=== PATIENT | male | born 1930 | race Caucasian/White ===

== ENCOUNTER 2016-06-23 11:36 | Inpatient (IN) | payer MEDICARE, BC ==
[2016-06-23] VITALS (36 sets, daily range): BP systolic 93–133; BP diastolic 59–108; PULSE 44–74; RESP 14–26; TEMP 95.9; Ht 180.3 cm; Wt 76.1 kg
[~2016-06-23] VITALS: Ht 180.3 cm; Wt 76.1 kg
[2016-06-23] MEDS ORDERED: OMEP40CA6 PO (11:45)
[2016-06-23] MEDS ORDERED: MULTI PO (11:45)
[2016-06-23] MEDS ORDERED: SIMV20TA PO (11:46)
[2016-06-23] MEDS ORDERED: ETOD400T PO (11:46)
[2016-06-23] MEDS ORDERED: PIOG30TA2 PO (11:47)
[2016-06-23] MEDS ORDERED: CEFEPIME 2GM/50 ML (PMX) 50 ML IVPB STA (11:47)
[2016-06-23] MEDS ORDERED: FURO40TA4 PO (11:47)
[2016-06-23] MEDS ORDERED: METF500T4 PO (11:47)
[2016-06-23] MEDS ORDERED: PROPOFOL 100 ML IV STA (11:50)
[2016-06-23] MEDS ORDERED: MIDAZOLAM (DRIP) 50 mg/50 mL 50 ML IV STA (11:50)
[2016-06-23] MEDS ORDERED: VANCOMYCIN 1 GM (PMX) 250 ML IVPB ONE (12:00)
[2016-06-23 12:09] LABS: ADD SCAN DIFF NO
[2016-06-23] MEDS ORDERED: SOD CHLORIDE 0.9% 100 ML ONE (12:11)
[2016-06-23] MEDS ORDERED: IODIXANOL LOCM 50 ML BTL ONE (12:11)
[2016-06-23] MEDS ORDERED: IODIXANOL LOCM 100 ML BTL ONE (12:11)
[2016-06-23 12:12] LABS: HEMATOCRIT 31.7 % (42.0-52.0); MEAN CORPUSCULAR HEMOGLOBIN 30.7 pg (29.0-33.0); MEAN CORPUSCULAR HGB CONC 31.5 g/dl (32.0-37.0); MEAN CORPUSCULAR VOLUME 97.2 fl (82.0-101.0); MEAN PLATELET VOLUME 11.4 fl (7.4-10.4); PLATELET COUNT 182 10^3/UL (140-415); RED BLOOD COUNT 3.26 10^6/ul (4.70-6.10); RED CELL DISTRIBUTION WIDTH 18.1 % (11.5-14.5); WHITE BLOOD COUNT 6.4 10^3/ul (4.8-10.8)
[2016-06-23 12:24] LABS: INR 1.78; PROTIME 20.9 Sec (12.2-14.2); PT RATIO 1.6
[2016-06-23 12:25] LABS: PARTIAL THROMBOPLASTIN TIME 49.9 Sec (25.0-35.0)
--- NOTE | 2016-06-23 12:27 | RADRPT ---
PROCEDURE: XR Chest 1 view. CLINICAL INDICATION: Shortness of breath, intubation. TECHNIQUE: AP views of the chest were obtained. COMPARISON: None. FINDINGS: The heart is large. Calcified atherosclerosis is noted in the aorta. Endotracheal tube has its tip approximately 5.3 cm above the rob. Diffuse interstitial prominence is seen in both lungs. Scat tered atelectasis is seen in both lungs. No consolidations are identified. No pneumothorax is seen. Calcified granuloma is seen at the right lung base. The osseous structures are osteopenic. Old he aled or healing lateral left third through sixth rib fractures are seen. IMPRESSION: Cardiomegaly with calcified atherosclerosis in the aorta. Endotracheal tube with its tip approximately 5.3 cm above the rob. Diffuse mild interstitial prominence in both lungs. Interstitial prominence could be chronic. Scattered subsegmental atelectasis in both lungs. Calcified granuloma at the right lung base. Old healed or healing fractures of the lateral left 3rd through 6th ribs. RPTAT: AA .Drew Scott MD, MD Date Time Electronically viewed and signed by .Drew Scott MD, MD on 06/23/2016 12:26 .P/
[2016-06-23 12:31] LABS: ALBUMIN 3.5 g/dl (3.3-4.9); POTASSIUM 3.5 mmol/L (3.5-5.1)
[2016-06-23 12:33] LABS: CREATININE 1.89 mg/dl (0.61-1.24)
[2016-06-23 12:34] LABS: ALBUMIN/GLOBULIN RATIO 1.25; BILIRUBIN,INDIRECT 0.1 mg/dl (0-1.1); BILIRUBIN,TOTAL 0.1 mg/dl (0.2-1.3); CALCIUM 8.5 mg/dl (8.4-10.2); TOTAL PROTEIN 6.3 g/dl (6.1-8.1)
[2016-06-23 12:40] LABS: TROPONIN-I 0.331 ng/ml (0.00-0.12)
--- NOTE | 2016-06-23 12:42 | RADRPT ---
PROCEDURE: CT Brain without contrast. CLINICAL INDICATION: Possible Sepsis TECHNIQUE: A multiplanar CT of the brain was performed on a CT scanner utilizing axial imaging fro m the skull base through the vertex without IV contrast. The CTDIvol is 44 mGy and the DLP is 810.2 5 mGycm. One or more of the following dose reduction techniques were utilized: Automated exposure control, adjustment of the mA and/or kV according to patient size, use of iterative reconstruction t echnique. COMPARISON: None FINDINGS: No evidence of intracranial hemorrhage or abnormal extra-axial fluid collection. Minimal periventricular and subcortical white matter low attenuation compatible with sequelae of chr onic microvascular ischemic injury. The brain parenchyma is otherwise normal attenuation and morph ology with preservation of ball white differentiation. The ventricles and subarachnoid spaces are pr ominent compatible with age appropriate volume loss.Physiologic basal ganglia calcification. Atherosclerotic calcification of the cavernous internal carotid arteries. Minimal lobulated mucosal thickening ethmoid air cells with bilateral sphenoid and right maxillary s inus fluid levels compatible with acute and chronic inflammatory change. There is complete opacific ation of the left mastoid air cells and middle ear cavity. The ossicles are intact without erosion or destruction. Normal appearance of the scutum. The basal cisterns, posterior fossa contents, brainstem, craniocervical junction, orbits, pituitary axis, paranasal sinuses, right mastoid air cells, and calvarium are unremarkable. IMPRESSION: 1. No intracranial hemorrhage or acute intracranial abnormality. 2. Marked opacification of the left mastoid air cells and middle ear cavity compatible with otomast oiditis. Small fluid levels within the sphenoid and right maxillary sinus with chronic mucosal thic kening compatible with acute and chronic inflammatory change. No evidence of ossicular erosion or d estruction. 3. Mild chronic microvascular ischemic change and age appropriate volume loss. RPTAT:AAJJ Physician Ortiz Date Time Electronically viewed and signed by Physician Ortiz on 06/23/2016 12:41 [place]/
[2016-06-23 12:47] LABS: LYMPHOCYTES # 1.1 10^3/ul (0.8-2.9); MONOCYTE # 0.2 10^3/ul (0.3-0.9); NEUTROPHIL # 3.5 10^3/ul (1.6-7.5)
--- NOTE | 2016-06-23 13:01 | RADRPT ---
AMENDMENT: 06/23/2016 1:59:58 PM Alex Ken Md These findings were discussed with Dr. Hernandez over the phone on 06/23/2016 at 13:50 hours . PROCEDURE: CT angiogram of the chest, abdomen and pelvis with 3-D reconstructions CLINICAL INDICATION: r/o PE TECHNIQUE: CT angiogram of the chest, abdomen and pelvis was performed on a multislice CT scanner. The patient was scanned after administration of intravenous contrast. Sagittal and coronal reform atted images were obtained from the axial source images. 3D MIP reformatted images were also created from the axial source images. DLP 933.31 mGycm CTDI vol 35.21, 10.59 mGy COMPARISON: None FINDINGS: ANGIOGRAM FINDINGS: There are no pulmonary emboli. There is no acute dissection or aneurysm of the thoracic or abdominal aorta. The aortic root measures 3.3 cm in diameter. The ascending aorta measures 3.9 cm in diameter. The mid aortic arch measures 2.8 cm in diameter. Great vessel origins off the aortic arch are widel y patent. A bovine arch is noted. The descending thoracic aorta measures 2.8 cm in diameter at the level of the left pulmonary artery and 2.6 cm in diameter just above the diaphragmatic hiatus. The celiac, SMA, and STEFFI are widely patent. There are single renal arteries bilaterally which are widely patent. There is tortuosity of the infrarenal aorta as well as focal ectasia up to 2.9 cm in diameter with a center line measurement. Common, internal and external iliac arteries are patent bilaterally. The HAND TUFTER and proximal SFA and profunda arteries are patent bilaterally. ANCILLARY FINDINGS: There are nondisplaced fractures in the anterolateral aspect of the right ribs 2-5 with a mildly dis placed fracture of the inferolateral aspect of the right sixth rib. Deformities of the anterolateral aspect of the left ribs 2-7 is likely from subacute to chronic frac tures. Loss of height the superior endplate of L2 is likely from a prominent Schmorl's node or, less likely , an age - indeterminate compression fracture. Stippled calcifications are noted in the proximal right femur, right iliac wing, and the L1 vertebra l body which are nonspecific, but may be enchondromas. The tip of an endotracheal tube is noted above the rob. There is a calcified granuloma in the right lower lobe. There is mild cardiomegaly. A Anderson catheter balloon is noted. The appendix is within normal limits. There are colonic diverticula without evidence of diverticulitis. IMPRESSION: Nondisplaced fractures of the right ribs 2-5 as well as a mildly displaced fracture of the right six th rib. Subacute to chronic fractures of the left ribs 2-7. Loss of height at the superior endplate of L2 is likely from a prominent Schmorl's node although an age - indeterminate compression fracture cannot be excluded. Correlation with physical exam for ten derness to palpation is recommended. No CT evidence for pulmonary emboli. 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 Endotracheal tube above the rob. Mild cardiomegaly. RPTAT: EE Physician Tomas Date Time Electronically viewed and signed by Physician Tomas on 06/23/2016 14:00 /
--- NOTE | 2016-06-23 13:31 | RADRPT ---
PROCEDURE: XR Chest. CLINICAL INDICATION: TLc placement TECHNIQUE: Single frontal view of the chest was obtained. COMPARISON: CTA chest/abdomen/pelvis from 06/23/2016 FINDINGS: The tip of an endotracheal tube is noted above the rob. There is mild cardiomegaly with mild prominence of interstitial markings, likely due to congestive c hanges. A calcified granuloma is noted at the right lung base. The aortic arch is calcified. There is no significant pleural effusion or pneumothorax. IMPRESSION: No focal infiltrates or effusions. Endotracheal tube above the rob. Mild cardiomegaly and congestive changes. Aortic atherosclerosis. Please note that acute fractures of right ribs 2-6 as well as subacute to chronic fractures of the l eft ribs 2-7 are identified on the CTA study from the same date which are not well visualized in the current chest x-ray study. RPTAT: EE Physician Tomas Date Time Electronically viewed and signed by Physician Tomas on 06/23/2016 13:31 /
[2016-06-23 13:33] LABS: ADD UMIC YES; URINE BILIRUBIN (Dip) 1+ (NEGATIVE); URINE BLOOD (Dip) 1+ (NEGATIVE); URINE COLOR LT. YELLOW (YELLOW); URINE GLUCOSE (Dip) NEGATIVE (NEGATIVE); URINE KETONES (Dip) NEGATIVE (NEGATIVE); URINE LEUKOCYTE ESTERASE (Dip) NEGATIVE (NEGATIVE); URINE NITRITE (Dip) NEGATIVE (NEGATIVE); URINE TOTAL PROTEIN (Dip) 1+ (NEGATIVE); URINE UROBILINOGEN (Dip) 0.2 E.U./dL (0.1-1.0)
[2016-06-23] MEDS ORDERED: VECURONIUM 100 MG in DEXTROSE 5% 100 ML IV ONE (13:34)
[2016-06-23 13:44] LABS: SQUAMOUS EPITHELIAL CELL,UR FEW; URINE RBCS 0-2 /HPF (0)
[2016-06-23 13:45] LABS: AADO2 Arterial 234.7 mmHg (7.0-24.0); Allen Test ACCEPTAB; Arterial Base Excess -4.8 mmol/L (-3.0-3); Arterial COHb 0.3 % (0.0-3.0); Arterial Fraction of Oxyhgb 98.3 % (93.0-99.0); Arterial HCO3 19.1 mmol/L (22.0-26.0); Arterial MetHb 0.6 % (0.0-1.5); Arterial Total Hemglobin 8.7 g/dl (12.0-18.0); MODE VENT - AC
[2016-06-23] MEDS ORDERED: VECURONIUM 10 MG VIAL IV ONE (14:00)
[2016-06-23] MEDS ORDERED: ASPIRIN 300 MG SUPP PR ONE (14:00)
--- NOTE | 2016-06-23 14:44 | ERA ---
ER Documentation Chief Complaint Date/Time DATE: 06/23/16 TIME: 14:35 Chief Complaint BROUGHT IN VIA EMS FROM HOME DUE TO CARDIAC ARREST HPI History unobtainable from patient secondary to his critical condition at this time. History is obtained from EMS. This is an 85-year-old male who was transported via ambulance to the emergency room after a cardiac arrest. According to EMS when they arrived at the patient's home the patient was unresponsive, he was in a PEA rhythm. CPR was started and the patient was given a total of 3 mg of epinephrine. There was return of spontaneous circulation and the patient was transported to the emergency room for further evaluation. According to patient's family members the patient was doing fine last night, was complaining of mild back pain. The patient was not complaining of any chest pain or shortness of breath this morning according to his . ROS All systems reviewed and are negative except as per history of present illness. Medications Home Meds Reported Medications Pioglitazone Hcl* (Actos*) 30 Mg Tablet, 30 MG PO DAILY, #30 TAB 06/23/16 Furosemide* (Furosemide*) 40 Mg Tablet, 40 MG PO BID, TAB 06/23/16 Metformin Hcl* (Metformin Hcl*) 500 Mg Tablet, 1000 MG PO WITH BREAKFAST, #30 TAB 06/23/16 Simvastatin* (Zocor*) 20 Mg Tablet, 20 MG PO QHS, #30 TAB 06/23/16 Etodolac (Etodolac) 400 Mg Tablet, 400 MG PO BID Y for PAIN, TAB 06/23/16 Multivitamins* (Theragran*) 1 Tab Tab, 1 TAB PO DAILY, TAB 06/23/16 Omeprazole* (Omeprazole*) 40 Mg Capsule.dr, 40 MG PO DAILY, #30 CAP 06/23/16 Allergies Allergies: Coded Allergies: No Known Allergies (Unverified Allergy, Unknown, 06/23/16) PMhx/Soc Medical and Surgical Hx: Unable to obtain Hx Alcohol Use: Yes Hx Substance Use: No Hx Tobacco Use: No Smoking Status: Never smoker Physical Exam Vitals Vital Signs Date Time Temp Pulse Resp B/P Pulse Ox O2 Delivery O2 Flow Rate FiO2 06/23/16 11:46 97.9 104 18 131/112 96 Physical Exam INITIAL VITAL SIGNS: Reviewed by me GENERAL: The patient is well developed, severe respiratory distress, mildly cyanotic HEENT: Pupils equal, round, and reactive to light. There is no scleral icterus. NECK: Mild bilateral JVD, C-spine is soft and supple, there is no meningismus. There is no cervical lymphadenopathy. LUNGS: Coarse breath sounds bilaterally. There are no rales, wheezes or rhonchi. HEART: Irregularly irregular rhythm no murmurs, clicks, rubs or gallops. ABDOMEN: Soft, non-tender, non-distended. There are bowel sounds in all four quadrants. No rebound or guarding. EXTREMITIES: There is no peripheral cyanosis or edema. No focal swelling or erythema. NEUROLOGICAL: GCS of 3 SKIN: There is no apparent rash or petechiae. HEME/LYMPHATIC: There is no evidence of excessive bruising or lymphedema. PSYCHIATRIC: Unable to assess secondary to clinical condition Result Diagram: 06/23/16 1150 06/23/16 1150 Results 24 hrs Laboratory Tests Test 06/23/16 11:47 06/23/16 11:50 06/23/16 12:40 06/23/16 13:43 Blood Gas Specimen Source Blood arterial Arterial Blood Date Drawn 06/23/2016 1:36:31 PM Arterial Blood pH (Temp corrected) 7.411 Arterial Blood pCO2 (Temp correct) 30.8mmhg Arterial Blood pO2 (Temp corrected) 447.5mmHG Arterial Blood HCO3 19.1mmol/L Arterial Blood Base Excess -4.8mmol/L Arterial Blood Oxygen Saturation 99.2mmHG Dexter Test ACCEPTAB Arterial Blood Gas Puncture Site Right Radial Arterial Blood Carboxyhemoglobin 0.3% Arterial Blood Methemoglobin 0.6% Blood Gas A-a O2 Differential 234.7mmHg Oxyhemoglobin Percent 98.3% Total Hemoglobin 8.7g/dl Blood Gas Temperature 37.0C Blood Gas Respiration Rate 16.0 Blood Gas Actual Respiration Rate 17 Blood Gas Modality VENT - AC FiO2 100.0% Blood Gas Tidal Volume 550.0mL Blood Gas Low PEEP Setting 5.0cmH2O Blood Gas Notified Whom JLD Blood Gas Notified Time 06/23/2016 1:45:25 PM White Blood Count 6.410^3/ul Red Blood Count 3.2610^6/ul Hemoglobin 10.0g/dl Hematocrit 31.7% Mean Corpuscular Volume 97.2fl Mean Corpuscular Hemoglobin 30.7pg Mean Corpuscular Hemoglobin Concent 31.5g/dl Red Cell Distribution Width 18.1% Platelet Count 15161^3/UL Mean Platelet Volume 11.4fl Neutrophils % 55.0% Band Neutrophils % 25.0% Lymphocytes % 17.0% Monocytes % 3.0% Eosinophils % % Basophils % % Nucleated Red Blood Cells % /100WBC Neutrophils # 3.510^3/ul Lymphocytes # 1.110^3/ul Monocytes # 0.210^3/ul Eosinophils # 10^3/ul Basophils # 10^3/ul Nucleated Red Blood Cells # 10^3/ul Prothrombin Time 20.9Sec Prothrombin Time Ratio 1.6 INR International Normalized Ratio 1.78 Activated Partial Thromboplast Time 49.9Sec Sodium Level 143mmol/L Potassium Level 3.5mmol/L Chloride Level 102mmol/L Carbon Dioxide Level 19mmol/L Anion Gap 26 Blood Urea Nitrogen 36mg/dl Creatinine 1.89mg/dl Glucose Level 174mg/dl Lactic Acid Level 10.8mmol/L Calcium Level 8.5mg/dl Total Bilirubin 0.1mg/dl Direct Bilirubin 0.00mg/dl Indirect Bilirubin 0.1mg/dl Aspartate Amino Transf (AST/SGOT) 389IU/L Alanine Aminotransferase (ALT/SGPT) 178IU/L Alkaline Phosphatase 67IU/L Creatine Kinase 1171IU/L Troponin I 0.331ng/ml Total Protein 6.3g/dl Albumin 3.5g/dl Globulin 2.80g/dl Albumin/Globulin Ratio 1.25 Urine Color LT. YELLOW Urine Clarity CLEAR Urine pH 5.0 Urine Specific [place] 1.020 Urine Ketones NEGATIVE Urine Nitrite NEGATIVE Urine Bilirubin 1+ Urine Ictotest Pending Urine Urobilinogen 0.2 E.U./dL Urine Leukocyte Esterase NEGATIVE Urine Microscopic RBC 0-2/HPF Urine Microscopic WBC 0-2/HPF Urine Squamous Epithelial Cells FEW Urine Hyaline Casts RARE Urine Hemoglobin 1+ Urine Glucose NEGATIVE% Urine Total Protein 1+ Bedside Glucose 127mg/dL Current Medications Medications (Trade) Dose Ordered Sig/Radhika Route PRN Reason Start Time Stop Time Status Last Admin Dose Admin Cefepime HCl 50 ml @ 100 mls/hr ONCE STAT IVPB 06/23/16 11:47 06/23/16 12:16 DC Vancomycin HCl 250 ml @ 125 mls/hr ONCE ONCE IVPB 06/23/16 12:00 06/23/16 13:59 DC Propofol 100 ml @ 2.182 mls/ hr ONCE STAT IV 06/23/16 11:50 06/25/16 09:39 Midazolam HCl 50 ml @ 3 mls/hr ONCE STAT IV 06/23/16 11:50 06/24/16 04:29 06/23/16 12:20 Norepinephrine (Levophed) 250 ml @ 1.875 mls/ hr TITRATE IV 06/23/16 12:00 IV Flush 10 ml 10 ml STK-MED ONCE .ROUTE 06/23/16 12:11 06/23/16 12:12 DC 06/23/16 12:40 Sodium Chloride (NS) 100 ml @ ud STK-MED ONCE .ROUTE 06/23/16 12:11 06/23/16 12:12 DC 06/23/16 12:40 Iodixanol (Visipaque Locm) 100 ml STK-MED ONCE .ROUTE 06/23/16 12:11 06/23/16 12:12 DC 06/23/16 12:41 Iodixanol 50 ml 50 ml STK-MED ONCE .ROUTE 06/23/16 12:11 06/23/16 12:12 DC 06/23/16 12:41 Vecuronium Dickens/Dextrose (Norcuron/D5W) 100 ml @ 4.36 mls/hr [id number] ONCE IV 06/23/16 13:34 06/24/16 12:30 06/23/16 14:11 Vecuronium Dickens (Norcuron) 7.3 mg ONCE ONCE IV 06/23/16 14:00 06/23/16 14:01 DC 06/23/16 14:10 Aspirin (Aspirin) 300 mg ONCE ONCE NH 06/23/16 14:00 06/23/16 14:01 DC Procedures/MDM EKG: #1 Rate/Rhythm: Atrial fibrillation QRS, ST, T-waves: [No changes consistent w/ acute ischemia] Impression: Atrial fibrillation with right bundle branch block EKG: #2 Rate/Rhythm: Atrial fibrillation QRS, ST, T-waves: [No changes consistent w/ acute ischemia] Impression: Atrial fibrillation with right bundle branch block Chest X-ray 1V Interpreted by me: Soft Tissue: No acute abnormalities Bones: No acute abnormalities Mediastinum/Cardiac Silhouette/Lungs: Pulmonary vascular congestion Chest X-ray 1V Interpreted by me: Soft Tissue: ET tube above rob , right triple-lumen catheter in place Bones: Acute right-sided nondisplaced rib fractures Mediastinum/Cardiac Silhouette/Lungs: [No acute abnormalities] CT angiography chest, abdomen and pelvis: Nondisplaced fractures of the right ribs 2-5 as well as a mildly displaced fracture of the right sixth rib. Subacute to chronic fractures of the left ribs 2-7. Loss of height at the superior endplate of L2 is likely from a prominent Schmorl 's node although an age - indeterminate compression fracture cannot be excluded. Correlation with physical exam for tenderness to palpation is recommended. No CT evidence for pulmonary emboli. 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 Endotracheal tube above the rob. Mild cardiomegaly. CT brain: 1. No intracranial hemorrhage or acute intracranial abnormality. 2. Marked opacification of the left mastoid air cells and middle ear cavity compatible with otomastoiditis. Small fluid levels within the sphenoid and right maxillary sinus with chronic mucosal thickening compatible with acute and chronic inflammatory change. No evidence of ossicular erosion or destruction. 3. Mild chronic microvascular ischemic change and age appropriate volume loss. Central Line Placement by me: Patient consented, sterilely draped, full prep, gown, glove, mask, time out performed. Anesthesia: 1% lidocaine locally Location: Right internal jugular vein Device: Multiple lumen Technique: Seldinger technique. Secured with suture. Results: Venous return from all ports with easy saline flush. No complications. Guide wire retrieved and disposed of. [ED Ultrasound: Central line placed by me using concurrent ultrasound guidance. Real time image archived in the medical record confirms vascular anatomy. [Chest X-ray 1V Interpreted by me: Central line in SVC, Normal soft tissue, No evidence of pneumothorax.] Endotracheal Intubation by me: Pre assessment performed. See preceding note for details. Pre-oxygenation performed with 100% oxygen RSI: Performed w/o complication or hypoxic events. Medications as ordered. Blade: [Mac 4] ET Tube: [7.5] cm Depth: 26] cm at the lip Intubation confirmed by colorimetric CO2, equal breath sounds, quiet over the stomach. Chest X-ray 1V Interpreted by me: 3 cm above the rob ET tube. Normal soft tissue, No pneumothorax. This 85-year-old male presents to the emergency room for evaluation of cardiac arrest. When I evaluated him he did have a pulse, however he was unresponsive. He did have a Baxter tube in place. I did replace a Baxter tube with a definitive airway via endotracheal tube. This patient did have a blood pressure of 592/64. He was mildly cyanotic prior to replacement of his airway. EKG does reveal atrial fibrillation with right bundle branch block. CT of the head is normal does not show any acute intracranial abnormalities. CT angios the chest abdomen pelvis shows mild aneurysmal dilation of the aorta, however no rupture and no pulmonary embolism. Thinks this patient was started on the hypothermia protocol. I did place a right-sided internal jugular triple- lumen catheter. The patient is sedated at this time with Versed, and paralyzed with rocuronium. I have spoken to the family members who is aware of his condition. I have contacted his primary care physician, Dr. Elizabeth who would like the patient admitted to Dr. Falcon. I contacted Dr. Falcon, and he accepted the patient. The patient will be seen by gravel wheeler, Dr. lawrence. This patient does have rib fractures noted on CAT scan likely secondary to chest compressions prior to arrival in the emergency room. This patient had severe lactic acidosis which is responding to IV fluids. Patient also had an elevation in troponin. Rectal aspirin was given. There is no need for vasopressors at this time as his systolic blood pressure is 112. This patient has a known history of atrial fibrillation, atrial fibrillation is not new. He was taken off blood thinners approximately 1 week ago. Critical Care: Excluding all billable procedures Time: 55 minutes Treatments/Evaluations: Close monitoring and treatment of unstable vital signs, cardiorespiratory, and neurologic status, while maintaining tight balance of fluid, respiratory, and cardiac interventions. Departure Diagnosis: Primary Impression: Cardiac arrest Additional Impressions: Non-ST elevation CT (NSTEMI) Rhabdomyolysis Lactic acidosis Renal insufficiency Normocytic anemia Condition: Critical SAMIA FAN DO Jun 23, 2016 14:44
[2016-06-23 14:56] LABS: ICTOTEST NEGATIVE (NEGATIVE)
[2016-06-23] MEDS: NORepinephrine 8MG/250 ML (PMX 250 ML IV SCH (15:37)
[2016-06-23] MEDS ORDERED: SOD CHLORIDE 0.9% 1,000 ML IV SCH (15:52)
[2016-06-23] MEDS ORDERED: ACETAMINOPHEN 650MG/20.3ML CUP PO PRN (16:00)
[2016-06-23] MEDS: PIPER-TAZO 3.375 GM IV (PMX) 100 ML IVPB SCH ×2 (16:00→21:41)
[2016-06-23] MEDS ORDERED: DEXTROSE 50% 50 ML SYRINGE IV PRN ×2 (16:00)
[2016-06-23] MEDS ORDERED: PROPOFOL 100 ML IV SCH (16:00)
[2016-06-23] MEDS ORDERED: ACETAMINOPHEN 650 MG SUPP PR PRN (16:00)
[2016-06-23] MEDS ORDERED: MEPERIDINE 25 MG INJ IV PRN ×2 (16:00)
[2016-06-23] MEDS ORDERED: INSULIN HUMAN REGULAR 100 UNIT in SOD CHLORIDE 0.9% 99 ML IV SCH (16:00)
--- NOTE | 2016-06-23 16:37 | PN ---
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 History is obtained from EMS. This is an 85-year-old male who was transported via ambulance to the emergency room after a cardiac arrest. According to EMS when they arrived at the patient's home the patient was unresponsive, he was in a PEA rhythm. CPR was started and the patient was given a total of 3 mg of epinephrine. There was return of spontaneous circulation and the patient was transported to the emergency room for further evaluation. According to patient's family members the patient was doing fine last night, was complaining of mild back pain. The patient was not complaining of any chest pain or shortness of breath this morning according to his . - i spoke wth his and hsi primary cardiologits Exam/Review of Systems Vital Signs Vitals Vital Signs Date Time Temp Pulse Resp B/P Pulse Ox O2 Delivery O2 Flow Rate FiO2 06/23/16 15:00 95.9 16 94/63 Mechanical Ventilator 06/23/16 13:15 116 06/23/16 11:46 96 Results Result Diagram: 06/23/16 1150 06/23/16 1150 Results 24 hrs Laboratory Tests Test 06/23/16 11:47 06/23/16 11:50 06/23/16 12:40 06/23/16 13:40 Blood Gas Specimen Source Blood arterial Arterial Blood Date Drawn 06/23/2016 1:36:31 PM Arterial Blood pH (Temp corrected) 7.411 Arterial Blood pCO2 (Temp correct) 30.8 L Arterial Blood pO2 (Temp corrected) 447.5 H Arterial Blood HCO3 19.1 L Arterial Blood Base Excess -4.8 L Arterial Blood Oxygen Saturation 99.2 Dexter Test ACCEPTAB Arterial Blood Gas Puncture Site Right Radial Arterial Blood Carboxyhemoglobin 0.3 Arterial Blood Methemoglobin 0.6 Blood Gas A-a O2 Differential 234.7 H Oxyhemoglobin Percent 98.3 Total Hemoglobin 8.7 L Blood Gas Temperature 37.0 Blood Gas Respiration Rate 16.0 Blood Gas Actual Respiration Rate 17 Blood Gas Modality VENT - AC FiO2 100.0 Blood Gas Tidal Volume 550.0 Blood Gas Low PEEP Setting 5.0 Blood Gas Notified Whom JLD Blood Gas Notified Time 06/23/2016 1:45:25 PM White Blood Count 6.4 Red Blood Count 3.26 L Hemoglobin 10.0 L Hematocrit 31.7 L Mean Corpuscular Volume 97.2 Mean Corpuscular Hemoglobin 30.7 Mean Corpuscular Hemoglobin Concent 31.5 L Red Cell Distribution Width 18.1 H Platelet Count 182 Mean Platelet Volume 11.4 H Neutrophils % 55.0 Band Neutrophils % 25.0 H Lymphocytes % 17.0 Monocytes % 3.0 Eosinophils % Basophils % Nucleated Red Blood Cells % Neutrophils # 3.5 Lymphocytes # 1.1 Monocytes # 0.2 L Eosinophils # Basophils # Nucleated Red Blood Cells # Prothrombin Time 20.9 H Prothrombin Time Ratio 1.6 INR International Normalized Ratio 1.78 Activated Partial Thromboplast Time 49.9 H Sodium Level 143 Potassium Level 3.5 Chloride Level 102 Carbon Dioxide Level 19 L Anion Gap 26 H Blood Urea Nitrogen 36 H Creatinine 1.89 H Glucose Level 174 Lactic Acid Level 10.8 *H 7.1 *H Calcium Level 8.5 Total Bilirubin 0.1 L Direct Bilirubin 0.00 Indirect Bilirubin 0.1 Aspartate Amino Transf (AST/SGOT) 389 H Alanine Aminotransferase (ALT/SGPT) 178 H Alkaline Phosphatase 67 Creatine Kinase 1171 H Troponin I 0.331 *H Total Protein 6.3 Albumin 3.5 Globulin 2.80 Albumin/Globulin Ratio 1.25 Urine Color LT. YELLOW Urine Clarity CLEAR Urine pH 5.0 Urine Specific [place] 1.020 Urine Ketones NEGATIVE Urine Nitrite NEGATIVE Urine Bilirubin 1+ H Urine Ictotest NEGATIVE Urine Urobilinogen 0.2 E.U./dL Urine Leukocyte Esterase NEGATIVE Urine Microscopic RBC 0-2 Urine Microscopic WBC 0-2 Urine Squamous Epithelial Cells FEW Urine Hyaline Casts RARE Urine Hemoglobin 1+ H Urine Glucose NEGATIVE Urine Total Protein 1+ H Test 06/23/16 13:43 Bedside Glucose 127 Medications Medications Current Medications Norepinephrine 250 ml @ 1.875 mls/ hr TITRATE IV Last administered on t 15:37; Admin Dose 18.75 MLS/HR; Start 06/23/16 at 12:00 Sodium Chloride 1,000 ml @ 100 mls/hr Q10H IV ; Start 06/23/16 at 15:52 Vecuronium [place]/Dextrose (Norcuron/D5W) 100 ml @ 4.36 mls/hr [id number] IV ; Start 06/23/16 at 15:52 Acetaminophen (Tylenol Supp) 650 mg Q4H PRN [place] TEMP > 37C; Start 06/23/16 at 16 :00 Acetaminophen (Tylenol Liquid) 650 mg Q4H PRN PO TEMP > 37C; Start 06/23/16 at 16:00 Acetaminophen (Tylenol Supp) 500 mg Q6H IA ; Start 06/24/16 at 16:00 Acetaminophen (Tylenol Liquid) 500 mg Q6H PO ; Start 06/24/16 at 16:00 Meperidine HCl (Demerol) 12.5 mg Q4H PRN IV POST OPERATIVE SHIVERING; Start at 16:00 Meperidine HCl (Demerol) 25 mg Q4H PRN IV POST OPERATIVE SHIVERING; Start 06/23 at 16:00 Eye Lubricant (Akwa Oint) 1 applic Q6 BOTH EYES ; Start 06/23/16 at 18:00 Eye Lubricant (Artificial Tears Oph) 2 drop Q6 BOTH EYES ; Start 06/23/16 at 18: 00 Diagnostic Test (Pha) (Accu-Chek) 1 ea Q1H XX ; Start 06/23/16 at 16:00 Dextrose (D50w Syringe) 25 ml Q15M PRN IV Till BS 80 mg/dL or above x2; Start 06/23/16 at 16:00 Dextrose 50 ml 50 ml Q15M PRN IV Till BS 80 mg/dL or above x2; Start 06/23/16 at 16:00 Piperacillin Sod/ Tazobactam Sod (Zosyn 3.375gm/ 100 ml (Pmx)) 100 ml @ 200 mls /hr Q8 IVPB ; Start 06/23/16 at 16:00 MARIA ESTHER INMAN MD Jun 23, 2016 16:37
[2016-06-23] MEDS: ACCU-CHEK XX SCH ×7 (17:00→23:00)
--- NOTE | 2016-06-23 17:44 | RADRPT ---
PROCEDURE: XR Abdomen. CLINICAL INDICATION: Abdomen pain. TECHNIQUE: AP supine abdomen x-ray. COMPARISON: None. FINDINGS: The bowel gas pattern is normal. There is a nasogastric tube with the tip in the stomach. There is no evidence of obstruction. Vascular calcifications are present consistent with atheroscler osis. There are no abnormal calcifications overlying the urinary tracts. There are severe degenerative changes throughout the lumbar spine. IMPRESSION: 1. Atherosclerosis. 2. Severe degenerative changes of the lumbar spine. 3. Nasogastric tube tip in the stomach. 4. Otherwise unremarkable supine abdomen radiograph. RPTAT: QQ .Gutierrez Morgan MD, MD Date Time Electronically viewed and signed by .Gutierrez Morgan MD, on 06/23/2016 17:43 .R/
[2016-06-23] MEDS: LACTATED RINGER'S 1,000 ML IV SCH (18:52)
[2016-06-23 18:54] LABS: ADD SCAN DIFF NO
[2016-06-23 18:59] LABS: ABNORMAL IP MESSAGE 1; HEMATOCRIT 29.5 % (42.0-52.0); HEMOGLOBIN 9.8 g/dl (14.0-18.0); MEAN CORPUSCULAR HEMOGLOBIN 30.9 pg (29.0-33.0); MEAN CORPUSCULAR HGB CONC 33.2 g/dl (32.0-37.0); MEAN CORPUSCULAR VOLUME 93.1 fl (82.0-101.0); MEAN PLATELET VOLUME 11.1 fl (7.4-10.4); PLATELET COUNT 129 10^3/UL (140-415); RED BLOOD COUNT 3.17 10^6/ul (4.70-6.10); RED CELL DISTRIBUTION WIDTH 18.1 % (11.5-14.5); WHITE BLOOD COUNT 9.1 10^3/ul (4.8-10.8)
[2016-06-23] MEDS: VECURONIUM 100 MG in DEXTROSE 5% 100 ML IV SCH (19:00)
[2016-06-23] MEDS: POTASSIUM CHLORIDE 50 ML IVPB PRN ×3 (19:40→23:13)
--- NOTE | 2016-06-23 19:52 | CONS ---
DATE OF ADMISSION: 06/23/2016 DATE OF CONSULTATION: TYPE OF CONSULTATION: Pulmonary. REASON FOR ADMISSION: Cardiac arrest. HISTORY OF PRESENT ILLNESS: This is an 85-year-old gentleman brought in to the hospital following c ardiac arrest. The patient was found unresponsive at home in PEA rhythm. CPR was commenced with ad dition of epinephrine. He had return of circulation. Upon arrival of the family, the patient was p laced on hypothermia protocol. Currently remains intubated and sedated on mechanical ventilation an d hypothermia protocol. PAST MEDICAL HISTORY: Diabetes mellitus, hypertension, hyperlipidemia. MEDICATIONS: Per chart. ALLERGIES: NONE. SOCIAL HISTORY: Nonsmoker, no alcohol, no history of drug use. FAMILY HISTORY: Noncontributory. SYSTEMS REVIEW: A 12-point review of systems is unable to perform. PHYSICAL EXAMINATION: GENERAL: Elderly-appearing gentleman, intubated on mechanical ventilation, appears comfortable at r est, no acute distress. VITAL SIGNS: Currently afebrile, temperature 98, pulse is 100, blood pressure 130/100, O2 saturatio n 96% on FIO2 of 100%. NECK: Supple. No JVD or lymphadenopathy. CARDIAC: S1, S2, no added sounds or murmurs. CHEST: Diminished air entry bilaterally. ABDOMEN: Soft, nontender. No guarding or rebound. EXTREMITIES: No cyanosis, clubbing, 1+ edema. NEUROLOGIC: Unable to assess. LABORATORY DATA: White count 6.4, hemoglobin 10, platelets of 118, BUN 36, creatinine 1.89. Lactic acid initially 10.8 and now 7.1. Troponin 0.331. CK 117. Arterial blood gas pH 7.41, pCO2 of 30, PaO2 of 447. DIAGNOSTIC DATA: Chest x-ray was reviewed, shows mild CHF. CT of the brain shows no acute intracra nial abnormality. CT chest shows nondisplaced rib fractures on the right side, ribs 2 to 5. No pul monary embolism. IMPRESSION AND PLAN: 1. Cardiopulmonary arrest. 2. Likely anoxic brain injury. 3. Evidence of early rhabdomyolysis with renal insufficiency. 4. Possible anoxic brain injury. 5. Incomplete data. PLAN: 1. Continue mechanical ventilation. 2. Hypothermia protocol. 3. Antibiotics for possible aspiration pneumonia. 4. Aggressive volume resuscitation. 5. DVT and GI prophylaxis. 6. Obtain all family history. 7. Address code status with family members. Dictated By: SHAHNAZ PULIDO/DEVON Conf#: [id number] [facility]#: [id number]
[2016-06-23 19:58] LABS: LYMPHOCYTES # 1.3 10^3/ul (0.8-2.9); MONOCYTE # 0.5 10^3/ul (0.3-0.9); NEUTROPHIL # 6.6 10^3/ul (1.6-7.5)
[2016-06-23 20:01] LABS: ANISOCYTOSIS 1+
[2016-06-23 20:02] LABS: HELMET CELLS 1+; HYPOCHROMASIA 1+; MICROCYTOSIS 1+; OVALOCYTES 1+; PLATELET ESTIMATE PLT APPEAR ADEQUATE; POIKILOCYTOSIS 1+
[2016-06-23] MEDS: OCULAR LUBRICANT 3.5 GM OPH OINT BOTH EYES SCH (21:35)
[2016-06-23] MEDS: ARTIFICIAL TEARS 15 ML OPH BOTH EYES SCH (21:35)
[2016-06-23 22:00] LABS: AADO2 Arterial 195.1 mmHg (7.0-24.0); Allen Test ACCEPTAB; Arterial Base Excess -5.3 mmol/L (-3.0-3); Arterial COHb 0.3 % (0.0-3.0); Arterial Fraction of Oxyhgb 98.9 % (93.0-99.0); Arterial HCO3 18.3 mmol/L (22.0-26.0); Arterial MetHb 0.1 % (0.0-1.5); Arterial Total Hemglobin 11.5 g/dl (12.0-18.0); MODE VENT - AC
[2016-06-23] MEDS: MIDAZOLAM (DRIP) 50 mg/50 mL 50 ML IV SCH (23:12)
[2016-06-24] VITALS (94 sets, daily range): BP systolic 71–154; BP diastolic 49–130; PULSE 39–80; RESP 14–19
[2016-06-24] MEDS: OCULAR LUBRICANT 3.5 GM OPH OINT BOTH EYES SCH ×4 (00:18→17:54)
[2016-06-24] MEDS: ARTIFICIAL TEARS 15 ML OPH BOTH EYES SCH ×4 (00:18→17:54)
[2016-06-24 00:36] LABS: ADD SCAN DIFF NO
[2016-06-24 00:39] LABS: ABNORMAL IP MESSAGE 1; BASOPHILS % 0.2 % (0.0-2.0); HEMOGLOBIN 9.8 g/dl (14.0-18.0); LYMPHOCYTES # 0.3 10^3/ul (0.8-2.9); LYMPHOCYTES % 2.5 % (15.0-51.0); MEAN CORPUSCULAR HEMOGLOBIN 31.1 pg (29.0-33.0); MEAN CORPUSCULAR HGB CONC 33.8 g/dl (32.0-37.0); MEAN CORPUSCULAR VOLUME 92.1 fl (82.0-101.0); MEAN PLATELET VOLUME 11.3 fl (7.4-10.4); MONOCYTE # 0.4 10^3/ul (0.3-0.9); MONOCYTES % 3.5 % (0.0-11.0); NEUTROPHIL # 10.8 10^3/ul (1.6-7.5); PLATELET COUNT 126 10^3/UL (140-415); RED BLOOD COUNT 3.15 10^6/ul (4.70-6.10); WHITE BLOOD COUNT 11.7 10^3/ul (4.8-10.8)
[2016-06-24 00:51] LABS: INR 1.75; PROTIME 20.6 Sec (12.2-14.2); PT RATIO 1.6
[2016-06-24 00:52] LABS: PARTIAL THROMBOPLASTIN TIME 40.2 Sec (25.0-35.0)
[2016-06-24 00:53] LABS: NEUTROPHILS % 92.7 % (39.0-77.0)
[2016-06-24 00:54] LABS: CALCIUM 7.6 mg/dl (8.4-10.2); CREATININE 1.97 mg/dl (0.61-1.24); MAGNESIUM 1.7 mg/dl (1.7-2.5); PHOSPHORUS 3.4 mg/dl (2.5-4.9); POTASSIUM 3.3 mmol/L (3.5-5.1)
[2016-06-24] MEDS: ACCU-CHEK XX SCH ×24 (01:00→23:00)
[2016-06-24 01:22] LABS: TROPONIN-I 1.37 ng/ml (0.00-0.12)
[2016-06-24 04:16] LABS: AADO2 Arterial 155.6 mmHg (7.0-24.0); Allen Test ACCEPTAB; Arterial Base Excess -4.9 mmol/L (-3.0-3); Arterial COHb 0.2 % (0.0-3.0); Arterial Fraction of Oxyhgb 98.6 % (93.0-99.0); Arterial HCO3 18.6 mmol/L (22.0-26.0); Arterial MetHb 0.4 % (0.0-1.5); Arterial Total Hemglobin 12.4 g/dl (12.0-18.0); MODE VENT - AC
[2016-06-24] MEDS: PIPER-TAZO 3.375 GM IV (PMX) 100 ML IVPB SCH ×3 (06:25→21:11)
[2016-06-24 06:34] LABS: ADD SCAN DIFF NO
[2016-06-24 06:40] LABS: ABNORMAL IP MESSAGE 1; HEMATOCRIT 29.4 % (42.0-52.0); HEMOGLOBIN 9.7 g/dl (14.0-18.0); MEAN CORPUSCULAR HEMOGLOBIN 30.1 pg (29.0-33.0); MEAN CORPUSCULAR VOLUME 91.3 fl (82.0-101.0); MEAN PLATELET VOLUME 11.5 fl (7.4-10.4); PLATELET COUNT 113 10^3/UL (140-415); RED BLOOD COUNT 3.22 10^6/ul (4.70-6.10); RED CELL DISTRIBUTION WIDTH 18.1 % (11.5-14.5); WHITE BLOOD COUNT 9.9 10^3/ul (4.8-10.8)
--- NOTE | 2016-06-24 06:44 | RADRPT ---
PROCEDURE: XR Chest. CLINICAL INDICATION: Cardiac arrest TECHNIQUE: An AP view of the chest was obtained. COMPARISON: Chest x-ray dated 06/23/2016 FINDINGS: The endotracheal tube tip is approximately 3.8 cm above the rob. The tip of the enteric tube ex tends below the left diaphragm. There is a right internal jugular central venous catheter with tip n ear the cavoatrial junction. There is prominence of the interstitial and central pulmonary vascular markings with bibasilar inte rstitial opacities and small bilateral pleural effusions. No pneumothorax is seen. The cardiomedia stinal silhouette is moderately enlarged. Calcifications are seen within the aortic arch. The osseo us structures demonstrate senescent changes. IMPRESSION: 1. Findings suggestive of pulmonary vascular congestion/interstitial edema with small bilateral pl eural effusions. Findings are increased when compared to the prior examination. 2. Moderate cardiomegaly and aortic atherosclerosis. 3. Tubes and lines, as described above. RPTAT: .Sharron Wang MD, MD Date Time Electronically viewed and signed by .Sharron Wang MD, on 06/24/2016 06:44 .G/
[2016-06-24 06:58] LABS: INR 1.73; PROTIME 20.4 Sec (12.2-14.2); PT RATIO 1.6
[2016-06-24 07:00] LABS: PARTIAL THROMBOPLASTIN TIME 39.4 Sec (25.0-35.0)
[2016-06-24 07:06] LABS: CALCIUM 7.6 mg/dl (8.4-10.2); MAGNESIUM 1.7 mg/dl (1.7-2.5); POTASSIUM 3.2 mmol/L (3.5-5.1)
[2016-06-24 07:23] LABS: TROPONIN-I 1.28 ng/ml (0.00-0.12)
[2016-06-24] MEDS ORDERED: VANCOMYCIN 1 GM (PMX) 250 ML IVPB SCH (07:30)
--- NOTE | 2016-06-24 07:35 | HP ---
DATE OF ADMISSION: 06/23/2016 HISTORY OF PRESENT ILLNESS: This is the first [facility] admission for this 85-ye ar-old right-handed, male. He has a prior history of heart disease and had been a t home. Apparently last night, he was having difficulty getting to the bathroom. He had tried to g et up and his assisted him, but then he slumped down to the floor without loss of consciousness . The is a little bit hazy on the details, but ultimately the patient's son called and subsequ ently 911 was summoned. He was unresponsive and ultimately required resuscitative efforts, as kev eated in the emergency room doctor's notes. He had successful resuscitation and they placed him on hypothermia protocol. At this time, he is unable to give me any type of meaningful history due to b eing intubated and on hypothermia protocol with sedation. PAST MEDICAL HISTORY: 1. Diabetes mellitus type 2. 2. Organic heart disease -- coronary artery disease -- status post RCA stenting 02/21/1998 -- moder ate to severe pulmonary hypertension diagnosed in 11/2015. 3. Moderate MR, mild AI, moderate TR. 4. Dyslipidemia. 5. Hypertension. 6. Tobacco abuse history, 55 pack years. 7. History of Basilio palsy. 8. Benign tremor, left hand. 9. Gastroesophageal reflux disease. 10. Usual childhood diseases. 11. History of varicella with recurrent shingles on the right lower abdomen. 12. Macular degeneration. 13. Status post CE and IOL, left eye. 14. Status post T and A. ALLERGIES: HE HAS NO KNOWN MEDICAL ALLERGIES. MEDICATIONS: 1. Preservation b.i.d. 2. Multaq 400 mg b.i.d. 3. Lisinopril 5 mg daily. 4. Simvastatin 20 mg a day. 5. Etodolac 400 mg once a day. 6. Iron 325 q. days. 7. Omeprazole 40 mg a day. 8. Potassium 10 mEq daily. 9. Furosemide 40 mg daily. 10. Fenofib DICTATION ENDS HERE Dictated By: RAJAT CASTRO MD, JR/DEVON Conf#: [id number] DID#: [id number]
[2016-06-24] MEDS: LACTATED RINGER'S 1,000 ML IV SCH ×2 (07:50→21:38)
[2016-06-24] MEDS: MIDAZOLAM (DRIP) 50 mg/50 mL 50 ML IV SCH ×2 (09:15→20:50)
[2016-06-24 09:33] LABS: LYMPHOCYTES # 0.4 10^3/ul (0.8-2.9); MONOCYTE # 0.2 10^3/ul (0.3-0.9); NEUTROPHIL # 7.6 10^3/ul (1.6-7.5)
--- NOTE | 2016-06-24 10:12 | PN ---
Date/Time of Note Date/Time of Note DATE: 06/24/16 TIME: 10:08 Assessment/Plan VTE Prophylaxis VTE Prophylaxis Intervention: other Lines/Catheters [facility] Central Line Central line still needed: Yes Urinary Cath still in place: Yes Reason Cath still needed: urinary retention (Acute renal insufficiency and hypothermia protocol) Assessment/Plan Problems: (1) Gram positive septicemia Status: Acute Comment: He is on antibiotic therapy. Will fine-tune the antibiotics based upon final cultures. There is no evidence of dental source cardiac source or pulmonary source or skin source at this time (2) Gram-positive septic shock Status: Acute Comment: Shock has improved and he is off of pressors. He remains on hypothermia protocol after the rest see below (3) Acute on chronic renal insufficiency Status: Acute Comment: According to his private physician he did have some modest degree of renal insufficiency pre-event. His creatinine is risen 2.0. He is on hypothermia protocol will observe him and hope for the best (4) Hypothermia, induced Status: Acute Comment: He will be coming off the hypothermia protocol later today with the guidance of the pulmonary jewelry consultant exhibit specialist. We will have to hope for the best to see where he finishes. He will go on to PPI for GI prophylaxis Qualifiers: Encounter type: initial encounter Qualified Code: T68.XXXA - Hypothermia, induced, initial encounter (5) Diabetes mellitus type 2 in nonobese Status: Chronic Comment: Well-controlled (6) Essential hypertension Status: Chronic Comment: Not an issue at this moment (7) Cardiac arrest Status: Acute Comment: We will have to see how he recovers from in terms of brain function after the hypothermia protocol is discontinued (8) Lactic acidosis Status: Resolved Subjective 24 Hr Interval Summary Subjective hx not possible: pt non-verbal, pt critical status, other Exam/Review of Systems Vital Signs Vitals Vital Signs Date Time Temp Pulse Resp B/P Pulse Ox O2 Delivery O2 Flow Rate FiO2 06/24/16 09:15 63 14 154/96 91 06/24/16 09:00 92.5 Mechanical Ventilator 06/24/16 08:00 40 Intake and Output 06/23/16 06/23/16 06/24/16 15:00 23:00 07:00 Intake Total 978.74 ml 739 ml Output Total 88 ml 68 ml Balance 890.74 ml 671 ml Exam Constitutional: non-verbal (Nonresponsive although sedated and on hypothermia protocol) Eyes: nl conjunctiva, other (Pinpoint pupils nonresponsive no blink reflex) Neck: non-tender, supple Respiratory: clear to auscultation, normal air movement Cardiovascular: nl pulses, regular rate and rhythm Gastrointestinal: bowel sounds (Absent bowel sounds) Extremities: other (Cool without mottling) Results Result Diagram: 06/24/16 0605 06/24/16 0605 Results 24 hrs Laboratory Tests Test 06/23/16 11:47 06/23/16 11:50 06/23/16 12:40 06/23/16 13:40 Blood Gas Specimen Source Blood arterial Arterial Blood Date Drawn 06/23/2016 1:36:31 PM Arterial Blood pH (Temp corrected) 7.411 Arterial Blood pCO2 (Temp correct) 30.8 L Arterial Blood pO2 (Temp corrected) 447.5 H Arterial Blood HCO3 19.1 L Arterial Blood Base Excess -4.8 L Arterial Blood Oxygen Saturation 99.2 Dexter Test ACCEPTAB Arterial Blood Gas Puncture Site Right Radial Arterial Blood Carboxyhemoglobin 0.3 Arterial Blood Methemoglobin 0.6 Blood Gas A-a O2 Differential 234.7 H Oxyhemoglobin Percent 98.3 Total Hemoglobin 8.7 L Blood Gas Temperature 37.0 Blood Gas Respiration Rate 16.0 Blood Gas Actual Respiration Rate 17 Blood Gas Modality VENT - AC FiO2 100.0 Blood Gas Tidal Volume 550.0 Blood Gas Low PEEP Setting 5.0 Blood Gas Notified Whom JLD Blood Gas Notified Time 06/23/2016 1:45:25 PM White Blood Count 6.4 Red Blood Count 3.26 L Hemoglobin 10.0 L Hematocrit 31.7 L Mean Corpuscular Volume 97.2 Mean Corpuscular Hemoglobin 30.7 Mean Corpuscular Hemoglobin Concent 31.5 L Red Cell Distribution Width 18.1 H Platelet Count 182 Mean Platelet Volume 11.4 H Neutrophils % 55.0 Band Neutrophils % 25.0 H Lymphocytes % 17.0 Monocytes % 3.0 Eosinophils % Basophils % Nucleated Red Blood Cells % Neutrophils # 3.5 Lymphocytes # 1.1 Monocytes # 0.2 L Eosinophils # Basophils # Nucleated Red Blood Cells # Prothrombin Time 20.9 H Prothrombin Time Ratio 1.6 INR International Normalized Ratio 1.78 Activated Partial Thromboplast Time 49.9 H Sodium Level 143 Potassium Level 3.5 Chloride Level 102 Carbon Dioxide Level 19 L Anion Gap 26 H Blood Urea Nitrogen 36 H Creatinine 1.89 H Glucose Level 174 Lactic Acid Level 10.8 *H 7.1 *H Calcium Level 8.5 Total Bilirubin 0.1 L Direct Bilirubin 0.00 Indirect Bilirubin 0.1 Aspartate Amino Transf (AST/SGOT) 389 H Alanine Aminotransferase (ALT/SGPT) 178 H Alkaline Phosphatase 67 Creatine Kinase 1171 H Troponin I 0.331 *H Total Protein 6.3 Albumin 3.5 Globulin 2.80 Albumin/Globulin Ratio 1.25 Urine Color LT. YELLOW Urine Clarity CLEAR Urine pH 5.0 Urine Specific [place] 1.020 Urine Ketones NEGATIVE Urine Nitrite NEGATIVE Urine Bilirubin 1+ H Urine Ictotest NEGATIVE Urine Urobilinogen 0.2 E.U./dL Urine Leukocyte Esterase NEGATIVE Urine Microscopic RBC 0-2 Urine Microscopic WBC 0-2 Urine Squamous Epithelial Cells FEW Urine Hyaline Casts RARE Urine Hemoglobin 1+ H Urine Glucose NEGATIVE Urine Total Protein 1+ H Test 06/23/16 13:43 06/23/16 16:40 06/23/16 17:00 06/23/16 18:50 Bedside Glucose 127 74 Lactic Acid Level 2.0 White Blood Count 9.1 # Red Blood Count 3.17 L Hemoglobin 9.8 L Hematocrit 29.5 L Mean Corpuscular Volume 93.1 Mean Corpuscular Hemoglobin 30.9 Mean Corpuscular Hemoglobin Concent 33.2 Red Cell Distribution Width 18.1 H Platelet Count 129 #L Mean Platelet Volume 11.1 H Neutrophils % 73.0 Band Neutrophils % 7.0 H Lymphocytes % 14.0 L Monocytes % 6.0 Eosinophils % Neutrophils # 6.6 Lymphocytes # 1.3 Monocytes # 0.5 Eosinophils # Platelet Estimate PLT APPEAR ADEQUATE Hypochromasia 1+ Poikilocytosis 1+ Anisocytosis 1+ Microcytosis 1+ Macrocytosis 1+ Ovalocytes 1+ Helmet Cells 1+ Potassium Level 2.2 *L Test 06/23/16 18:59 06/23/16 20:18 06/23/16 21:12 06/23/16 21:50 Bedside Glucose 101 92 101 125 Test 06/23/16 21:52 06/23/16 23:17 06/24/16 00:27 06/24/16 00:29 Blood Gas Specimen Source Blood arterial Arterial Blood Date Drawn 06/23/2016 9:53:54 PM Arterial Blood pH (Temp corrected) 7.467 H Arterial Blood pCO2 (Temp correct) 24.8 L Arterial Blood pO2 (Temp corrected) 356.7 H Arterial Blood HCO3 18.3 L Arterial Blood Base Excess -5.3 L Arterial Blood Oxygen Saturation 99.3 Dexter Test ACCEPTAB Arterial Blood Gas Puncture Site Right Radial Arterial Blood Carboxyhemoglobin 0.3 Arterial Blood Methemoglobin 0.1 Blood Gas A-a O2 Differential 195.1 H Oxyhemoglobin Percent 98.9 Total Hemoglobin 11.5 L Blood Gas Temperature 33.0 Blood Gas Respiration Rate 16.0 Blood Gas Actual Respiration Rate 16 Blood Gas Modality VENT - AC FiO2 80.0 Blood Gas Tidal Volume 550.0 Blood Gas Low PEEP Setting 5.0 Blood Gas Notified Whom BR Blood Gas Notified Time 06/23/2016 10:00:25 PM Bedside Glucose 92 119 White Blood Count 11.7 #H Red Blood Count 3.15 L Hemoglobin 9.8 L Hematocrit 29.0 L Mean Corpuscular Volume 92.1 Mean Corpuscular Hemoglobin 31.1 Mean Corpuscular Hemoglobin Concent 33.8 Red Cell Distribution Width 18.0 H Platelet Count 126 L Mean Platelet Volume 11.3 H Neutrophils % 92.7 H Lymphocytes % 2.5 L Monocytes % 3.5 Eosinophils % 0.0 Basophils % 0.2 Nucleated Red Blood Cells % 0.0 Neutrophils # 10.8 H Lymphocytes # 0.3 L Monocytes # 0.4 Eosinophils # 0.0 Basophils # 0.0 Nucleated Red Blood Cells # 0.0 Prothrombin Time 20.6 H Prothrombin Time Ratio 1.6 INR International Normalized Ratio 1.75 Activated Partial Thromboplast Time 40.2 H Fibrinogen 386.0 Sodium Level 141 Potassium Level 3.3 L Chloride Level 109 Carbon Dioxide Level 22 Anion Gap 13 # Blood Urea Nitrogen 45 H Creatinine 1.97 H Glucose Level 123 # Calcium Level 7.6 L Phosphorus Level 3.4 Magnesium Level 1.7 Troponin I 1.370 *H Amylase Level 35 Lipase 43 Test 06/24/16 01:13 06/24/16 02:08 06/24/16 03:09 06/24/16 03:51 Bedside Glucose 85 93 98 107 Test 06/24/16 03:52 06/24/16 05:20 06/24/16 06:05 06/24/16 06:07 Blood Gas Specimen Source Blood arterial Arterial Blood Date Drawn 06/24/2016 4:07:01 AM Arterial Blood pH (Temp corrected) 7.464 H Arterial Blood pCO2 (Temp correct) 25.5 L Arterial Blood pO2 (Temp corrected) 249.2 H Arterial Blood HCO3 18.6 L Arterial Blood Base Excess -4.9 L Arterial Blood Oxygen Saturation 99.2 Dxeter Test ACCEPTAB Arterial Blood Gas Puncture Site Right Radial Arterial Blood Carboxyhemoglobin 0.2 Arterial Blood Methemoglobin 0.4 Blood Gas A-a O2 Differential 155.6 H Oxyhemoglobin Percent 98.6 Total Hemoglobin 12.4 Blood Gas Temperature 33.4 Blood Gas Respiration Rate 14.0 Blood Gas Actual Respiration Rate 14 Blood Gas Modality VENT - AC FiO2 60.0 Blood Gas Tidal Volume 550.0 Blood Gas Low PEEP Setting 5.0 Blood Gas Inspiratory Pressure 24.0 Blood Gas Notified Whom BR Blood Gas Notified Time 06/24/2016 4:15:36 AM Bedside Glucose 93 105 White Blood Count 9.9 Red Blood Count 3.22 L Hemoglobin 9.7 L Hematocrit 29.4 L Mean Corpuscular Volume 91.3 Mean Corpuscular Hemoglobin 30.1 Mean Corpuscular Hemoglobin Concent 33.0 Red Cell Distribution Width 18.1 H Platelet Count 113 L Mean Platelet Volume 11.5 H Neutrophils % 77.0 Band Neutrophils % 17.0 H Lymphocytes % 4.0 L Monocytes % 2.0 Eosinophils % Basophils % Nucleated Red Blood Cells % Neutrophils # 7.6 H Lymphocytes # 0.4 L Monocytes # 0.2 L Eosinophils # Basophils # Nucleated Red Blood Cells # Differential Comment MANUAL DIFF Prothrombin Time 20.4 H Prothrombin Time Ratio 1.6 INR International Normalized Ratio 1.73 Activated Partial Thromboplast Time 39.4 H Fibrinogen 453.0 # Sodium Level 141 Potassium Level 3.2 L Chloride Level 111 H Carbon Dioxide Level 21 Anion Gap 12 Blood Urea Nitrogen 47 H Creatinine 2.00 H Glucose Level 104 Lactic Acid Level 1.6 Calcium Level 7.6 L Phosphorus Level 4.0 Magnesium Level 1.7 Troponin I 1.280 *H Amylase Level 37 Lipase 37 Test 06/24/16 07:23 06/24/16 08:08 06/24/16 09:11 Bedside Glucose 85 106 100 Medications Medications Current Medications Norepinephrine 250 ml @ 1.875 mls/ hr TITRATE IV Last administered on t 15:37; Admin Dose 18.75 MLS/HR; Start 06/23/16 at 12:00 Vecuronium [place]/Dextrose (Norcuron/D5W) 100 ml @ 4.36 mls/hr [id number] IV Last administered on 06/23/16 19:00; Admin Dose 3.63 MLS/HR; Start 06/23/16 at 15:52 Acetaminophen (Tylenol Supp) 650 mg Q4H PRN [place] TEMP > 37C; Start 06/23/16 at 16 :00 Acetaminophen (Tylenol Liquid) 650 mg Q4H PRN PO TEMP > 37C; Start 06/23/16 at 16:00 Acetaminophen (Tylenol Supp) 500 mg Q6H PA ; Start 06/24/16 at 16:00 Acetaminophen (Tylenol Liquid) 500 mg Q6H PO ; Start 06/24/16 at 16:00 Meperidine HCl (Demerol) 12.5 mg Q4H PRN IV POST OPERATIVE SHIVERING; Start at 16:00 Meperidine HCl (Demerol) 25 mg Q4H PRN IV POST OPERATIVE SHIVERING; Start 06/23 at 16:00 Eye Lubricant (Akwa Oint) 1 applic Q6 BOTH EYES Last administered on 06/24/16 06:26; Admin Dose 1 APPLIC; Start 06/23/16 at 18:00 Eye Lubricant (Artificial Tears Oph) 2 drop Q6 BOTH EYES Last administered on 06:25; Admin Dose 2 DROP; Start 06/23/16 at 18:00 Diagnostic Test (Pha) (Accu-Chek) 1 ea Q1H XX Last administered on 06/24/16 09 :14; Admin Dose 1 EA; Start 06/23/16 at 16:00 Dextrose (D50w Syringe) 25 ml Q15M PRN IV Till BS 80 mg/dL or above x2; Start 06/23/16 at 16:00 Dextrose 50 ml 50 ml Q15M PRN IV Till BS 80 mg/dL or above x2; Start 06/23/16 at 16:00 Piperacillin Sod/ Tazobactam Sod 100 ml @ 200 mls/hr Q8 IVPB Last administered on 06/24/16 06:25; Admin Dose 200 MLS/HR; Start 06/23/16 at 16:00 Lactated Ringer's 1,000 ml @ 75 mls/hr [id number] IV Last administered on 07:50; Admin Dose 75 MLS/HR; Start 06/23/16 at 18:00 Midazolam HCl (Versed) 50 ml @ 1 mls/hr TITRATE IV Last administered on 09:15; Admin Dose 5 MLS/HR; Start 06/23/16 at 23:00 Pantoprazole (Protonix Iv) 40 mg DAILY@06 IV ; Start 06/25/16 at 06:00 RAJAT CASTRO MD Jun 24, 2016 10:12
[2016-06-24 10:30] LABS: AADO2 Arterial 135.9 mmHg (7.0-24.0); Allen Test ACCEPTAB; Arterial Base Excess -5.8 mmol/L (-3.0-3); Arterial COHb 0.2 % (0.0-3.0); Arterial Fraction of Oxyhgb 97.9 % (93.0-99.0); Arterial HCO3 17.5 mmol/L (22.0-26.0); Arterial MetHb 0.2 % (0.0-1.5); Arterial Total Hemglobin 10.5 g/dl (12.0-18.0); MODE VENT - AC
--- NOTE | 2016-06-24 10:35 | CONS ---
Date/Time of Note Date/Time of Note DATE: 06/24/16 TIME: 10:33 Consult Date/Type/Reason Admit Date/Time Jun 23, 2016 at 14:02 Initial Consult Date Type of Consultation: pulmonary ICU Subjective Patient remains intubated sedated on mechanical ventilation Continues hypothermia protocol with paralysis Objective Vital Signs Date Time Temp Pulse Resp B/P Pulse Ox O2 Delivery O2 Flow Rate FiO2 06/24/16 09:15 63 14 154/96 91 06/24/16 09:00 92.5 Mechanical Ventilator 06/24/16 08:00 40 Intake and Output 06/23/16 06/23/16 06/24/16 15:00 23:00 07:00 Intake Total 978.74 ml 739 ml Output Total 88 ml 68 ml Balance 890.74 ml 671 ml Exam PHYSICAL EXAMINATION: GENERAL: Elderly-appearing gentleman, intubated on mechanical ventilation, appears comfortable at rest, no acute distress. VITAL SIGNS: As above NECK: Supple. No JVD or lymphadenopathy. CARDIAC: S1, S2, no added sounds or murmurs. CHEST: Diminished air entry bilaterally. ABDOMEN: Soft, nontender. No guarding or rebound. EXTREMITIES: No cyanosis, clubbing, 1+ edema. NEUROLOGIC: Unable to assess. Results/Medications Result Diagram: 06/24/16 0605 06/24/16 06 Results 24 hrs Laboratory Tests Test 06/23/16 11:47 06/23/16 11:50 06/23/16 12:40 06/23/16 13:40 Blood Gas Specimen Source Blood arterial Arterial Blood Date Drawn 06/23/2016 1:36:31 PM Arterial Blood pH (Temp corrected) 7.411 Arterial Blood pCO2 (Temp correct) 30.8 L Arterial Blood pO2 (Temp corrected) 447.5 H Arterial Blood HCO3 19.1 L Arterial Blood Base Excess -4.8 L Arterial Blood Oxygen Saturation 99.2 Dexter Test ACCEPTAB Arterial Blood Gas Puncture Site Right Radial Arterial Blood Carboxyhemoglobin 0.3 Arterial Blood Methemoglobin 0.6 Blood Gas A-a O2 Differential 234.7 H Oxyhemoglobin Percent 98.3 Total Hemoglobin 8.7 L Blood Gas Temperature 37.0 Blood Gas Respiration Rate 16.0 Blood Gas Actual Respiration Rate 17 Blood Gas Modality VENT - AC FiO2 100.0 Blood Gas Tidal Volume 550.0 Blood Gas Low PEEP Setting 5.0 Blood Gas Notified Whom JLD Blood Gas Notified Time 06/23/2016 1:45:25 PM White Blood Count 6.4 Red Blood Count 3.26 L Hemoglobin 10.0 L Hematocrit 31.7 L Mean Corpuscular Volume 97.2 Mean Corpuscular Hemoglobin 30.7 Mean Corpuscular Hemoglobin Concent 31.5 L Red Cell Distribution Width 18.1 H Platelet Count 182 Mean Platelet Volume 11.4 H Neutrophils % 55.0 Band Neutrophils % 25.0 H Lymphocytes % 17.0 Monocytes % 3.0 Eosinophils % Basophils % Nucleated Red Blood Cells % Neutrophils # 3.5 Lymphocytes # 1.1 Monocytes # 0.2 L Eosinophils # Basophils # Nucleated Red Blood Cells # Prothrombin Time 20.9 H Prothrombin Time Ratio 1.6 INR International Normalized Ratio 1.78 Activated Partial Thromboplast Time 49.9 H Sodium Level 143 Potassium Level 3.5 Chloride Level 102 Carbon Dioxide Level 19 L Anion Gap 26 H Blood Urea Nitrogen 36 H Creatinine 1.89 H Glucose Level 174 Lactic Acid Level 10.8 *H 7.1 *H Calcium Level 8.5 Total Bilirubin 0.1 L Direct Bilirubin 0.00 Indirect Bilirubin 0.1 Aspartate Amino Transf (AST/SGOT) 389 H Alanine Aminotransferase (ALT/SGPT) 178 H Alkaline Phosphatase 67 Creatine Kinase 1171 H Troponin I 0.331 *H Total Protein 6.3 Albumin 3.5 Globulin 2.80 Albumin/Globulin Ratio 1.25 Urine Color LT. YELLOW Urine Clarity CLEAR Urine pH 5.0 Urine Specific [place] 1.020 Urine Ketones NEGATIVE Urine Nitrite NEGATIVE Urine Bilirubin 1+ H Urine Ictotest NEGATIVE Urine Urobilinogen 0.2 E.U./dL Urine Leukocyte Esterase NEGATIVE Urine Microscopic RBC 0-2 Urine Microscopic WBC 0-2 Urine Squamous Epithelial Cells FEW Urine Hyaline Casts RARE Urine Hemoglobin 1+ H Urine Glucose NEGATIVE Urine Total Protein 1+ H Test 06/23/16 13:43 06/23/16 16:40 06/23/16 17:00 06/23/16 18:50 Bedside Glucose 127 74 Lactic Acid Level 2.0 White Blood Count 9.1 # Red Blood Count 3.17 L Hemoglobin 9.8 L Hematocrit 29.5 L Mean Corpuscular Volume 93.1 Mean Corpuscular Hemoglobin 30.9 Mean Corpuscular Hemoglobin Concent 33.2 Red Cell Distribution Width 18.1 H Platelet Count 129 #L Mean Platelet Volume 11.1 H Neutrophils % 73.0 Band Neutrophils % 7.0 H Lymphocytes % 14.0 L Monocytes % 6.0 Eosinophils % Neutrophils # 6.6 Lymphocytes # 1.3 Monocytes # 0.5 Eosinophils # Platelet Estimate PLT APPEAR ADEQUATE Hypochromasia 1+ Poikilocytosis 1+ Anisocytosis 1+ Microcytosis 1+ Macrocytosis 1+ Ovalocytes 1+ Helmet Cells 1+ Potassium Level 2.2 *L Test 06/23/16 18:59 06/23/16 20:18 06/23/16 21:12 06/23/16 21:50 Bedside Glucose 101 92 101 125 Test 06/23/16 21:52 06/23/16 23:17 06/24/16 00:27 06/24/16 00:29 Blood Gas Specimen Source Blood arterial Arterial Blood Date Drawn 06/23/2016 9:53:54 PM Arterial Blood pH (Temp corrected) 7.467 H Arterial Blood pCO2 (Temp correct) 24.8 L Arterial Blood pO2 (Temp corrected) 356.7 H Arterial Blood HCO3 18.3 L Arterial Blood Base Excess -5.3 L Arterial Blood Oxygen Saturation 99.3 Dexter Test ACCEPTAB Arterial Blood Gas Puncture Site Right Radial Arterial Blood Carboxyhemoglobin 0.3 Arterial Blood Methemoglobin 0.1 Blood Gas A-a O2 Differential 195.1 H Oxyhemoglobin Percent 98.9 Total Hemoglobin 11.5 L Blood Gas Temperature 33.0 Blood Gas Respiration Rate 16.0 Blood Gas Actual Respiration Rate 16 Blood Gas Modality VENT - AC FiO2 80.0 Blood Gas Tidal Volume 550.0 Blood Gas Low PEEP Setting 5.0 Blood Gas Notified Whom BR Blood Gas Notified Time 06/23/2016 10:00:25 PM Bedside Glucose 92 119 White Blood Count 11.7 #H Red Blood Count 3.15 L Hemoglobin 9.8 L Hematocrit 29.0 L Mean Corpuscular Volume 92.1 Mean Corpuscular Hemoglobin 31.1 Mean Corpuscular Hemoglobin Concent 33.8 Red Cell Distribution Width 18.0 H Platelet Count 126 L Mean Platelet Volume 11.3 H Neutrophils % 92.7 H Lymphocytes % 2.5 L Monocytes % 3.5 Eosinophils % 0.0 Basophils % 0.2 Nucleated Red Blood Cells % 0.0 Neutrophils # 10.8 H Lymphocytes # 0.3 L Monocytes # 0.4 Eosinophils # 0.0 Basophils # 0.0 Nucleated Red Blood Cells # 0.0 Prothrombin Time 20.6 H Prothrombin Time Ratio 1.6 INR International Normalized Ratio 1.75 Activated Partial Thromboplast Time 40.2 H Fibrinogen 386.0 Sodium Level 141 Potassium Level 3.3 L Chloride Level 109 Carbon Dioxide Level 22 Anion Gap 13 # Blood Urea Nitrogen 45 H Creatinine 1.97 H Glucose Level 123 # Calcium Level 7.6 L Phosphorus Level 3.4 Magnesium Level 1.7 Troponin I 1.370 *H Amylase Level 35 Lipase 43 Test 06/24/16 01:13 06/24/16 02:08 06/24/16 03:09 06/24/16 03:51 Bedside Glucose 85 93 98 107 Test 06/24/16 03:52 06/24/16 05:20 06/24/16 06:05 06/24/16 06:07 Blood Gas Specimen Source Blood arterial Arterial Blood Date Drawn 06/24/2016 4:07:01 AM Arterial Blood pH (Temp corrected) 7.464 H Arterial Blood pCO2 (Temp correct) 25.5 L Arterial Blood pO2 (Temp corrected) 249.2 H Arterial Blood HCO3 18.6 L Arterial Blood Base Excess -4.9 L Arterial Blood Oxygen Saturation 99.2 Dexter Test ACCEPTAB Arterial Blood Gas Puncture Site Right Radial Arterial Blood Carboxyhemoglobin 0.2 Arterial Blood Methemoglobin 0.4 Blood Gas A-a O2 Differential 155.6 H Oxyhemoglobin Percent 98.6 Total Hemoglobin 12.4 Blood Gas Temperature 33.4 Blood Gas Respiration Rate 14.0 Blood Gas Actual Respiration Rate 14 Blood Gas Modality VENT - AC FiO2 60.0 Blood Gas Tidal Volume 550.0 Blood Gas Low PEEP Setting 5.0 Blood Gas Inspiratory Pressure 24.0 Blood Gas Notified Whom BR Blood Gas Notified Time 06/24/2016 4:15:36 AM Bedside Glucose 93 105 White Blood Count 9.9 Red Blood Count 3.22 L Hemoglobin 9.7 L Hematocrit 29.4 L Mean Corpuscular Volume 91.3 Mean Corpuscular Hemoglobin 30.1 Mean Corpuscular Hemoglobin Concent 33.0 Red Cell Distribution Width 18.1 H Platelet Count 113 L Mean Platelet Volume 11.5 H Neutrophils % 77.0 Band Neutrophils % 17.0 H Lymphocytes % 4.0 L Monocytes % 2.0 Eosinophils % Basophils % Nucleated Red Blood Cells % Neutrophils # 7.6 H Lymphocytes # 0.4 L Monocytes # 0.2 L Eosinophils # Basophils # Nucleated Red Blood Cells # Differential Comment MANUAL DIFF Prothrombin Time 20.4 H Prothrombin Time Ratio 1.6 INR International Normalized Ratio 1.73 Activated Partial Thromboplast Time 39.4 H Fibrinogen 453.0 # Sodium Level 141 Potassium Level 3.2 L Chloride Level 111 H Carbon Dioxide Level 21 Anion Gap 12 Blood Urea Nitrogen 47 H Creatinine 2.00 H Glucose Level 104 Lactic Acid Level 1.6 Calcium Level 7.6 L Phosphorus Level 4.0 Magnesium Level 1.7 Troponin I 1.280 *H Amylase Level 37 Lipase 37 Test 06/24/16 07:23 06/24/16 08:08 06/24/16 09:11 06/24/16 09:52 Bedside Glucose 85 106 100 Blood Gas Specimen Source Blood arterial Arterial Blood Date Drawn 06/24/2016 10:15:44 AM Arterial Blood pH (Temp corrected) 7.485 H Arterial Blood pCO2 (Temp correct) 22.9 L Arterial Blood pO2 (Temp corrected) 127.0 H Arterial Blood HCO3 17.5 L Arterial Blood Base Excess -5.8 L Arterial Blood Oxygen Saturation 98.3 Dexter Test ACCEPTAB Arterial Blood Gas Puncture Site Right Radial Arterial Blood Carboxyhemoglobin 0.2 Arterial Blood Methemoglobin 0.2 Blood Gas A-a O2 Differential 135.9 H Oxyhemoglobin Percent 97.9 Total Hemoglobin 10.5 L Blood Gas Temperature 32.7 Blood Gas Respiration Rate 14.0 Blood Gas Actual Respiration Rate 14 Blood Gas Modality VENT - AC FiO2 40.0 Blood Gas Tidal Volume 550.0 Blood Gas Low PEEP Setting 5.0 Blood Gas Notified Whom JLD Blood Gas Notified Time 06/24/2016 10:30:37 AM Test 06/24/16 10:12 Bedside Glucose 94 Medications Current Medications Norepinephrine 250 ml @ 1.875 mls/ hr TITRATE IV Last administered on 15:37; Admin Dose 18.75 MLS/HR; Start 06/23/16 at 12:00 Vecuronium [place]/Dextrose (Norcuron/D5W) 100 ml @ 4.36 mls/hr [id number] IV Last administered on 06/23/16 19:00; Admin Dose 3.63 MLS/HR; Start 06/23/16 at 15:52 Acetaminophen (Tylenol Supp) 650 mg Q4H PRN [place] TEMP > 37C; Start 06/23/16 at 16 :00 Acetaminophen (Tylenol Liquid) 650 mg Q4H PRN PO TEMP > 37C; Start 06/23/16 at 16:00 Acetaminophen (Tylenol Supp) 500 mg Q6H [place] ; Start 06/24/16 at 16:00 Acetaminophen (Tylenol Liquid) 500 mg Q6H PO ; Start 06/24/16 at 16:00 Meperidine HCl (Demerol) 12.5 mg Q4H PRN IV POST OPERATIVE SHIVERING; Start at 16:00 Meperidine HCl (Demerol) 25 mg Q4H PRN IV POST OPERATIVE SHIVERING; Start 06/23 at 16:00 Eye Lubricant (Akwa Oint) 1 applic Q6 BOTH EYES Last administered on 06/24/16 06:26; Admin Dose 1 APPLIC; Start 06/23/16 at 18:00 Eye Lubricant (Artificial Tears Oph) 2 drop Q6 BOTH EYES Last administered on 06:25; Admin Dose 2 DROP; Start 06/23/16 at 18:00 Diagnostic Test (Pha) (Accu-Chek) 1 ea Q1H XX Last administered on 06/24/16 09 :14; Admin Dose 1 EA; Start 06/23/16 at 16:00 Dextrose (D50w Syringe) 25 ml Q15M PRN IV Till BS 80 mg/dL or above x2; Start 06/23/16 at 16:00 Dextrose 50 ml 50 ml Q15M PRN IV Till BS 80 mg/dL or above x2; Start 06/23/16 at 16:00 Piperacillin Sod/ Tazobactam Sod 100 ml @ 200 mls/hr Q8 IVPB Last administered on 06/24/16 06:25; Admin Dose 200 MLS/HR; Start 06/23/16 at 16:00 Lactated Ringer's 1,000 ml @ 75 mls/hr [id number] IV Last administered on 07:50; Admin Dose 75 MLS/HR; Start 06/23/16 at 18:00 Midazolam HCl (Versed) 50 ml @ 1 mls/hr TITRATE IV Last administered on 09:15; Admin Dose 5 MLS/HR; Start 06/23/16 at 23:00 Pantoprazole (Protonix Iv) 40 mg DAILY@06 IV ; Start 06/25/16 at 06:00 Assessment/Plan Chief Complaint/Hosp Course IMPRESSION 1. Cardiopulmonary arrest. With spontaneous return of circulation now on hypothermia protocol 2. Possible anoxic brain injury 3. Evidence of early rhabdomyolysis with renal insufficiency. Improving 4. Possible aspiration pneumonia PLAN: 1. Continue mechanical ventilation. 2. Hypothermia protocol. 3. Antibiotics for possible aspiration pneumonia. 4. Continue volume resuscitation 5. DVT and GI prophylaxis. 6. Neurology evaluation once off sedation and paralytics Disposition Continue ICU care Problems: SHAHNAZ HAIRSTON MD, [facility] Jun 24, 2016 10:35
[2016-06-24] MEDS: VECURONIUM 100 MG in DEXTROSE 5% 100 ML IV SCH (11:15)
[2016-06-24 12:17] LABS: ADD SCAN DIFF NO
[2016-06-24 12:28] LABS: INR 1.87; PROTIME 21.7 Sec (12.2-14.2); PT RATIO 1.7
[2016-06-24 12:31] LABS: ANION GAP 12 (8-16); BLOOD UREA NITROGEN 47 mg/dl (7-20); CALCIUM 7.4 mg/dl (8.4-10.2); CARBON DIOXIDE 21 mmol/L (21-31); CHLORIDE 111 mmol/L (97-110); CREATININE 2.02 mg/dl (0.61-1.24); GLUCOSE 95 mg/dl (70-220); MAGNESIUM 1.6 mg/dl (1.7-2.5); PHOSPHORUS 4.5 mg/dl (2.5-4.9); POTASSIUM 3.2 mmol/L (3.5-5.1); SODIUM 141 mmol/L (135-144)
[2016-06-24 12:33] LABS: AMYLASE < 30 U/L (11-123)
[2016-06-24 12:34] LABS: PARTIAL THROMBOPLASTIN TIME 38.7 Sec (25.0-35.0)
[2016-06-24 13:42] LABS: ABNORMAL IP MESSAGE 1; HEMATOCRIT 28.3 % (42.0-52.0); HEMOGLOBIN 9.5 g/dl (14.0-18.0); MEAN CORPUSCULAR HEMOGLOBIN 30.6 pg (29.0-33.0); MEAN CORPUSCULAR HGB CONC 33.6 g/dl (32.0-37.0); MEAN CORPUSCULAR VOLUME 91.3 fl (82.0-101.0); MEAN PLATELET VOLUME 11.6 fl (7.4-10.4); PLATELET COUNT 116 10^3/UL (140-415); RED CELL DISTRIBUTION WIDTH 18.2 % (11.5-14.5); WHITE BLOOD COUNT 9.9 10^3/ul (4.8-10.8)
[2016-06-24 15:04] LABS: LYMPHOCYTES # 0.3 10^3/ul (0.8-2.9); MONOCYTE # 0.2 10^3/ul (0.3-0.9); NEUTROPHIL # 6.9 10^3/ul (1.6-7.5)
[2016-06-24] MEDS: ACETAMINOPHEN 650MG/20.3ML CUP PO SCH ×2 (16:00→21:41)
[2016-06-24] MEDS: ACETAMINOPHEN 650 MG SUPP PR SCH ×2 (16:13→21:44)
[2016-06-24 18:44] LABS: ADD SCAN DIFF NO
[2016-06-24 18:47] LABS: ABNORMAL IP MESSAGE 1; HEMATOCRIT 27.5 % (42.0-52.0); MEAN CORPUSCULAR HEMOGLOBIN 29.6 pg (29.0-33.0); MEAN CORPUSCULAR HGB CONC 32.7 g/dl (32.0-37.0); MEAN CORPUSCULAR VOLUME 90.5 fl (82.0-101.0); MEAN PLATELET VOLUME 11.8 fl (7.4-10.4); PLATELET COUNT 108 10^3/UL (140-415); RED BLOOD COUNT 3.04 10^6/ul (4.70-6.10); RED CELL DISTRIBUTION WIDTH 18.3 % (11.5-14.5); WHITE BLOOD COUNT 9.2 10^3/ul (4.8-10.8)
[2016-06-24 19:05] LABS: CALCIUM 7.3 mg/dl (8.4-10.2); CREATININE 2.06 mg/dl (0.61-1.24); MAGNESIUM 1.6 mg/dl (1.7-2.5); PHOSPHORUS 5.1 mg/dl (2.5-4.9); POTASSIUM 3.1 mmol/L (3.5-5.1)
[2016-06-24 19:06] LABS: INR 1.67; PROTIME 19.8 Sec (12.2-14.2); PT RATIO 1.5
[2016-06-24 19:07] LABS: PARTIAL THROMBOPLASTIN TIME 39.3 Sec (25.0-35.0)
[2016-06-24 19:16] LABS: TROPONIN-I 0.853 ng/ml (0.00-0.12)
[2016-06-24 21:21] LABS: LYMPHOCYTES # 0.3 10^3/ul (0.8-2.9); MONOCYTE # 0.5 10^3/ul (0.3-0.9); MYELOCYTES # 0.2; NEUTROPHIL # 6.8 10^3/ul (1.6-7.5)
[2016-06-24 21:23] LABS: BURR CELLS FEW; OVALOCYTES FEW; SPHEROCYTES FEW
[2016-06-24 21:24] LABS: PLATELET ESTIMATE PLT APPEAR DECREASED
[2016-06-24 22:19] LABS: AADO2 Arterial 104.8 mmHg (7.0-24.0); Arterial Base Excess -5.8 mmol/L (-3.0-3); Arterial COHb 0.3 % (0.0-3.0); Arterial Fraction of Oxyhgb 95.4 % (93.0-99.0); Arterial HCO3 18.2 mmol/L (22.0-26.0); Arterial MetHb 0.2 % (0.0-1.5); MODE VENT - AC
--- NOTE | 2016-06-24 23:00 | PN ---
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, Altaf Perdomo -s/p CPR/ACLS for about 10 minutes -presoor support as needed -check trops, echo, lytes -moniotr for arrythmias -echo ordered Subjective 24 Hr Interval Summary Free Text/Dictation The aptient with no cahagnge Exam/Review of Systems Vital Signs Vitals Vital Signs Date Time Temp Pulse Resp B/P Pulse Ox O2 Delivery O2 Flow Rate FiO2 06/24/16 22:30 77 14 96/57 99 Mechanical Ventilator 06/24/16 22:00 94.9 06/24/16 21:35 30 Intake and Output 06/23/16 06/23/16 06/24/16 15:00 23:00 07:00 Intake Total 978.74 ml 822.63 ml Output Total 88 ml 68 ml Balance 890.74 ml 754.63 ml Results Result Diagram: 06/24/166 06/24/16 181 Results 24 hrs Laboratory Tests Test 06/23/16 23:17 06/24/16 00:27 06/24/16 00:29 06/24/16 01:13 Bedside Glucose 92 119 85 White Blood Count 11.7 #H Red Blood Count 3.15 L Hemoglobin 9.8 L Hematocrit 29.0 L Mean Corpuscular Volume 92.1 Mean Corpuscular Hemoglobin 31.1 Mean Corpuscular Hemoglobin Concent 33.8 Red Cell Distribution Width 18.0 H Platelet Count 126 L Mean Platelet Volume 11.3 H Neutrophils % 92.7 H Lymphocytes % 2.5 L Monocytes % 3.5 Eosinophils % 0.0 Basophils % 0.2 Nucleated Red Blood Cells % 0.0 Neutrophils # 10.8 H Lymphocytes # 0.3 L Monocytes # 0.4 Eosinophils # 0.0 Basophils # 0.0 Nucleated Red Blood Cells # 0.0 Prothrombin Time 20.6 H Prothrombin Time Ratio 1.6 INR International Normalized Ratio 1.75 Activated Partial Thromboplast Time 40.2 H Fibrinogen 386.0 Sodium Level 141 Potassium Level 3.3 L Chloride Level 109 Carbon Dioxide Level 22 Anion Gap 13 # Blood Urea Nitrogen 45 H Creatinine 1.97 H Glucose Level 123 # Calcium Level 7.6 L Phosphorus Level 3.4 Magnesium Level 1.7 Troponin I 1.370 *H Amylase Level 35 Lipase 43 Test 06/24/16 02:08 06/24/16 03:09 06/24/16 03:51 06/24/16 03:52 Bedside Glucose 93 98 107 Blood Gas Specimen Source Blood arterial Arterial Blood Date Drawn 06/24/2016 4:07:01 AM Arterial Blood pH (Temp corrected) 7.464 H Arterial Blood pCO2 (Temp correct) 25.5 L Arterial Blood pO2 (Temp corrected) 249.2 H Arterial Blood HCO3 18.6 L Arterial Blood Base Excess -4.9 L Arterial Blood Oxygen Saturation 99.2 Dexter Test ACCEPTAB Arterial Blood Gas Puncture Site Right Radial Arterial Blood Carboxyhemoglobin 0.2 Arterial Blood Methemoglobin 0.4 Blood Gas A-a O2 Differential 155.6 H Oxyhemoglobin Percent 98.6 Total Hemoglobin 12.4 Blood Gas Temperature 33.4 Blood Gas Respiration Rate 14.0 Blood Gas Actual Respiration Rate 14 Blood Gas Modality VENT - AC FiO2 60.0 Blood Gas Tidal Volume 550.0 Blood Gas Low PEEP Setting 5.0 Blood Gas Inspiratory Pressure 24.0 Blood Gas Notified Whom BR Blood Gas Notified Time 06/24/2016 4:15:36 AM Test 06/24/16 05:20 06/24/16 06:05 06/24/16 06:07 06/24/16 07:23 Bedside Glucose 93 105 85 White Blood Count 9.9 Red Blood Count 3.22 L Hemoglobin 9.7 L Hematocrit 29.4 L Mean Corpuscular Volume 91.3 Mean Corpuscular Hemoglobin 30.1 Mean Corpuscular Hemoglobin Concent 33.0 Red Cell Distribution Width 18.1 H Platelet Count 113 L Mean Platelet Volume 11.5 H Neutrophils % 77.0 Band Neutrophils % 17.0 H Lymphocytes % 4.0 L Monocytes % 2.0 Eosinophils % Basophils % Nucleated Red Blood Cells % Neutrophils # 7.6 H Lymphocytes # 0.4 L Monocytes # 0.2 L Eosinophils # Basophils # Nucleated Red Blood Cells # Differential Comment MANUAL DIFF Prothrombin Time 20.4 H Prothrombin Time Ratio 1.6 INR International Normalized Ratio 1.73 Activated Partial Thromboplast Time 39.4 H Fibrinogen 453.0 # Sodium Level 141 Potassium Level 3.2 L Chloride Level 111 H Carbon Dioxide Level 21 Anion Gap 12 Blood Urea Nitrogen 47 H Creatinine 2.00 H Glucose Level 104 Lactic Acid Level 1.6 Calcium Level 7.6 L Phosphorus Level 4.0 Magnesium Level 1.7 Troponin I 1.280 *H Amylase Level 37 Lipase 37 Test 06/24/16 08:08 06/24/16 09:11 06/24/16 09:52 06/24/16 10:12 Bedside Glucose 106 100 94 Blood Gas Specimen Source Blood arterial Arterial Blood Date Drawn 06/24/2016 10:15:44 AM Arterial Blood pH (Temp corrected) 7.485 H Arterial Blood pCO2 (Temp correct) 22.9 L Arterial Blood pO2 (Temp corrected) 127.0 H Arterial Blood HCO3 17.5 L Arterial Blood Base Excess -5.8 L Arterial Blood Oxygen Saturation 98.3 Dexter Test ACCEPTAB Arterial Blood Gas Puncture Site Right Radial Arterial Blood Carboxyhemoglobin 0.2 Arterial Blood Methemoglobin 0.2 Blood Gas A-a O2 Differential 135.9 H Oxyhemoglobin Percent 97.9 Total Hemoglobin 10.5 L Blood Gas Temperature 32.7 Blood Gas Respiration Rate 14.0 Blood Gas Actual Respiration Rate 14 Blood Gas Modality VENT - AC FiO2 40.0 Blood Gas Tidal Volume 550.0 Blood Gas Low PEEP Setting 5.0 Blood Gas Notified Whom JLD Blood Gas Notified Time 06/24/2016 10:30:37 AM Test 06/24/16 11:12 06/24/16 12:01 06/24/16 12:24 06/24/16 13:11 Bedside Glucose 85 80 92 White Blood Count 9.9 Red Blood Count 3.10 L Hemoglobin 9.5 L Hematocrit 28.3 L Mean Corpuscular Volume 91.3 Mean Corpuscular Hemoglobin 30.6 Mean Corpuscular Hemoglobin Concent 33.6 Red Cell Distribution Width 18.2 H Platelet Count 116 L Mean Platelet Volume 11.6 H Neutrophils % 70.0 Band Neutrophils % 25.0 H Lymphocytes % 3.0 L Monocytes % 2.0 Eosinophils % Neutrophils # 6.9 Lymphocytes # 0.3 L Monocytes # 0.2 L Eosinophils # Prothrombin Time 21.7 H Prothrombin Time Ratio 1.7 INR International Normalized Ratio 1.87 Activated Partial Thromboplast Time 38.7 H Fibrinogen 442.0 Sodium Level 141 Potassium Level 3.2 L Chloride Level 111 H Carbon Dioxide Level 21 Anion Gap 12 Blood Urea Nitrogen 47 H Creatinine 2.02 H Glucose Level 95 Calcium Level 7.4 L Phosphorus Level 4.5 Magnesium Level 1.6 L Troponin I 1.050 *H Amylase Level < 30 Lipase 36 Test 06/24/16 14:14 06/24/16 15:26 06/24/16 16:22 06/24/16 17:05 Bedside Glucose 89 93 85 73 Test 06/24/16 18:08 06/24/16 18:16 06/24/16 19:03 06/24/16 20:04 Bedside Glucose 84 81 82 White Blood Count 9.2 Red Blood Count 3.04 L Hemoglobin 9.0 L Hematocrit 27.5 L Mean Corpuscular Volume 90.5 Mean Corpuscular Hemoglobin 29.6 Mean Corpuscular Hemoglobin Concent 32.7 Red Cell Distribution Width 18.3 H Platelet Count 108 L Mean Platelet Volume 11.8 H Neutrophils % 75.0 Band Neutrophils % 14.0 H Lymphocytes % 3.0 L Monocytes % 5.0 Eosinophils % Metamyelocytes % 2.0 H Myelocytes % 1.0 H Neutrophils # 6.8 Lymphocytes # 0.3 L Monocytes # 0.5 Eosinophils # Metamyelocytes # 0.2 Myelocytes # 0.2 Platelet Estimate PLT APPEAR DECREASED Large Platelets FEW Giant Platelets FEW Spherocytes FEW Ovalocytes FEW Prothrombin Time 19.8 H Prothrombin Time Ratio 1.5 INR International Normalized Ratio 1.67 Activated Partial Thromboplast Time 39.3 H Fibrinogen 478.0 #H Sodium Level 142 Potassium Level 3.1 L Chloride Level 110 Carbon Dioxide Level 21 Anion Gap 14 Blood Urea Nitrogen 50 H Creatinine 2.06 H Glucose Level 84 Calcium Level 7.3 L Phosphorus Level 5.1 H Magnesium Level 1.6 L Troponin I 0.853 *H Amylase Level 36 Lipase 51 Test 06/24/16 21:00 06/24/16 21:52 06/24/16 22:04 Bedside Glucose 82 87 Blood Gas Specimen Source Blood arterial Arterial Blood Date Drawn 06/24/2016 10:00:53 PM Arterial Blood pH (Temp corrected) 7.422 Arterial Blood pCO2 (Temp correct) 27.9 L Arterial Blood pO2 (Temp corrected) 77.8 L Arterial Blood HCO3 18.2 L Arterial Blood Base Excess -5.8 L Arterial Blood Oxygen Saturation 95.9 Dexter Test N/A Arterial Blood Gas Puncture Site Right Brachial Arterial Blood Carboxyhemoglobin 0.3 Arterial Blood Methemoglobin 0.2 Blood Gas A-a O2 Differential 104.8 H Oxyhemoglobin Percent 95.4 Total Hemoglobin 10.0 L Blood Gas Temperature 35.0 Blood Gas Respiration Rate 14.0 Blood Gas Actual Respiration Rate 14 Blood Gas Modality VENT - AC FiO2 30.0 Blood Gas Tidal Volume 550.0 Blood Gas Low PEEP Setting 5.0 Blood Gas Notified Whom UP Blood Gas Notified Time 06/24/2016 10:19:12 PM Medications Medications Current Medications Norepinephrine 250 ml @ 1.875 mls/ hr TITRATE IV Last administered on 15:37; Admin Dose 18.75 MLS/HR; Start 06/23/16 at 12:00 Vecuronium [place]/Dextrose (Norcuron/D5W) 100 ml @ 4.36 mls/hr [id number] IV Last administered on 06/24/16 11:15; Admin Dose 3.6 MLS/HR; Start 06/23/16 at 15:52 Acetaminophen (Tylenol Supp) 650 mg Q4H PRN [place] TEMP > 37C; Start 06/23/16 at 16 :00 Acetaminophen (Tylenol Liquid) 650 mg Q4H PRN PO TEMP > 37C; Start 06/23/16 at 16:00 Acetaminophen (Tylenol Supp) 500 mg Q6H [place] Last administered on 06/24/16 21:44 ; Admin Dose 500 MG; Start 06/24/16 at 16:00 Acetaminophen (Tylenol Liquid) 500 mg Q6H PO Last administered on 06/24/16 21: 41; Admin Dose 500 MG; Start 06/24/16 at 16:00 Meperidine HCl (Demerol) 12.5 mg Q4H PRN IV POST OPERATIVE SHIVERING; Start at 16:00 Meperidine HCl (Demerol) 25 mg Q4H PRN IV POST OPERATIVE SHIVERING; Start 06/23 at 16:00 Eye Lubricant (Akwa Oint) 1 applic Q6 BOTH EYES Last administered on 06/24/16 17:54; Admin Dose 1 APPLIC; Start 06/23/16 at 18:00 Eye Lubricant (Artificial Tears Oph) 2 drop Q6 BOTH EYES Last administered on 17:54; Admin Dose 2 DROP; Start 06/23/16 at 18:00 Diagnostic Test (Pha) (Accu-Chek) 1 ea Q1H XX Last administered on 06/24/16 22 :00; Admin Dose 1 EA; Start 06/23/16 at 16:00 Dextrose (D50w Syringe) 25 ml Q15M PRN IV Till BS 80 mg/dL or above x2; Start 06/23/16 at 16:00 Dextrose 50 ml 50 ml Q15M PRN IV Till BS 80 mg/dL or above x2; Start 06/23/16 at 16:00 Piperacillin Sod/ Tazobactam Sod 100 ml @ 200 mls/hr Q8 IVPB Last administered on 06/24/16 21:11; Admin Dose 200 MLS/HR; Start 06/23/16 at 16:00 Lactated Ringer's 1,000 ml @ 75 mls/hr [id number] IV Last administered on 21:38; Admin Dose 75 MLS/HR; Start 06/23/16 at 18:00 Midazolam HCl (Versed) 50 ml @ 1 mls/hr TITRATE IV Last administered on 20:50; Admin Dose 5 MLS/HR; Start 06/23/16 at 23:00 Pantoprazole (Protonix Iv) 40 mg DAILY@06 IV ; Start 06/25/16 at 06:00 MARIA ESTHER INMAN MD Jun 24, 2016 23:00
[2016-06-25] VITALS (47 sets, daily range): BP systolic 85–115; BP diastolic 47–68; PULSE 58–96; RESP 14
[2016-06-25] MEDS: OCULAR LUBRICANT 3.5 GM OPH OINT BOTH EYES SCH ×4 (00:09→17:09)
[2016-06-25] MEDS: ARTIFICIAL TEARS 15 ML OPH BOTH EYES SCH ×4 (00:09→17:09)
[2016-06-25 00:34] LABS: INR 1.65; PROTIME 19.6 Sec (12.2-14.2); PT RATIO 1.5
[2016-06-25 00:35] LABS: PARTIAL THROMBOPLASTIN TIME 37.1 Sec (25.0-35.0)
[2016-06-25 01:00] LABS: CALCIUM 7.1 mg/dl (8.4-10.2); CREATININE 2.2 mg/dl (0.61-1.24); MAGNESIUM 1.5 mg/dl (1.7-2.5); PHOSPHORUS 5.9 mg/dl (2.5-4.9); POTASSIUM 3.4 mmol/L (3.5-5.1)
[2016-06-25] MEDS: ACCU-CHEK XX SCH ×13 (01:00→12:00)
[2016-06-25 01:15] LABS: TROPONIN-I 0.865 ng/ml (0.00-0.12)
[2016-06-25] MEDS: ACETAMINOPHEN 650 MG SUPP PR SCH (04:09)
[2016-06-25] MEDS: ACETAMINOPHEN 650MG/20.3ML CUP PO SCH ×4 (04:09→21:07)
[2016-06-25] MEDS: PANTOPRAZOLE 40 MG INJ IV SCH (06:15)
[2016-06-25] MEDS: PIPER-TAZO 3.375 GM IV (PMX) 100 ML IVPB SCH ×2 (06:15→13:59)
[2016-06-25 06:25] LABS: ADD SCAN DIFF NO
[2016-06-25 06:41] LABS: ABNORMAL IP MESSAGE 1; HEMOGLOBIN 8.8 g/dl (14.0-18.0); MEAN CORPUSCULAR HEMOGLOBIN 29.6 pg (29.0-33.0); MEAN CORPUSCULAR HGB CONC 32.6 g/dl (32.0-37.0); MEAN CORPUSCULAR VOLUME 90.9 fl (82.0-101.0); MEAN PLATELET VOLUME 11.8 fl (7.4-10.4); PLATELET COUNT 113 10^3/UL (140-415); RED BLOOD COUNT 2.97 10^6/ul (4.70-6.10); RED CELL DISTRIBUTION WIDTH 18.9 % (11.5-14.5); WHITE BLOOD COUNT 9.7 10^3/ul (4.8-10.8)
[2016-06-25 06:46] LABS: POTASSIUM 3.6 mmol/L (3.5-5.1)
[2016-06-25 06:49] LABS: CALCIUM 7.3 mg/dl (8.4-10.2); CREATININE 2.5 mg/dl (0.61-1.24); PHOSPHORUS 6.7 mg/dl (2.5-4.9)
[2016-06-25 06:50] LABS: MAGNESIUM 1.5 mg/dl (1.7-2.5)
[2016-06-25 07:01] LABS: TROPONIN-I 1.09 ng/ml (0.00-0.12)
[2016-06-25 07:12] LABS: INR 1.52; PROTIME 18.4 Sec (12.2-14.2); PT RATIO 1.4
[2016-06-25 07:13] LABS: PARTIAL THROMBOPLASTIN TIME 35.7 Sec (25.0-35.0)
[2016-06-25] MEDS ORDERED: MAGNESIUM SULFATE 2 GM/50 ML 50 ML IVPB ONE (07:30)
[2016-06-25] MEDS: POTASSIUM CHLORIDE 50 ML IVPB PRN ×2 (08:24→10:21)
--- NOTE | 2016-06-25 08:48 | RADRPT ---
PROCEDURE: XR Chest. CLINICAL INDICATION: Shortness of breath. TECHNIQUE: Single frontal view. COMPARISON: 06/24/2016. FINDINGS: The endotracheal tube, nasogastric tube, and right internal jugular vein catheter remain in satisfac tory position. Pulmonary edema is unchanged. There are small bilateral pleural effusions with righ t larger than left. The right is larger than seen previously. The heart is enlarged. There is calcification in the aorta consistent with atherosclerosis. There is no pneumothorax. IMPRESSION: 1. Larger right pleural effusion. 2. No other change from 06/24/2016. RPTAT: QQ .Gutierrez Morgan MD, MD Date Time Electronically viewed and signed by .Gutierrez Morgan MD, MD on 06/25/2016 08:48 .R/
[2016-06-25 09:04] LABS: AADO2 Arterial 73.6 mmHg (7.0-24.0); Allen Test ACCEPTAB; Arterial Base Excess -7.4 mmol/L (-3.0-3); Arterial COHb 0.3 % (0.0-3.0); Arterial Fraction of Oxyhgb 96.1 % (93.0-99.0); Arterial HCO3 17.3 mmol/L (22.0-26.0); Arterial MetHb 0.2 % (0.0-1.5); Arterial Total Hemglobin 9.3 g/dl (12.0-18.0); MODE VENT - AC
--- NOTE | 2016-06-25 09:04 | RADRPT ---
Vent Rate: 71 bpm RR Interval: 0 msec GA Interval: 242 msec QRS Duration: 90 msec QT Interval: 488 msec QTC Interval: 530 msec P-R-T [place]: 44 - -9 - 3 degrees Sinus rhythm with 1st degree AV block with premature atrial complexes Prolonged QT Abnormal ECG Electronically Signed By: Radhames Mathew [id number]
--- NOTE | 2016-06-25 09:22 | CONS ---
Date/Time of Note Date/Time of Note DATE: 06/25/16 TIME: 09:20 Assessment/Plan Assessment/Plan Additional Assessment/Plan Ventilator settings; AC of 14, tidal volume 550, PEEP of 5, 30% FiO2. Assessment recommendations; 1. Patient admitted with cardiac arrest status post hypothermia protocol still under the sedative effect. 2. Possibly some element of aspiration pneumonia. 3. Anemia. 4. Acute renal injury. Continue to hold sedation, once the patient is off sedative effect he will be evaluated for possible weaning from ventilator. Meanwhile continue current treatment. Consultation Date/Type/Reason Admit Date/Time Jun 23, 2016 at 14:02 Initial Consult Date Type of Consultation: pulmonary ICU 24 HR Interval Summary Free Text/Dictation Patient's condition remains stable. Has been taken out of hypothermia protocol still under the sedative effect though. Exam; elderly male, orally intubated, sedated. Currently in no distress. Exam/Review of Systems Vital Signs Vitals Vital Signs Date Time Temp Pulse Resp B/P Pulse Ox O2 Delivery O2 Flow Rate FiO2 06/25/16 06:30 86 14 95/59 100 Mechanical Ventilator 06/25/16 06:00 98.9 06/25/16 05:00 30 Intake and Output 06/24/16 06/24/16 06/25/16 15:00 23:00 07:00 Intake Total 839.89 ml 891.2 ml 672 ml Output Total 99 ml 76 ml 52 ml Balance 740.89 ml 815.2 ml 620 ml Exam HEENT examination; supple neck, patient has bilateral surgical pupils, is fair dentition. Orally intubated. No neck masses. No thyromegaly. No neck bruits. No lymphadenopathy. Chest exam is; clear to auscultation. S1-S2 audible, no murmurs. Regular rhythm. Abdomen exam is; soft, non-distended. No organomegaly. Extremity exam; OXYACETYLENE BURNER examination; patient is sedated. Results Result Diagram: 06/25/1660406/25/16604 Results 24 hrs Laboratory Tests Test 06/24/16 09:52 06/24/16 10:12 06/24/16 11:12 06/24/16 12:01 Blood Gas Specimen Source Blood arterial Arterial Blood Date Drawn 06/24/2016 10:15:44 AM Arterial Blood pH (Temp corrected) 7.485 H Arterial Blood pCO2 (Temp correct) 22.9 L Arterial Blood pO2 (Temp corrected) 127.0 H Arterial Blood HCO3 17.5 L Arterial Blood Base Excess -5.8 L Arterial Blood Oxygen Saturation 98.3 Dexter Test ACCEPTAB Arterial Blood Gas Puncture Site Right Radial Arterial Blood Carboxyhemoglobin 0.2 Arterial Blood Methemoglobin 0.2 Blood Gas A-a O2 Differential 135.9 H Oxyhemoglobin Percent 97.9 Total Hemoglobin 10.5 L Blood Gas Temperature 32.7 Blood Gas Respiration Rate 14.0 Blood Gas Actual Respiration Rate 14 Blood Gas Modality VENT - AC FiO2 40.0 Blood Gas Tidal Volume 550.0 Blood Gas Low PEEP Setting 5.0 Blood Gas Notified Whom JLD Blood Gas Notified Time 06/24/2016 10:30:37 AM Bedside Glucose 94 85 White Blood Count 9.9 Red Blood Count 3.10 L Hemoglobin 9.5 L Hematocrit 28.3 L Mean Corpuscular Volume 91.3 Mean Corpuscular Hemoglobin 30.6 Mean Corpuscular Hemoglobin Concent 33.6 Red Cell Distribution Width 18.2 H Platelet Count 116 L Mean Platelet Volume 11.6 H Neutrophils % 70.0 Band Neutrophils % 25.0 H Lymphocytes % 3.0 L Monocytes % 2.0 Eosinophils % Neutrophils # 6.9 Lymphocytes # 0.3 L Monocytes # 0.2 L Eosinophils # Prothrombin Time 21.7 H Prothrombin Time Ratio 1.7 INR International Normalized Ratio 1.87 Activated Partial Thromboplast Time 38.7 H Fibrinogen 442.0 Sodium Level 141 Potassium Level 3.2 L Chloride Level 111 H Carbon Dioxide Level 21 Anion Gap 12 Blood Urea Nitrogen 47 H Creatinine 2.02 H Glucose Level 95 Calcium Level 7.4 L Phosphorus Level 4.5 Magnesium Level 1.6 L Troponin I 1.050 *H Amylase Level < 30 Lipase 36 Test 06/24/16 12:24 06/24/16 13:11 06/24/16 14:14 06/24/16 15:26 Bedside Glucose 80 92 89 93 Test 06/24/16 16:22 06/24/16 17:05 06/24/16 18:08 06/24/16 18:16 Bedside Glucose 85 73 84 White Blood Count 9.2 Red Blood Count 3.04 L Hemoglobin 9.0 L Hematocrit 27.5 L Mean Corpuscular Volume 90.5 Mean Corpuscular Hemoglobin 29.6 Mean Corpuscular Hemoglobin Concent 32.7 Red Cell Distribution Width 18.3 H Platelet Count 108 L Mean Platelet Volume 11.8 H Neutrophils % 75.0 Band Neutrophils % 14.0 H Lymphocytes % 3.0 L Monocytes % 5.0 Eosinophils % Metamyelocytes % 2.0 H Myelocytes % 1.0 H Neutrophils # 6.8 Lymphocytes # 0.3 L Monocytes # 0.5 Eosinophils # Metamyelocytes # 0.2 Myelocytes # 0.2 Platelet Estimate PLT APPEAR DECREASED Large Platelets FEW Giant Platelets FEW Spherocytes FEW Ovalocytes FEW Prothrombin Time 19.8 H Prothrombin Time Ratio 1.5 INR International Normalized Ratio 1.67 Activated Partial Thromboplast Time 39.3 H Fibrinogen 478.0 #H Sodium Level 142 Potassium Level 3.1 L Chloride Level 110 Carbon Dioxide Level 21 Anion Gap 14 Blood Urea Nitrogen 50 H Creatinine 2.06 H Glucose Level 84 Calcium Level 7.3 L Phosphorus Level 5.1 H Magnesium Level 1.6 L Troponin I 0.853 *H Amylase Level 36 Lipase 51 Test 06/24/16 19:03 06/24/16 20:04 06/24/16 21:00 06/24/16 21:52 Bedside Glucose 81 82 82 Blood Gas Specimen Source Blood arterial Arterial Blood Date Drawn 06/24/2016 10:00:53 PM Arterial Blood pH (Temp corrected) 7.422 Arterial Blood pCO2 (Temp correct) 27.9 L Arterial Blood pO2 (Temp corrected) 77.8 L Arterial Blood HCO3 18.2 L Arterial Blood Base Excess -5.8 L Arterial Blood Oxygen Saturation 95.9 Dexter Test N/A Arterial Blood Gas Puncture Site Right Brachial Arterial Blood Carboxyhemoglobin 0.3 Arterial Blood Methemoglobin 0.2 Blood Gas A-a O2 Differential 104.8 H Oxyhemoglobin Percent 95.4 Total Hemoglobin 10.0 L Blood Gas Temperature 35.0 Blood Gas Respiration Rate 14.0 Blood Gas Actual Respiration Rate 14 Blood Gas Modality VENT - AC FiO2 30.0 Blood Gas Tidal Volume 550.0 Blood Gas Low PEEP Setting 5.0 Blood Gas Notified Whom UP Blood Gas Notified Time 06/24/2016 10:19:12 PM Test 06/24/16 22:04 06/24/16 23:12 06/25/16 00:04 06/25/16 00:08 Bedside Glucose 87 90 94 Prothrombin Time 19.6 H Prothrombin Time Ratio 1.5 INR International Normalized Ratio 1.65 Activated Partial Thromboplast Time 37.1 H Fibrinogen 449.0 # Sodium Level 141 Potassium Level 3.4 L Chloride Level 110 Carbon Dioxide Level 20 L Anion Gap 14 Blood Urea Nitrogen 52 H Creatinine 2.20 H Glucose Level 93 Calcium Level 7.1 L Phosphorus Level 5.9 H Magnesium Level 1.5 L Troponin I 0.865 *H Amylase Level 56 Lipase 229 Test 06/25/16 00:59 06/25/16 02:10 06/25/16 03:58 06/25/16 06:05 Bedside Glucose 92 87 88 White Blood Count 9.7 Red Blood Count 2.97 L Hemoglobin 8.8 L Hematocrit 27.0 L Mean Corpuscular Volume 90.9 Mean Corpuscular Hemoglobin 29.6 Mean Corpuscular Hemoglobin Concent 32.6 Red Cell Distribution Width 18.9 H Platelet Count 113 L Mean Platelet Volume 11.8 H Eosinophils % Neutrophils # Eosinophils # Sodium Level 143 Potassium Level 3.6 Chloride Level 108 Carbon Dioxide Level 21 Anion Gap 18 H Blood Urea Nitrogen 55 H Creatinine 2.50 H Glucose Level 97 Calcium Level 7.3 L Phosphorus Level 6.7 H Magnesium Level 1.5 L Troponin I 1.090 *H Amylase Level 162 H Lipase 979 H Test 06/25/16 06:10 06/25/16 06:30 06/25/16 07:00 Bedside Glucose 100 Prothrombin Time 18.4 H Prothrombin Time Ratio 1.4 INR International Normalized Ratio 1.52 Activated Partial Thromboplast Time 35.7 H Fibrinogen 507.0 #H Blood Gas Specimen Source Blood arterial Arterial Blood Date Drawn 06/25/2016 7:32:11 AM Arterial Blood pH (Temp corrected) 7.353 Arterial Blood pCO2 (Temp correct) 31.8 L Arterial Blood pO2 (Temp corrected) 102.9 H Arterial Blood HCO3 17.3 L Arterial Blood Base Excess -7.4 L Arterial Blood Oxygen Saturation 96.6 Dexter Test ACCEPTAB Arterial Blood Gas Puncture Site Right Radial Arterial Blood Carboxyhemoglobin 0.3 Arterial Blood Methemoglobin 0.2 Blood Gas A-a O2 Differential 73.6 H Oxyhemoglobin Percent 96.1 Total Hemoglobin 9.3 L Blood Gas Temperature 37.0 Blood Gas Respiration Rate 14.0 Blood Gas Actual Respiration Rate 14 Blood Gas Modality VENT - AC FiO2 30.0 Blood Gas Tidal Volume 550.0 Blood Gas Low PEEP Setting 5.0 Blood Gas Notified Whom JLD Blood Gas Notified Time 06/25/2016 8:12:53 AM Medications Medications Current Medications Norepinephrine (Levophed) 250 ml @ 1.875 mls/ hr TITRATE IV Last administered on 06/23/16 15:37; Admin Dose 18.75 MLS/HR; Start 06/23/16 at 12:00 Acetaminophen (Tylenol Supp) 650 mg Q4H PRN [place] TEMP > 37C; Start 06/23/16 at 16 :00 Acetaminophen (Tylenol Liquid) 650 mg Q4H PRN PO TEMP > 37C; Start 06/23/16 at 16:00 Acetaminophen (Tylenol Supp) 500 mg Q6H MT Last administered on 06/25/16 04:09 ; Admin Dose 500 MG; Start 06/24/16 at 16:00 Acetaminophen (Tylenol Liquid) 500 mg Q6H PO Last administered on 06/25/16 04: 09; Admin Dose 500 MG; Start 06/24/16 at 16:00 Meperidine HCl (Demerol) 12.5 mg Q4H PRN IV POST OPERATIVE SHIVERING; Start at 16:00 Meperidine HCl (Demerol) 25 mg Q4H PRN IV POST OPERATIVE SHIVERING; Start 06/23 at 16:00 Eye Lubricant (Akwa Oint) 1 applic Q6 BOTH EYES Last administered on 06/25/16 06:16; Admin Dose 1 APPLIC; Start 06/23/16 at 18:00 Eye Lubricant (Artificial Tears Oph) 2 drop Q6 BOTH EYES Last administered on 06:16; Admin Dose 2 DROP; Start 06/23/16 at 18:00 Diagnostic Test (Pha) (Accu-Chek) 1 ea Q1H XX Last administered on 06/25/16 07 :00; Admin Dose 1 EA; Start 06/23/16 at 16:00 Dextrose (D50w Syringe) 25 ml Q15M PRN IV Till BS 80 mg/dL or above x2; Start 06/23/16 at 16:00 Dextrose 50 ml 50 ml Q15M PRN IV Till BS 80 mg/dL or above x2; Start 06/23/16 at 16:00 Piperacillin Sod/ Tazobactam Sod 100 ml @ 200 mls/hr Q8 IVPB Last administered on 06/25/16 06:15; Admin Dose 200 MLS/HR; Start 06/23/16 at 16:00 Lactated Ringer's 1,000 ml @ 75 mls/hr [id number] IV Last administered on 21:38; Admin Dose 75 MLS/HR; Start 06/23/16 at 18:00 Midazolam HCl (Versed) 50 ml @ 1 mls/hr TITRATE IV Last administered on 20:50; Admin Dose 5 MLS/HR; Start 06/23/16 at 23:00 Pantoprazole 40 mg 40 mg DAILY@06 IV Last administered on 06/25/16 06:15; Admin Dose 40 MG; Start 06/25/16 at 06:00 Magnesium Sulfate (Magnesium Sulfate 2 Gm/50 ml) 50 ml @ 25 mls/hr ONCE ONCE IVPB Last administered on 06/25/16 08:24; Admin Dose 25 MLS/HR; Start at 07:30; Stop 06/25/16 at 09:29 CADEN FRANCISCO Jun 25, 2016 09:22
[2016-06-25] MEDS: LACTATED RINGER'S 1,000 ML IV SCH (09:40)
[2016-06-25 09:51] LABS: LYMPHOCYTES # 0.5 10^3/ul (0.8-2.9); MONOCYTE # 0.3 10^3/ul (0.3-0.9); NEUTROPHIL # 8.8 10^3/ul (1.6-7.5)
[2016-06-25 09:52] LABS: ANISOCYTOSIS 1+; PLATELET ESTIMATE PLT APPEAR DECREASED
[2016-06-25] MEDS: NORepinephrine 8MG/250 ML (PMX 250 ML IV SCH (10:51)
[2016-06-25] MEDS ORDERED: SOD CHLORIDE 0.9% 500 ML IV ONE (12:00)
--- NOTE | 2016-06-25 12:11 | PN ---
Date/Time of Note Date/Time of Note DATE: 06/25/16 TIME: 12:07 Assessment/Plan VTE Prophylaxis VTE Prophylaxis Intervention: contraindicated Lines/Catheters [facility] Central Line Central line still needed: Yes Urinary Cath still in place: Yes Reason Cath still needed: urinary retention (Acute renal insufficiency) Assessment/Plan Problems: (1) Cardiac arrest Status: Acute Comment: This gentleman is status post outpatient cardiac arrest. Blood cultures are positive for strep pneumoniae. Most likely source is going to be from the lungs. Again we do not have any indication about whether or not he never had the pneumococcal vaccine although that is not relevant at this point in time. Septic shock due to pneumococcal sepsis has a very high mortality rate. Will do our best to support him but his prognosis is going to be guarded on this point alone. In addition he is now passed rewarming protocol we will see how he recovers although I am somewhat guarded in my position on this separate from the pneumococcal sepsis. I will get him started onto some nutrition. (2) Non-ST elevation [place] (NSTEMI) Status: Acute Comment: This is due to the stress of the event of the cardiac arrest/septic shock from pneumococcal sepsis (3) Acute on chronic renal insufficiency Status: Acute Comment: He may be slightly volume depleted. Him to go ahead and give him with fluid bolus and follow him (4) Hypothermia, induced Status: Acute Comment: He is coming out of the hypothermia protocol now we will see how he recovers. 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 Additional antibiotics are not presently indicated. Fluid bolus to try and bring his pressure up (8) Essential hypertension Status: Chronic Comment: He is presently on pressor support. Subjective 24 Hr Interval Summary Free Text/Dictation Please note the admission history and physical was cut off by the hospital dictation service. Patient is now been rewarmed but presently is not responsive. Subjective hx not possible: pt non-verbal, pt critical status Exam/Review of Systems Vital Signs Vitals Vital Signs Date Time Temp Pulse Resp B/P Pulse Ox O2 Delivery O2 Flow Rate FiO2 06/25/16 11:15 66 14 115/65 98 06/25/16 11:00 Mechanical Ventilator 06/25/16 08:00 97.9 06/25/16 08:00 30 Intake and Output 06/24/16 06/24/16 06/25/16 15:00 23:00 07:00 Intake Total 839.89 ml 891.2 ml 747 ml Output Total 99 ml 76 ml 53 ml Balance 740.89 ml 815.2 ml 694 ml Exam Nonresponsive to all stimuli Constitutional: non-verbal Head: atraumatic, normocephalic Eyes: nl conjunctiva, nl lids, nl sclera, other (Does not move eyes right or left pupils fixed nonresponsive no blink reflex) Neck: non-tender, supple Respiratory: clear to auscultation, normal air movement Cardiovascular: nl pulses, regular rate and rhythm Gastrointestinal: nl liver, spleen, non-tender, soft Results Result Diagram: 06/25/1660406/25/16604 Results 24 hrs Laboratory Tests Test 06/24/16 12:24 06/24/16 13:11 06/24/16 14:14 06/24/16 15:26 Bedside Glucose 80 92 89 93 Test 06/24/16 16:22 06/24/16 17:05 06/24/16 18:08 06/24/16 18:16 Bedside Glucose 85 73 84 White Blood Count 9.2 Red Blood Count 3.04 L Hemoglobin 9.0 L Hematocrit 27.5 L Mean Corpuscular Volume 90.5 Mean Corpuscular Hemoglobin 29.6 Mean Corpuscular Hemoglobin Concent 32.7 Red Cell Distribution Width 18.3 H Platelet Count 108 L Mean Platelet Volume 11.8 H Neutrophils % 75.0 Band Neutrophils % 14.0 H Lymphocytes % 3.0 L Monocytes % 5.0 Eosinophils % Metamyelocytes % 2.0 H Myelocytes % 1.0 H Neutrophils # 6.8 Lymphocytes # 0.3 L Monocytes # 0.5 Eosinophils # Metamyelocytes # 0.2 Myelocytes # 0.2 Platelet Estimate PLT APPEAR DECREASED Large Platelets FEW Giant Platelets FEW Spherocytes FEW Ovalocytes FEW Prothrombin Time 19.8 H Prothrombin Time Ratio 1.5 INR International Normalized Ratio 1.67 Activated Partial Thromboplast Time 39.3 H Fibrinogen 478.0 #H Sodium Level 142 Potassium Level 3.1 L Chloride Level 110 Carbon Dioxide Level 21 Anion Gap 14 Blood Urea Nitrogen 50 H Creatinine 2.06 H Glucose Level 84 Calcium Level 7.3 L Phosphorus Level 5.1 H Magnesium Level 1.6 L Troponin I 0.853 *H Amylase Level 36 Lipase 51 Test 06/24/16 19:03 06/24/16 20:04 06/24/16 21:00 06/24/16 21:52 Bedside Glucose 81 82 82 Blood Gas Specimen Source Blood arterial Arterial Blood Date Drawn 06/24/2016 10:00:53 PM Arterial Blood pH (Temp corrected) 7.422 Arterial Blood pCO2 (Temp correct) 27.9 L Arterial Blood pO2 (Temp corrected) 77.8 L Arterial Blood HCO3 18.2 L Arterial Blood Base Excess -5.8 L Arterial Blood Oxygen Saturation 95.9 Dexter Test N/A Arterial Blood Gas Puncture Site Right Brachial Arterial Blood Carboxyhemoglobin 0.3 Arterial Blood Methemoglobin 0.2 Blood Gas A-a O2 Differential 104.8 H Oxyhemoglobin Percent 95.4 Total Hemoglobin 10.0 L Blood Gas Temperature 35.0 Blood Gas Respiration Rate 14.0 Blood Gas Actual Respiration Rate 14 Blood Gas Modality VENT - AC FiO2 30.0 Blood Gas Tidal Volume 550.0 Blood Gas Low PEEP Setting 5.0 Blood Gas Notified Whom UP Blood Gas Notified Time 06/24/2016 10:19:12 PM Test 06/24/16 22:04 06/24/16 23:12 06/25/16 00:04 06/25/16 00:08 Bedside Glucose 87 90 94 Prothrombin Time 19.6 H Prothrombin Time Ratio 1.5 INR International Normalized Ratio 1.65 Activated Partial Thromboplast Time 37.1 H Fibrinogen 449.0 # Sodium Level 141 Potassium Level 3.4 L Chloride Level 110 Carbon Dioxide Level 20 L Anion Gap 14 Blood Urea Nitrogen 52 H Creatinine 2.20 H Glucose Level 93 Calcium Level 7.1 L Phosphorus Level 5.9 H Magnesium Level 1.5 L Troponin I 0.865 *H Amylase Level 56 Lipase 229 Test 06/25/16 00:59 06/25/16 02:10 06/25/16 03:58 06/25/16 06:05 Bedside Glucose 92 87 88 White Blood Count 9.7 Red Blood Count 2.97 L Hemoglobin 8.8 L Hematocrit 27.0 L Mean Corpuscular Volume 90.9 Mean Corpuscular Hemoglobin 29.6 Mean Corpuscular Hemoglobin Concent 32.6 Red Cell Distribution Width 18.9 H Platelet Count 113 L Mean Platelet Volume 11.8 H Neutrophils % 91.0 H Band Neutrophils % 1.0 Lymphocytes % 5.0 L Monocytes % 3.0 Eosinophils % Neutrophils # 8.8 H Lymphocytes # 0.5 L Monocytes # 0.3 Eosinophils # Platelet Estimate PLT APPEAR DECREASED Anisocytosis 1+ Sodium Level 143 Potassium Level 3.6 Chloride Level 108 Carbon Dioxide Level 21 Anion Gap 18 H Blood Urea Nitrogen 55 H Creatinine 2.50 H Glucose Level 97 Calcium Level 7.3 L Phosphorus Level 6.7 H Magnesium Level 1.5 L Troponin I 1.090 *H Amylase Level 162 H Lipase 979 H Test 06/25/16 06:10 06/25/16 06:30 06/25/16 07:00 06/25/16 10:20 Bedside Glucose 100 81 Prothrombin Time 18.4 H Prothrombin Time Ratio 1.4 INR International Normalized Ratio 1.52 Activated Partial Thromboplast Time 35.7 H Fibrinogen 507.0 #H Blood Gas Specimen Source Blood arterial Arterial Blood Date Drawn 06/25/2016 7:32:11 AM Arterial Blood pH (Temp corrected) 7.353 Arterial Blood pCO2 (Temp correct) 31.8 L Arterial Blood pO2 (Temp corrected) 102.9 H Arterial Blood HCO3 17.3 L Arterial Blood Base Excess -7.4 L Arterial Blood Oxygen Saturation 96.6 Dexter Test ACCEPTAB Arterial Blood Gas Puncture Site Right Radial Arterial Blood Carboxyhemoglobin 0.3 Arterial Blood Methemoglobin 0.2 Blood Gas A-a O2 Differential 73.6 H Oxyhemoglobin Percent 96.1 Total Hemoglobin 9.3 L Blood Gas Temperature 37.0 Blood Gas Respiration Rate 14.0 Blood Gas Actual Respiration Rate 14 Blood Gas Modality VENT - AC FiO2 30.0 Blood Gas Tidal Volume 550.0 Blood Gas Low PEEP Setting 5.0 Blood Gas Notified Whom JLD Blood Gas Notified Time 06/25/2016 8:12:53 AM Medications Medications Current Medications Norepinephrine (Levophed) 250 ml @ 1.875 mls/ hr TITRATE IV Last administered on 06/25/16t 10:51; Admin Dose 3.75 MLS/HR; Start 06/23/16 at 12:00 Acetaminophen (Tylenol Supp) 650 mg Q4H PRN [place] TEMP > 37C; Start 06/23/16 at 16 :00 Acetaminophen (Tylenol Liquid) 650 mg Q4H PRN PO TEMP > 37C; Start 06/23/16 at 16:00 Acetaminophen (Tylenol Liquid) 500 mg Q6H PO Last administered on 06/25/16 09: 40; Admin Dose 500 MG; Start 06/24/16 at 16:00 Eye Lubricant (Akwa Oint) 1 applic Q6 BOTH EYES Last administered on 06/25/16 11:54; Admin Dose 1 APPLIC; Start 06/23/16 at 18:00 Eye Lubricant (Artificial Tears Oph) 2 drop Q6 BOTH EYES Last administered on 11:54; Admin Dose 2 DROP; Start 06/23/16 at 18:00 Diagnostic Test (Pha) (Accu-Chek) 1 ea Q1H XX Last administered on 06/25/16 10 :21; Admin Dose 1 EA; Start 06/23/16 at 16:00 Dextrose (D50w Syringe) 25 ml Q15M PRN IV Till BS 80 mg/dL or above x2; Start 06/23/16 at 16:00 Dextrose 50 ml 50 ml Q15M PRN IV Till BS 80 mg/dL or above x2; Start 06/23/16 at 16:00 Piperacillin Sod/ Tazobactam Sod 100 ml @ 200 mls/hr Q8 IVPB Last administered on 06/25/16 06:15; Admin Dose 200 MLS/HR; Start 06/23/16 at 16:00 Lactated Ringer's 1,000 ml @ 75 mls/hr [id number] IV Last administered on 09:40; Admin Dose 75 MLS/HR; Start 06/23/16 at 18:00 Midazolam HCl (Versed) 50 ml @ 1 mls/hr TITRATE IV Last administered on 20:50; Admin Dose 5 MLS/HR; Start 06/23/16 at 23:00 Pantoprazole 40 mg 40 mg DAILY@06 IV Last administered on 06/25/16 06:15; Admin Dose 40 MG; Start 06/25/16 at 06:00 Sodium Chloride (NS) 500 ml @ 500 mls/hr Q1H ONCE IV ; Start 06/25/16 at 12:00 ; Stop 06/25/16 at 12:59; Status UNV RAJAT CASTRO MD Jun 25, 2016 12:11
[2016-06-25] MEDS: INSULIN ASPART [NOVOLOG] 3 ML PEN SC SCH ×3 (13:00→21:00)
[2016-06-25] MEDS ORDERED: GLUCOSE GEL 15 GRAM TUBE BUCCAL PRN (13:30)
[2016-06-25] MEDS ORDERED: GLUCOSE GEL 15 GRAM TUBE PO PRN ×2 (13:30)
[2016-06-25] MEDS ORDERED: GLUCAGON 1 MG INJ IM PRN (13:30)
[2016-06-25] MEDS ORDERED: DEXTROSE 50% 50 ML SYRINGE IV PRN ×2 (13:30)
--- NOTE | 2016-06-25 18:07 | CONS ---
Date/Time of Note Date/Time of Note DATE: 06/25/16 TIME: 18:04 Assessment/Plan Assessment/Plan Additional Assessment/Plan Severe sepsis Vent dependent respiratory failure Status post cardiac arrest Cardiomyopathy Pneumonia -Antibiotics as per infectious disease. Patient with outpatient nuclear stress test November 2015 with fixed defects with mild systolic dysfunction. Patient with frequent PACs and possible brief atrial for ablation yesterday. Maintain potassium above 4.0 and magnesium above 2.0. If no contraindication, start aspirin therapy, no beta-hellen secondary to hypotension, no statin secondary to abnormal LFTs. Consultation Date/Type/Reason Admit Date/Time Jun 23, 2016 at 14:02 Initial Consult Date Type of Consultation: cv 24 HR Interval Summary Free Text/Dictation Patient seen and examined. at bedside Exam/Review of Systems Vital Signs Vitals Vital Signs Date Time Temp Pulse Resp B/P Pulse Ox O2 Delivery O2 Flow Rate FiO2 06/25/16 17:30 60 14 100 06/25/16 17:00 90/52 Mechanical Ventilator 06/25/16 16:00 97.2 06/25/16 08:00 30 Intake and Output 06/24/16 06/24/16 06/25/16 15:00 23:00 07:00 Intake Total 839.89 ml 891.2 ml 747 ml Output Total 99 ml 76 ml 53 ml Balance 740.89 ml 815.2 ml 694 ml Exam No apparent distress, sedated and intubated Head: normocephalic ENMT: intubated Respiratory: other (Coarse breath sounds bilaterally, no wheezing) Cardiovascular: other (S1-S2 heard), regular rate and rhythm Gastrointestinal: bowel sounds, non-tender, soft Extremities: edema (Trace) Results Result Diagram: 06/25/1660406/25/16 06 Results 24 hrs Laboratory Tests Test 06/24/16 18:08 06/24/16 18:16 06/24/16 19:03 06/24/16 20:04 Bedside Glucose 84 81 82 White Blood Count 9.2 Red Blood Count 3.04 L Hemoglobin 9.0 L Hematocrit 27.5 L Mean Corpuscular Volume 90.5 Mean Corpuscular Hemoglobin 29.6 Mean Corpuscular Hemoglobin Concent 32.7 Red Cell Distribution Width 18.3 H Platelet Count 108 L Mean Platelet Volume 11.8 H Neutrophils % 75.0 Band Neutrophils % 14.0 H Lymphocytes % 3.0 L Monocytes % 5.0 Eosinophils % Metamyelocytes % 2.0 H Myelocytes % 1.0 H Neutrophils # 6.8 Lymphocytes # 0.3 L Monocytes # 0.5 Eosinophils # Metamyelocytes # 0.2 Myelocytes # 0.2 Platelet Estimate PLT APPEAR DECREASED Large Platelets FEW Giant Platelets FEW Spherocytes FEW Ovalocytes FEW Prothrombin Time 19.8 H Prothrombin Time Ratio 1.5 INR International Normalized Ratio 1.67 Activated Partial Thromboplast Time 39.3 H Fibrinogen 478.0 #H Sodium Level 142 Potassium Level 3.1 L Chloride Level 110 Carbon Dioxide Level 21 Anion Gap 14 Blood Urea Nitrogen 50 H Creatinine 2.06 H Glucose Level 84 Calcium Level 7.3 L Phosphorus Level 5.1 H Magnesium Level 1.6 L Troponin I 0.853 *H Amylase Level 36 Lipase 51 Test 06/24/16 21:00 06/24/16 21:52 06/24/16 22:04 06/24/16 23:12 Bedside Glucose 82 87 90 Blood Gas Specimen Source Blood arterial Arterial Blood Date Drawn 06/24/2016 10:00:53 PM Arterial Blood pH (Temp corrected) 7.422 Arterial Blood pCO2 (Temp correct) 27.9 L Arterial Blood pO2 (Temp corrected) 77.8 L Arterial Blood HCO3 18.2 L Arterial Blood Base Excess -5.8 L Arterial Blood Oxygen Saturation 95.9 Dexter Test N/A Arterial Blood Gas Puncture Site Right Brachial Arterial Blood Carboxyhemoglobin 0.3 Arterial Blood Methemoglobin 0.2 Blood Gas A-a O2 Differential 104.8 H Oxyhemoglobin Percent 95.4 Total Hemoglobin 10.0 L Blood Gas Temperature 35.0 Blood Gas Respiration Rate 14.0 Blood Gas Actual Respiration Rate 14 Blood Gas Modality VENT - AC FiO2 30.0 Blood Gas Tidal Volume 550.0 Blood Gas Low PEEP Setting 5.0 Blood Gas Notified Whom UP Blood Gas Notified Time 06/24/2016 10:19:12 PM Test 06/25/16 00:04 06/25/16 00:08 06/25/16 00:59 06/25/16 02:10 Bedside Glucose 94 92 87 Prothrombin Time 19.6 H Prothrombin Time Ratio 1.5 INR International Normalized Ratio 1.65 Activated Partial Thromboplast Time 37.1 H Fibrinogen 449.0 # Sodium Level 141 Potassium Level 3.4 L Chloride Level 110 Carbon Dioxide Level 20 L Anion Gap 14 Blood Urea Nitrogen 52 H Creatinine 2.20 H Glucose Level 93 Calcium Level 7.1 L Phosphorus Level 5.9 H Magnesium Level 1.5 L Troponin I 0.865 *H Amylase Level 56 Lipase 229 Test 06/25/16 03:58 06/25/16 06:05 06/25/16 06:10 06/25/16 06:30 Bedside Glucose 88 100 White Blood Count 9.7 Red Blood Count 2.97 L Hemoglobin 8.8 L Hematocrit 27.0 L Mean Corpuscular Volume 90.9 Mean Corpuscular Hemoglobin 29.6 Mean Corpuscular Hemoglobin Concent 32.6 Red Cell Distribution Width 18.9 H Platelet Count 113 L Mean Platelet Volume 11.8 H Neutrophils % 91.0 H Band Neutrophils % 1.0 Lymphocytes % 5.0 L Monocytes % 3.0 Eosinophils % Neutrophils # 8.8 H Lymphocytes # 0.5 L Monocytes # 0.3 Eosinophils # Platelet Estimate PLT APPEAR DECREASED Anisocytosis 1+ Sodium Level 143 Potassium Level 3.6 Chloride Level 108 Carbon Dioxide Level 21 Anion Gap 18 H Blood Urea Nitrogen 55 H Creatinine 2.50 H Glucose Level 97 Calcium Level 7.3 L Phosphorus Level 6.7 H Magnesium Level 1.5 L Troponin I 1.090 *H Amylase Level 162 H Lipase 979 H Prothrombin Time 18.4 H Prothrombin Time Ratio 1.4 INR International Normalized Ratio 1.52 Activated Partial Thromboplast Time 35.7 H Fibrinogen 507.0 #H Test 06/25/16 07:00 06/25/16 10:20 06/25/16 13:05 06/25/16 16:52 Blood Gas Specimen Source Blood arterial Arterial Blood Date Drawn 06/25/2016 7:32:11 AM Arterial Blood pH (Temp corrected) 7.353 Arterial Blood pCO2 (Temp correct) 31.8 L Arterial Blood pO2 (Temp corrected) 102.9 H Arterial Blood HCO3 17.3 L Arterial Blood Base Excess -7.4 L Arterial Blood Oxygen Saturation 96.6 Dexter Test ACCEPTAB Arterial Blood Gas Puncture Site Right Radial Arterial Blood Carboxyhemoglobin 0.3 Arterial Blood Methemoglobin 0.2 Blood Gas A-a O2 Differential 73.6 H Oxyhemoglobin Percent 96.1 Total Hemoglobin 9.3 L Blood Gas Temperature 37.0 Blood Gas Respiration Rate 14.0 Blood Gas Actual Respiration Rate 14 Blood Gas Modality VENT - AC FiO2 30.0 Blood Gas Tidal Volume 550.0 Blood Gas Low PEEP Setting 5.0 Blood Gas Notified Whom JLD Blood Gas Notified Time 06/25/2016 8:12:53 AM Bedside Glucose 81 107 98 Medications Medications Current Medications Norepinephrine (Levophed) 250 ml @ 1.875 mls/ hr TITRATE IV Last administered on 06/25/16 10:51; Admin Dose 3.75 MLS/HR; Start 06/23/16 at 12:00; Stop at 19:00 Acetaminophen (Tylenol Supp) 650 mg Q4H PRN [place] TEMP > 37C; Start 06/23/16 at 16 :00 Acetaminophen (Tylenol Liquid) 650 mg Q4H PRN PO TEMP > 37C; Start 06/23/16 at 16:00 Acetaminophen (Tylenol Liquid) 500 mg Q6H PO Last administered on 06/25/16 16: 53; Admin Dose 500 MG; Start 06/24/16 at 16:00 Eye Lubricant (Akwa Oint) 1 applic Q6 BOTH EYES Last administered on 06/25/16 17:09; Admin Dose 1 APPLIC; Start 06/23/16 at 18:00 Eye Lubricant 2 drop 2 drop Q6 BOTH EYES Last administered on 06/25/16 17:09; Admin Dose 2 DROP; Start 06/23/16 at 18:00 Lactated Ringer's 1,000 ml @ 75 mls/hr [id number] IV Last administered on 09:40; Admin Dose 75 MLS/HR; Start 06/23/16 at 18:00 Midazolam HCl (Versed) 50 ml @ 1 mls/hr TITRATE IV Last administered on 20:50; Admin Dose 5 MLS/HR; Start 06/23/16 at 23:00 Pantoprazole (Protonix Iv) 40 mg DAILY@06 IV Last administered on 06/25/16 06: 15; Admin Dose 40 MG; Start 06/25/16 at 06:00 Insulin Aspart (Novolog Insulin Pen) NOVOLOG *MILD* ALGORI... Q4 SC ; Start at 13:00 Miscellaneous Information 1 ea NOTE XX ; Start 06/25/16 at 13:30 Glucose (Glutose) 15 gm Q15M PRN PO DECREASED GLUCOSE; Start 06/25/16 at 13:30 Glucose (Glutose) 22.5 gm Q15M PRN PO DECREASED GLUCOSE; Start 06/25/16 at 13: 30 Dextrose (D50w Syringe) 25 ml Q15M PRN IV DECREASED GLUCOSE; Start 06/25/16 at 13:30 Dextrose (D50w Syringe) 50 ml Q15M PRN IV DECREASED GLUCOSE; Start 06/25/16 at 13:30 Glucagon (Glucagen) 1 mg Q15M PRN IM DECREASED GLUCOSE; Start 06/25/16 at 13:30 Glucose 15 gm 15 gm Q15M PRN BUCCAL DECREASED GLUCOSE; Start 06/25/16 at 13:30 Norepinephrine 16 mg/Dextrose 500 ml @ 1.87 mls/hr TITRATE IV ; Start 06/25/16 at 17:30 Piperacillin Sod/ Tazobactam Sod (Zosyn 2.25gm/ 50ml (Pmx)) 50 ml @ 100 mls/hr Q8 IVPB ; Start 06/25/16 at 22:00 Kash Ghosh DO Jun 25, 2016 18:07
[2016-06-25] MEDS ORDERED: MAGNESIUM SULFATE 1 GM/D5W 100 ML IVPB ONE (18:30)
[2016-06-25] MEDS: PIPER-TAZO 2.25 GM (PMX) 50 ML IVPB SCH (21:07)
[2016-06-26] VITALS (36 sets, daily range): BP systolic 89–134; BP diastolic 57–74; PULSE 60–78; RESP 12–17
[2016-06-26] MEDS: LACTATED RINGER'S 1,000 ML IV SCH ×2 (00:16→16:07)
[2016-06-26] MEDS: ARTIFICIAL TEARS 15 ML OPH BOTH EYES SCH ×4 (00:17→17:20)
[2016-06-26] MEDS: OCULAR LUBRICANT 3.5 GM OPH OINT BOTH EYES SCH ×4 (00:17→17:20)
[2016-06-26] MEDS: INSULIN ASPART [NOVOLOG] 3 ML PEN SC SCH ×6 (01:23→21:41)
[2016-06-26 04:49] LABS: ADD SCAN DIFF NO
[2016-06-26] MEDS: ACETAMINOPHEN 650MG/20.3ML CUP PO SCH ×2 (04:49→09:32)
[2016-06-26 04:55] LABS: ABNORMAL IP MESSAGE 1; BASOPHILS % 0.1 % (0.0-2.0); HEMATOCRIT 25.8 % (42.0-52.0); HEMOGLOBIN 8.5 g/dl (14.0-18.0); LYMPHOCYTES # 0.5 10^3/ul (0.8-2.9); LYMPHOCYTES % 4.6 % (15.0-51.0); MEAN CORPUSCULAR HGB CONC 32.9 g/dl (32.0-37.0); MEAN CORPUSCULAR VOLUME 91.2 fl (82.0-101.0); MEAN PLATELET VOLUME 12.4 fl (7.4-10.4); MONOCYTE # 0.5 10^3/ul (0.3-0.9); MONOCYTES % 5.1 % (0.0-11.0); NEUTROPHIL # 8.8 10^3/ul (1.6-7.5); NEUTROPHILS % 88.8 % (39.0-77.0); PLATELET COUNT 122 10^3/UL (140-415); RED BLOOD COUNT 2.83 10^6/ul (4.70-6.10); RED CELL DISTRIBUTION WIDTH 18.9 % (11.5-14.5); WHITE BLOOD COUNT 9.9 10^3/ul (4.8-10.8)
[2016-06-26 05:18] LABS: ALBUMIN 2.4 g/dl (3.3-4.9); ALBUMIN/GLOBULIN RATIO 1.04; CALCIUM 7.4 mg/dl (8.4-10.2); CREATININE 2.62 mg/dl (0.61-1.24); POTASSIUM 3.8 mmol/L (3.5-5.1); TOTAL PROTEIN 4.7 g/dl (6.1-8.1)
[2016-06-26] MEDS: PANTOPRAZOLE 40 MG INJ IV SCH (05:55)
[2016-06-26] MEDS: PIPER-TAZO 2.25 GM (PMX) 50 ML IVPB SCH ×3 (05:55→21:41)
[2016-06-26] MEDS: POTASSIUM CHLORIDE 50 ML IVPB PRN (06:40)
--- NOTE | 2016-06-26 08:23 | PN ---
Date/Time of Note Date/Time of Note DATE: 06/26/16 TIME: 08:20 Assessment/Plan VTE Prophylaxis VTE Prophylaxis Intervention: contraindicated Lines/Catheters IV Catheter Type (from [facility]): Central Line Central line still needed: Yes Urinary Cath still in place: Yes Reason Cath still needed: terminal illness/intractable pain Assessment/Plan Problems: (1) Pneumococcal sepsis Status: Acute Comment: This is not a monitor this is not a drug resistant bacterium he is on appropriate antibiotics for the situation. All blood cultures are positive for pneumococci. The shock has resolved. (2) Acute on chronic renal insufficiency Status: Acute Comment: His renal function has deteriorated further but not at the rate expect and I believe he will start to turn around. (3) Non-ST elevation [place] (NSTEMI) Status: Acute Comment: Noted due to the stress of the situation and shock (4) Gram-positive septic shock Status: Acute Comment: He is status post hypothermia protocol and is not showing meaningful signs recovery at this moment. We will asked neurology to see the patient but I am extremely concerned for a bad outcome here. 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 No gag reflex no corneal no response to noxious stimuli Neck: non-tender, supple Respiratory: clear to auscultation, normal air movement Cardiovascular: nl pulses, regular rate and rhythm Gastrointestinal: nl liver, spleen, non-tender, soft Results Result Diagram: 06/26/16 0400 06/26/16 0400 Results 24 hrs Laboratory Tests Test 06/25/16 10:20 06/25/16 13:05 06/25/16 16:52 06/25/16 21:26 Bedside Glucose 81 107 98 129 Test 06/26/16 01:16 06/26/16 04:00 06/26/16 04:56 Bedside Glucose 160 144 White Blood Count 9.9 Red Blood Count 2.83 L Hemoglobin 8.5 L Hematocrit 25.8 L Mean Corpuscular Volume 91.2 Mean Corpuscular Hemoglobin 30.0 Mean Corpuscular Hemoglobin Concent 32.9 Red Cell Distribution Width 18.9 H Platelet Count 122 L Mean Platelet Volume 12.4 H Neutrophils % 88.8 H Lymphocytes % 4.6 L Monocytes % 5.1 Eosinophils % 0.0 Basophils % 0.1 Nucleated Red Blood Cells % 0.0 Neutrophils # 8.8 H Lymphocytes # 0.5 L Monocytes # 0.5 Eosinophils # 0.0 Basophils # 0.0 Nucleated Red Blood Cells # 0.0 Erythrocyte Sedimentation Rate 68 H Sodium Level 143 Potassium Level 3.8 Chloride Level 113 H Carbon Dioxide Level 20 L Anion Gap 14 Blood Urea Nitrogen 59 H Creatinine 2.62 H Glucose Level 129 Lactic Acid Level 0.9 Calcium Level 7.4 L Total Bilirubin 0.0 L Direct Bilirubin 0.00 Indirect Bilirubin 0.0 Aspartate Amino Transf (AST/SGOT) 404 H Alanine Aminotransferase (ALT/SGPT) 424 H Alkaline Phosphatase 46 Total Protein 4.7 L Albumin 2.4 L Globulin 2.30 Albumin/Globulin Ratio 1.04 Amylase Level 231 H Lipase 1910 H Medications Medications Current Medications Acetaminophen (Tylenol Supp) 650 mg Q4H PRN [place] TEMP > 37C; Start 06/23/16 at 16 :00 Acetaminophen (Tylenol Liquid) 650 mg Q4H PRN PO TEMP > 37C; Start 06/23/16 at 16:00 Acetaminophen (Tylenol Liquid) 500 mg Q6H PO Last administered on 06/26/16 04: 49; Admin Dose 500 MG; Start 06/24/16 at 16:00 Eye Lubricant (Akwa Oint) 1 applic Q6 BOTH EYES Last administered on 06/26/16 05:55; Admin Dose 1 APPLIC; Start 06/23/16 at 18:00 Eye Lubricant 2 drop 2 drop Q6 BOTH EYES Last administered on 06/26/16 05:55; Admin Dose 2 DROP; Start 06/23/16 at 18:00 Lactated Ringer's 1,000 ml @ 75 mls/hr [id number] IV Last administered on 00:16; Admin Dose 75 MLS/HR; Start 06/23/16 at 18:00 Midazolam HCl (Versed) 50 ml @ 1 mls/hr TITRATE IV Last administered on 20:50; Admin Dose 5 MLS/HR; Start 06/23/16 at 23:00 Pantoprazole (Protonix Iv) 40 mg DAILY@06 IV Last administered on 06/26/16 05: 55; Admin Dose 40 MG; Start 06/25/16 at 06:00 Insulin Aspart (Novolog Insulin Pen) NOVOLOG *MILD* ALGORI... Q4 SC Last administered on 06/26/16 04:59; Admin Dose 1 UNIT; Start 06/25/16 at 13:00 Miscellaneous Information 1 ea NOTE XX ; Start 06/25/16 at 13:30 Glucose (Glutose) 15 gm Q15M PRN PO DECREASED GLUCOSE; Start 06/25/16 at 13:30 Glucose (Glutose) 22.5 gm Q15M PRN PO DECREASED GLUCOSE; Start 06/25/16 at 13: 30 Dextrose (D50w Syringe) 25 ml Q15M PRN IV DECREASED GLUCOSE; Start 06/25/16 at 13:30 Dextrose (D50w Syringe) 50 ml Q15M PRN IV DECREASED GLUCOSE; Start 06/25/16 at 13:30 Glucagon (Glucagen) 1 mg Q15M PRN IM DECREASED GLUCOSE; Start 06/25/16 at 13:30 Glucose 15 gm 15 gm Q15M PRN BUCCAL DECREASED GLUCOSE; Start 06/25/16 at 13:30 Norepinephrine 16 mg/Dextrose 500 ml @ 1.87 mls/hr TITRATE IV ; Start 06/25/16 at 17:30 Piperacillin Sod/ Tazobactam Sod (Zosyn 2.25gm/ 50ml (Pmx)) 50 ml @ 100 mls/hr Q8 IVPB Last administered on 06/26/16 05:55; Admin Dose 100 MLS/HR; Start at 22:00 RAJAT CASTRO MD Jun 26, 2016 08:22
[2016-06-26 10:26] LABS: AADO2 Arterial 69.8 mmHg (7.0-24.0); Arterial Base Excess -5.5 mmol/L (-3.0-3); Arterial COHb 0.2 % (0.0-3.0); Arterial Fraction of Oxyhgb 96.6 % (93.0-99.0); Arterial HCO3 18.9 mmol/L (22.0-26.0); Arterial MetHb 0.3 % (0.0-1.5); Arterial Total Hemglobin 9.6 g/dl (12.0-18.0); MODE VENT - AC
--- NOTE | 2016-06-26 10:55 | CONS ---
Date/Time of Note Date/Time of Note DATE: 06/26/16 TIME: 10:53 Consult Date/Type/Reason Admit Date/Time Jun 23, 2016 at 14:02 Type of Consultation: pulmonary Subjective Patient now status post hypothermia protocol Remains unresponsive on mechanical ventilation with no sedation no gag reflexes no pupillary response Currently not requiring vasopressors Objective Vital Signs Date Time Temp Pulse Resp B/P Pulse Ox O2 Delivery O2 Flow Rate FiO2 06/26/16 09:00 71 14 127/71 100 Mechanical Ventilator 06/26/16 08:00 97.5 06/26/16 08:00 30 Intake and Output 06/25/16 06/25/16 06/26/16 15:00 23:00 07:00 Intake Total 1467.50 ml 965 ml 935 ml Output Total 75 ml 161 ml 164 ml Balance 1392.50 ml 804 ml 771 ml Exam PHYSICAL EXAMINATION: GENERAL: Elderly-appearing gentleman, intubated on mechanical ventilation, appears comfortable at rest, no acute distress. Unreactive pupils no gag reflex VITAL SIGNS: As above NECK: Supple. No JVD or lymphadenopathy. CARDIAC: S1, S2, no added sounds or murmurs. CHEST: Diminished air entry bilaterally. ABDOMEN: Soft, nontender. No guarding or rebound. EXTREMITIES: No cyanosis, clubbing, 1+ edema. NEUROLOGIC: Unable to assess. Results/Medications Result Diagram: 06/26/16 0400 06/26/16 0400 Results 24 hrs Laboratory Tests Test 06/25/16 13:05 06/25/16 16:52 06/25/16 21:26 06/26/16 01:16 Bedside Glucose 107 98 129 160 Test 06/26/16 04:00 06/26/16 04:56 06/26/16 09:23 06/26/16 10:10 White Blood Count 9.9 Red Blood Count 2.83 L Hemoglobin 8.5 L Hematocrit 25.8 L Mean Corpuscular Volume 91.2 Mean Corpuscular Hemoglobin 30.0 Mean Corpuscular Hemoglobin Concent 32.9 Red Cell Distribution Width 18.9 H Platelet Count 122 L Mean Platelet Volume 12.4 H Neutrophils % 88.8 H Lymphocytes % 4.6 L Monocytes % 5.1 Eosinophils % 0.0 Basophils % 0.1 Nucleated Red Blood Cells % 0.0 Neutrophils # 8.8 H Lymphocytes # 0.5 L Monocytes # 0.5 Eosinophils # 0.0 Basophils # 0.0 Nucleated Red Blood Cells # 0.0 Erythrocyte Sedimentation Rate 68 H Sodium Level 143 Potassium Level 3.8 Chloride Level 113 H Carbon Dioxide Level 20 L Anion Gap 14 Blood Urea Nitrogen 59 H Creatinine 2.62 H Glucose Level 129 Lactic Acid Level 0.9 Calcium Level 7.4 L Total Bilirubin 0.0 L Direct Bilirubin 0.00 Indirect Bilirubin 0.0 Aspartate Amino Transf (AST/SGOT) 404 H Alanine Aminotransferase (ALT/SGPT) 424 H Alkaline Phosphatase 46 Total Protein 4.7 L Albumin 2.4 L Globulin 2.30 Albumin/Globulin Ratio 1.04 Amylase Level 231 H Lipase 1910 H Bedside Glucose 144 157 Blood Gas Specimen Source Blood arterial Arterial Blood Date Drawn 06/26/2016 10:15:52 AM Arterial Blood pH (Temp corrected) 7.378 Arterial Blood pCO2 (Temp correct) 32.9 L Arterial Blood pO2 (Temp corrected) 105.4 H Arterial Blood HCO3 18.9 L Arterial Blood Base Excess -5.5 L Arterial Blood Oxygen Saturation 97.1 Dexter Test N/A Arterial Blood Gas Puncture Site Right Brachial Arterial Blood Carboxyhemoglobin 0.2 Arterial Blood Methemoglobin 0.3 Blood Gas A-a O2 Differential 69.8 H Oxyhemoglobin Percent 96.6 Total Hemoglobin 9.6 L Blood Gas Temperature 37.0 Blood Gas Respiration Rate 14.0 Blood Gas Actual Respiration Rate 14 Blood Gas Modality VENT - AC FiO2 30.0 Blood Gas Tidal Volume 550.0 Blood Gas Low PEEP Setting 5.0 Blood Gas Notified Whom JLD Blood Gas Notified Time 06/26/2016 10:26:47 AM Medications Current Medications Acetaminophen (Tylenol Supp) 650 mg Q4H PRN [place] TEMP > 37C; Start 06/23/16 at 16 :00 Acetaminophen (Tylenol Liquid) 650 mg Q4H PRN PO TEMP > 37C; Start 06/23/16 at 16:00 Eye Lubricant (Akwa Oint) 1 applic Q6 BOTH EYES Last administered on 06/26/16 05:55; Admin Dose 1 APPLIC; Start 06/23/16 at 18:00 Eye Lubricant 2 drop 2 drop Q6 BOTH EYES Last administered on 06/26/16 05:55; Admin Dose 2 DROP; Start 06/23/16 at 18:00 Lactated Ringer's 1,000 ml @ 75 mls/hr [id number] IV Last administered on 00:16; Admin Dose 75 MLS/HR; Start 06/23/16 at 18:00 Midazolam HCl (Versed) 50 ml @ 1 mls/hr TITRATE IV Last administered on 20:50; Admin Dose 5 MLS/HR; Start 06/23/16 at 23:00 Pantoprazole (Protonix Iv) 40 mg DAILY@06 IV Last administered on 06/26/16 05: 55; Admin Dose 40 MG; Start 06/25/16 at 06:00 Insulin Aspart (Novolog Insulin Pen) NOVOLOG *MILD* ALGORI... Q4 SC Last administered on 06/26/16 09:25; Admin Dose 1 UNIT; Start 06/25/16 at 13:00 Miscellaneous Information 1 ea NOTE XX ; Start 06/25/16 at 13:30 Glucose (Glutose) 15 gm Q15M PRN PO DECREASED GLUCOSE; Start 06/25/16 at 13:30 Glucose (Glutose) 22.5 gm Q15M PRN PO DECREASED GLUCOSE; Start 06/25/16 at 13: 30 Dextrose (D50w Syringe) 25 ml Q15M PRN IV DECREASED GLUCOSE; Start 06/25/16 at 13:30 Dextrose (D50w Syringe) 50 ml Q15M PRN IV DECREASED GLUCOSE; Start 06/25/16 at 13:30 Glucagon (Glucagen) 1 mg Q15M PRN IM DECREASED GLUCOSE; Start 06/25/16 at 13:30 Glucose 15 gm 15 gm Q15M PRN BUCCAL DECREASED GLUCOSE; Start 06/25/16 at 13:30 Norepinephrine 16 mg/Dextrose 500 ml @ 1.87 mls/hr TITRATE IV ; Start 06/25/16 at 17:30 Piperacillin Sod/ Tazobactam Sod (Zosyn 2.25gm/ 50ml (Pmx)) 50 ml @ 100 mls/hr Q8 IVPB Last administered on 06/26/16 05:55; Admin Dose 100 MLS/HR; Start at 22:00 Assessment/Plan Chief Complaint/Hosp Course IMPRESSION 1. Cardiopulmonary arrest. With spontaneous return of circulation status post hypothermia protocol. 2. Probable anoxic brain injury possible brain 3. Evidence of early rhabdomyolysis with renal insufficiency. Improving 4. Possible aspiration pneumonia PLAN: 1. Continue mechanical ventilation. 2. Apnea testing and EEG 3. Antibiotics for possible aspiration pneumonia. 4. Continue volume resuscitation 5. DVT and GI prophylaxis. 6. Neurology recommendations Disposition Continue ICU care Discussed with primary care team and nursing staff Critical care time 35 minutes Problems: SHAHNAZ HAIRSTON MD, [facility] Jun 26, 2016 10:55
--- NOTE | 2016-06-26 14:11 | CONS ---
Date/Time of Note Date/Time of Note DATE: 06/26/16 TIME: 14:09 Assessment/Plan Assessment/Plan Additional Assessment/Plan Severe sepsis Vent dependent respiratory failure Status post cardiac arrest Cardiomyopathy Pneumonia -Blood pressure trend remained stable. No significant arrhythmias seen on telemetry. Would start aspirin therapy if no contraindication. Blood pressure remained stable and heart rate, with start beta-hellen. Consultation Date/Type/Reason Admit Date/Time Jun 23, 2016 at 14:02 Type of Consultation: cv 24 HR Interval Summary Free Text/Dictation Patient seen and examined Exam/Review of Systems Vital Signs Vitals Vital Signs Date Time Temp Pulse Resp B/P Pulse Ox O2 Delivery O2 Flow Rate FiO2 06/26/16 13:00 71 14 134/74 100 Mechanical Ventilator 06/26/16 12:00 97.5 06/26/16 11:45 30 Intake and Output 06/25/16 06/25/16 06/26/16 15:00 23:00 07:00 Intake Total 1467.50 ml 965 ml 935 ml Output Total 75 ml 161 ml 164 ml Balance 1392.50 ml 804 ml 771 ml Exam No apparent distress, no response to verbal stimuli Head: normocephalic ENMT: intubated Respiratory: other (Coarse breath sounds bilaterally, no wheezing) Cardiovascular: other (S1-S2 heard), regular rate and rhythm Gastrointestinal: bowel sounds, other (No grimacing with palpation), soft Extremities: edema Results Result Diagram: 06/26/16 0400 06/26/16 0400 Results 24 hrs Laboratory Tests Test 06/25/16 16:52 06/25/16 21:26 06/26/16 01:16 06/26/16 04:00 Bedside Glucose 98 129 160 White Blood Count 9.9 Red Blood Count 2.83 L Hemoglobin 8.5 L Hematocrit 25.8 L Mean Corpuscular Volume 91.2 Mean Corpuscular Hemoglobin 30.0 Mean Corpuscular Hemoglobin Concent 32.9 Red Cell Distribution Width 18.9 H Platelet Count 122 L Mean Platelet Volume 12.4 H Neutrophils % 88.8 H Lymphocytes % 4.6 L Monocytes % 5.1 Eosinophils % 0.0 Basophils % 0.1 Nucleated Red Blood Cells % 0.0 Neutrophils # 8.8 H Lymphocytes # 0.5 L Monocytes # 0.5 Eosinophils # 0.0 Basophils # 0.0 Nucleated Red Blood Cells # 0.0 Erythrocyte Sedimentation Rate 68 H Sodium Level 143 Potassium Level 3.8 Chloride Level 113 H Carbon Dioxide Level 20 L Anion Gap 14 Blood Urea Nitrogen 59 H Creatinine 2.62 H Glucose Level 129 Lactic Acid Level 0.9 Calcium Level 7.4 L Total Bilirubin 0.0 L Direct Bilirubin 0.00 Indirect Bilirubin 0.0 Aspartate Amino Transf (AST/SGOT) 404 H Alanine Aminotransferase (ALT/SGPT) 424 H Alkaline Phosphatase 46 Total Protein 4.7 L Albumin 2.4 L Globulin 2.30 Albumin/Globulin Ratio 1.04 Amylase Level 231 H Lipase 1910 H Test 06/26/16 04:56 06/26/16 09:23 06/26/16 10:10 06/26/16 12:21 Bedside Glucose 144 157 160 Blood Gas Specimen Source Blood arterial Arterial Blood Date Drawn 06/26/2016 10:15:52 AM Arterial Blood pH (Temp corrected) 7.378 Arterial Blood pCO2 (Temp correct) 32.9 L Arterial Blood pO2 (Temp corrected) 105.4 H Arterial Blood HCO3 18.9 L Arterial Blood Base Excess -5.5 L Arterial Blood Oxygen Saturation 97.1 Dexter Test N/A Arterial Blood Gas Puncture Site Right Brachial Arterial Blood Carboxyhemoglobin 0.2 Arterial Blood Methemoglobin 0.3 Blood Gas A-a O2 Differential 69.8 H Oxyhemoglobin Percent 96.6 Total Hemoglobin 9.6 L Blood Gas Temperature 37.0 Blood Gas Respiration Rate 14.0 Blood Gas Actual Respiration Rate 14 Blood Gas Modality VENT - AC FiO2 30.0 Blood Gas Tidal Volume 550.0 Blood Gas Low PEEP Setting 5.0 Blood Gas Notified Whom JLD Blood Gas Notified Time 06/26/2016 10:26:47 AM Medications Medications Current Medications Acetaminophen (Tylenol Supp) 650 mg Q4H PRN [place] TEMP > 37C; Start 06/23/16 at 16 :00 Acetaminophen (Tylenol Liquid) 650 mg Q4H PRN PO TEMP > 37C; Start 06/23/16 at 16:00 Eye Lubricant (Akwa Oint) 1 applic Q6 BOTH EYES Last administered on 06/26/16 12:20; Admin Dose 1 APPLIC; Start 06/23/16 at 18:00 Eye Lubricant 2 drop 2 drop Q6 BOTH EYES Last administered on 06/26/16 12:20; Admin Dose 2 DROP; Start 06/23/16 at 18:00 Lactated Ringer's 1,000 ml @ 75 mls/hr [id number] IV Last administered on 00:16; Admin Dose 75 MLS/HR; Start 06/23/16 at 18:00 Midazolam HCl (Versed) 50 ml @ 1 mls/hr TITRATE IV Last administered on 20:50; Admin Dose 5 MLS/HR; Start 06/23/16 at 23:00 Pantoprazole (Protonix Iv) 40 mg DAILY@06 IV Last administered on 06/26/16 05: 55; Admin Dose 40 MG; Start 06/25/16 at 06:00 Insulin Aspart (Novolog Insulin Pen) NOVOLOG *MILD* ALGORI... Q4 SC Last administered on 06/26/16 12:23; Admin Dose 1 UNIT; Start 06/25/16 at 13:00 Miscellaneous Information 1 ea NOTE XX ; Start 06/25/16 at 13:30 Glucose (Glutose) 15 gm Q15M PRN PO DECREASED GLUCOSE; Start 06/25/16 at 13:30 Glucose (Glutose) 22.5 gm Q15M PRN PO DECREASED GLUCOSE; Start 06/25/16 at 13: 30 Dextrose (D50w Syringe) 25 ml Q15M PRN IV DECREASED GLUCOSE; Start 06/25/16 at 13:30 Dextrose (D50w Syringe) 50 ml Q15M PRN IV DECREASED GLUCOSE; Start 06/25/16 at 13:30 Glucagon (Glucagen) 1 mg Q15M PRN IM DECREASED GLUCOSE; Start 06/25/16 at 13:30 Glucose 15 gm 15 gm Q15M PRN BUCCAL DECREASED GLUCOSE; Start 06/25/16 at 13:30 Norepinephrine 16 mg/Dextrose 500 ml @ 1.87 mls/hr TITRATE IV ; Start 06/25/16 at 17:30 Piperacillin Sod/ Tazobactam Sod (Zosyn 2.25gm/ 50ml (Pmx)) 50 ml @ 100 mls/hr Q8 IVPB Last administered on 06/26/16 05:55; Admin Dose 100 MLS/HR; Start at 22:00 Kash Ghosh DO Jun 26, 2016 14:11
[2016-06-26] MEDS: ASPIRIN 81 MG TAB NGT SCH (16:00)
[2016-06-26] MEDS: METOPROLOL 25 MG TAB PO SCH ×2 (16:14→23:00)
[2016-06-27] VITALS (29 sets, daily range): BP systolic 92–117; BP diastolic 52–70; PULSE 0–150; RESP 0–15
[2016-06-27] MEDS: ARTIFICIAL TEARS 15 ML OPH BOTH EYES SCH ×4 (00:26→17:08)
[2016-06-27] MEDS: OCULAR LUBRICANT 3.5 GM OPH OINT BOTH EYES SCH ×4 (00:26→17:08)
[2016-06-27] MEDS: INSULIN ASPART [NOVOLOG] 3 ML PEN SC SCH ×5 (00:28→16:59)
[2016-06-27 02:49] LABS: ADD SCAN DIFF NO
[2016-06-27 02:50] LABS: ABNORMAL IP MESSAGE 1; HEMATOCRIT 25.9 % (42.0-52.0); HEMOGLOBIN 8.9 g/dl (14.0-18.0); MEAN CORPUSCULAR HEMOGLOBIN 31.1 pg (29.0-33.0); MEAN CORPUSCULAR HGB CONC 34.4 g/dl (32.0-37.0); MEAN CORPUSCULAR VOLUME 90.6 fl (82.0-101.0); MEAN PLATELET VOLUME 11.5 fl (7.4-10.4); PLATELET COUNT 122 10^3/UL (140-415); RED BLOOD COUNT 2.86 10^6/ul (4.70-6.10); RED CELL DISTRIBUTION WIDTH 19.4 % (11.5-14.5); WHITE BLOOD COUNT 9.2 10^3/ul (4.8-10.8)
[2016-06-27 02:58] LABS: CREATININE 2.55 mg/dl (0.61-1.24)
[2016-06-27 02:59] LABS: CALCIUM 8.2 mg/dl (8.4-10.2)
--- NOTE | 2016-06-27 03:16 | CONS ---
DATE OF ADMISSION: 06/23/2016 DATE OF CONSULTATION: 06/26/2016 NEUROLOGICAL CONSULTATION Thank you, Dr. 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 HISTORY OF PRESENT ILLNESS: The patient is an 85-year-old gentleman who was admitted on 06/23/2016 following cardiopulmonary arrest at home. According to ER note, patient was unresponsive, found in pulseless electrical activity by paramedics. It does not state for how long. The patient was placed on hypothermia per protocol. Currently, his ongoing medical problems include severe encephalopathy of sedation. Sepsis, acute on chronic renal insufficiency, nonST elevation myocardial infarction, status post septic shock, diabetes. Earlier today an attempt was made to do apnea test. He was apneic for about 7 minutes but developed hypertension and tachycardia and apnea test was aborted though during this 7 minutes, he did not have any respiratory movements. I do not see if repeat ABG/pCO2 was obtained. CURRENT MEDICATIONS: 1. Aspirin. 2. Lopressor. 3. Zosyn. 4. Norepinephrine. 5. Insulin. 6. Protonix. ALLERGIES: NONE. SOCIAL HISTORY: No alcohol, tobacco, drug use. FAMILY HISTORY: Noncontributory. REVIEW OF SYSTEMS: Unable to obtain currently. PHYSICAL EXAMINATION VITAL SIGNS: Temperature 97.3, pulse 70, respirations 14, blood pressure 92/64. GENERAL: The patient is not in acute distress. HEENT: Normocephalic, atraumatic head. Intubated orally. NECK: Supple. LUNGS: Coarse breath sounds. CARDIAC: Normal cardiac rhythm and sounds. ABDOMEN: Soft. EXTREMITIES: Mildly edematous. NEUROLOGIC: Shows patient is unresponsive, eyes closed. No response to voice commands, pain or visual threat. Pupils fixed about 1 mm bilaterally. Extraocular movements absent. Symmetrical face. No corneal reflexes. No gag. Flaccid extremities. No movements to noxious stimuli. No reflexes. No response to plantar stimulation. LABORATORY DATA: Patient's labs show anemia 8.5, hemoglobin 25.8, hematocrit, neutrophils 90%. PT 18, PTT 35. Chemistry shows chloride 113, bicarbonate 20, BUN 59, creatinine 2.62, AST 404, ALT 424, total protein 4.7, albumin 2.4, amylase 231, lipase 1900. IMPRESSION: An 85-year-old gentleman: 1. Status post cardiopulmonary arrest. 2. Acute on chronic renal failure. 3. Sepsis. 4. Myocardial infarction. 5. Severe encephalopathy. There are no signs of brain function on examination so examination is consistent with brain , though additional testing such as apnea test or secondary testing with EEG or perfusion study would be needed to exclude brain and for further evaluation of encephalopathy. I will request EEG to be done. In any case, it is already third day, patient shows no signs of improvement of his neurological status and even if he were not brain , he has extremely poor prognosis, essentially grave prognosis for recovery. Thank you very much for this interesting consultation. Continue current treatment. Dictated By: DUNG FERNANDEZ/DEVON Conf#: [id number] DID#: [id number] MTDD
[2016-06-27 03:25] LABS: LYMPHOCYTES # 0.6 10^3/ul (0.8-2.9); MONOCYTE # 0.6 10^3/ul (0.3-0.9); NEUTROPHIL # 7.8 10^3/ul (1.6-7.5); PLATELET ESTIMATE PLT APPEAR DECREASED
[2016-06-27] MEDS: PANTOPRAZOLE 40 MG INJ IV SCH (05:19)
[2016-06-27] MEDS: LACTATED RINGER'S 1,000 ML IV SCH ×2 (05:22→14:50)
[2016-06-27] MEDS: PIPER-TAZO 2.25 GM (PMX) 50 ML IVPB SCH ×2 (05:22→13:09)
[2016-06-27] MEDS ORDERED: LACTATED RINGER'S 500 ML IV ONE (08:30)
--- NOTE | 2016-06-27 08:32 | PN ---
Date/Time of Note Date/Time of Note DATE: 06/27/16 TIME: 08:28 Assessment/Plan VTE Prophylaxis VTE Prophylaxis Intervention: heparin Lines/Catheters IV [facility] Type [facility] Central Line Central line still needed: Yes Urinary Cath still in place: Yes Reason Cath still needed: terminal illness/intractable pain Assessment/Plan Problems: (1) Anoxic brain injury Status: Acute Comment: He had an apnea test yesterday that he failed. Neurology is seeing him as ordered an EEG which is pending at this moment. Regrettably it appears that he has no meaningful brain function. If by some chance there is minimal activity on the EEG this would not change the fact that his prognosis is dismal under the best of circumstances (2) Pneumococcal sepsis Status: Acute Comment: Remains on antibiotics appropriate to the circumstances. His hypotension had resolved although I believe he is modestly dry (3) Cardiac arrest Status: Acute Comment: This was caused by the pneumococcal septicemia with septic shock. We have a bad outcome with the neurologic function (4) Normocytic anemia Status: Acute Comment: Noted no indication to treat (5) Acute on chronic renal insufficiency Status: Acute Comment: Is modestly dry I will go ahead and give him a fluid bolus per (6) Hyperlipidemia Status: Chronic Comment: Noted Qualifiers: Hyperlipidemia type: pure hypercholesterolemia Qualified Code: E78.00 - Pure hypercholesterolemia (7) Diabetes mellitus type 2 in nonobese Status: Chronic Comment: Good sugar control Subjective 24 Hr Interval Summary Subjective hx not possible: pt non-verbal Exam/Review of Systems Vital Signs Vitals Vital Signs Date Time Temp Pulse Resp B/P Pulse Ox O2 Delivery O2 Flow Rate FiO2 06/27/16 08:18 76 14 100 30 06/27/16 05:00 104/67 Mechanical Ventilator 06/27/16 04:00 98.2 Intake and Output 06/26/16 06/26/16 06/27/16 14:59 22:59 06:59 Intake Total 440 ml 695 ml 1130 ml Output Total 424 ml 190 ml 360 ml Balance 16 ml 505 ml 770 ml Exam Nonresponsive no blink reflex no corneal reflex no gag reflex no response to noxious stimuli Constitutional: non-verbal Neck: non-tender, supple Respiratory: clear to auscultation, normal air movement Cardiovascular: nl pulses, regular rate and rhythm Results Result Diagram: 06/27/16 0230 06/27/16 0230 Results 24 hrs Laboratory Tests Test 06/26/16 09:23 06/26/16 10:10 06/26/16 12:21 06/26/16 16:54 Bedside Glucose 157 160 166 Blood Gas Specimen Source Blood arterial Arterial Blood Date Drawn 06/26/2016 10:15:52 AM Arterial Blood pH (Temp corrected) 7.378 Arterial Blood pCO2 (Temp correct) 32.9 L Arterial Blood pO2 (Temp corrected) 105.4 H Arterial Blood HCO3 18.9 L Arterial Blood Base Excess -5.5 L Arterial Blood Oxygen Saturation 97.1 Dexter Test N/A Arterial Blood Gas Puncture Site Right Brachial Arterial Blood Carboxyhemoglobin 0.2 Arterial Blood Methemoglobin 0.3 Blood Gas A-a O2 Differential 69.8 H Oxyhemoglobin Percent 96.6 Total Hemoglobin 9.6 L Blood Gas Temperature 37.0 Blood Gas Respiration Rate 14.0 Blood Gas Actual Respiration Rate 14 Blood Gas Modality VENT - AC FiO2 30.0 Blood Gas Tidal Volume 550.0 Blood Gas Low PEEP Setting 5.0 Blood Gas Notified Whom JLD Blood Gas Notified Time 06/26/2016 10:26:47 AM Test 06/26/16 21:34 06/27/16 00:25 06/27/16 02:30 06/27/16 05:18 Bedside Glucose 152 154 145 White Blood Count 9.2 Red Blood Count 2.86 L Hemoglobin 8.9 L Hematocrit 25.9 L Mean Corpuscular Volume 90.6 Mean Corpuscular Hemoglobin 31.1 Mean Corpuscular Hemoglobin Concent 34.4 Red Cell Distribution Width 19.4 H Platelet Count 122 L Mean Platelet Volume 11.5 H Neutrophils % 85.0 H Band Neutrophils % 2.0 Lymphocytes % 7.0 L Monocytes % 6.0 Nucleated Red Blood Cells % 1.0 H Neutrophils # 7.8 H Lymphocytes # 0.6 L Monocytes # 0.6 Platelet Estimate PLT APPEAR DECREASED Sodium Level 146 H Potassium Level 4.0 Chloride Level 111 H Carbon Dioxide Level 23 Anion Gap 16 Blood Urea Nitrogen 65 H Creatinine 2.55 H Glucose Level 150 Calcium Level 8.2 L Ionized Calcium (Measured) 1.2 Phosphorus Level 4.5 # Magnesium Level 2.5 # Amylase Level 239 H Lipase 1466 H Medications Medications Current Medications Acetaminophen (Tylenol Supp) 650 mg Q4H PRN [place] TEMP > 37C; Start 06/23/16 at 16 :00 Acetaminophen (Tylenol Liquid) 650 mg Q4H PRN PO TEMP > 37C; Start 06/23/16 at 16:00 Eye Lubricant (Akwa Oint) 1 applic Q6 BOTH EYES Last administered on 06/27/16 05:21; Admin Dose 1 APPLIC; Start 06/23/16 at 18:00 Eye Lubricant 2 drop 2 drop Q6 BOTH EYES Last administered on 06/27/16 05:19; Admin Dose 2 DROP; Start 06/23/16 at 18:00 Lactated Ringer's 1,000 ml @ 75 mls/hr [id number] IV Last administered on 05:22; Admin Dose 75 MLS/HR; Start 06/23/16 at 18:00 Midazolam HCl (Versed) 50 ml @ 1 mls/hr TITRATE IV Last administered on 20:50; Admin Dose 5 MLS/HR; Start 06/23/16 at 23:00 Pantoprazole (Protonix Iv) 40 mg DAILY@06 IV Last administered on 06/27/16 05: 19; Admin Dose 40 MG; Start 06/25/16 at 06:00 Insulin Aspart (Novolog Insulin Pen) NOVOLOG *MILD* ALGORI... Q4 SC Last administered on 06/27/16 05:24; Admin Dose 1 UNIT; Start 06/25/16 at 13:00 Miscellaneous Information 1 ea NOTE XX ; Start 06/25/16 at 13:30 Glucose (Glutose) 15 gm Q15M PRN PO DECREASED GLUCOSE; Start 06/25/16 at 13:30 Glucose (Glutose) 22.5 gm Q15M PRN PO DECREASED GLUCOSE; Start 06/25/16 at 13: 30 Dextrose (D50w Syringe) 25 ml Q15M PRN IV DECREASED GLUCOSE; Start 06/25/16 at 13:30 Dextrose (D50w Syringe) 50 ml Q15M PRN IV DECREASED GLUCOSE; Start 06/25/16 at 13:30 Glucagon (Glucagen) 1 mg Q15M PRN IM DECREASED GLUCOSE; Start 06/25/16 at 13:30 Glucose 15 gm 15 gm Q15M PRN BUCCAL DECREASED GLUCOSE; Start 06/25/16 at 13:30 Norepinephrine 16 mg/Dextrose 500 ml @ 1.87 mls/hr TITRATE IV ; Start 06/25/16 at 17:30 Piperacillin Sod/ Tazobactam Sod (Zosyn 2.25gm/ 50ml (Pmx)) 50 ml @ 100 mls/hr Q8 IVPB Last administered on 06/27/16 05:22; Admin Dose 100 MLS/HR; Start at 22:00 Aspirin (Aspirin) 81 mg DAILY NGT Last administered on 06/26/16 16:00; Admin Dose 81 MG; Start 06/26/16 at 15:00 Metoprolol Tartrate 12.5 mg 12.5 mg BID PO Last administered on 06/26/16 16:14 ; Admin Dose 12.5 MG; Start 06/26/16 at 14:45 Lactated Ringer's (Lr) 500 ml @ 500 mls/hr Q1H ONCE IV ; Start 06/27/16 at 08: 30; Stop 06/27/16 at 09:29; Status RAJAT LAMA MD Jun 27, 2016 08:31
[2016-06-27] MEDS: METOPROLOL 25 MG TAB PO SCH (08:51)
[2016-06-27] MEDS: ASPIRIN 81 MG TAB NGT SCH (09:42)
--- NOTE | 2016-06-27 10:12 | CONS ---
Date/Time of Note Date/Time of Note DATE: 06/27/16 TIME: 09:56 Consult Date/Type/Reason Admit Date/Time Jun 23, 2016 at 14:02 Type of Consultation: pulmonary ICU Subjective Hemodynamic instability during apnea study yesterday, study was stopped. Remains unresponsive on mechanical ventilation this morning pending EEG Objective Vital Signs Date Time Temp Pulse Resp B/P Pulse Ox O2 Delivery O2 Flow Rate FiO2 06/27/16 09:21 70 14 100 30 06/27/16 05:00 104/67 Mechanical Ventilator 06/27/16 04:00 98.2 Intake and Output 06/26/16 06/26/16 06/27/16 15:00 23:00 07:00 Intake Total 460 ml 695 ml 1090 ml Output Total 385 ml 215 ml 310 ml Balance 75 ml 480 ml 780 ml Exam PHYSICAL EXAMINATION: GENERAL: Elderly-appearing gentleman, intubated on mechanical ventilation, appears comfortable at rest, no acute distress. Unreactive pupils no gag reflex VITAL SIGNS: As above NECK: Supple. No JVD or lymphadenopathy. CARDIAC: S1, S2, no added sounds or murmurs. CHEST: Diminished air entry bilaterally. ABDOMEN: Soft, nontender. No guarding or rebound. EXTREMITIES: No cyanosis, clubbing, 1+ edema. NEUROLOGIC: Unable to assess. Results/Medications Result Diagram: 06/27/16 0230 06/27/16 0230 Results 24 hrs Laboratory Tests Test 06/26/16 10:10 06/26/16 12:21 06/26/16 16:54 06/26/16 21:34 Blood Gas Specimen Source Blood arterial Arterial Blood Date Drawn 06/26/2016 10:15:52 AM Arterial Blood pH (Temp corrected) 7.378 Arterial Blood pCO2 (Temp correct) 32.9 L Arterial Blood pO2 (Temp corrected) 105.4 H Arterial Blood HCO3 18.9 L Arterial Blood Base Excess -5.5 L Arterial Blood Oxygen Saturation 97.1 Dexter Test N/A Arterial Blood Gas Puncture Site Right Brachial Arterial Blood Carboxyhemoglobin 0.2 Arterial Blood Methemoglobin 0.3 Blood Gas A-a O2 Differential 69.8 H Oxyhemoglobin Percent 96.6 Total Hemoglobin 9.6 L Blood Gas Temperature 37.0 Blood Gas Respiration Rate 14.0 Blood Gas Actual Respiration Rate 14 Blood Gas Modality VENT - AC FiO2 30.0 Blood Gas Tidal Volume 550.0 Blood Gas Low PEEP Setting 5.0 Blood Gas Notified Whom JLD Blood Gas Notified Time 06/26/2016 10:26:47 AM Bedside Glucose 160 166 152 Test 06/27/16 00:25 06/27/16 02:30 06/27/16 05:18 Bedside Glucose 154 145 White Blood Count 9.2 Red Blood Count 2.86 L Hemoglobin 8.9 L Hematocrit 25.9 L Mean Corpuscular Volume 90.6 Mean Corpuscular Hemoglobin 31.1 Mean Corpuscular Hemoglobin Concent 34.4 Red Cell Distribution Width 19.4 H Platelet Count 122 L Mean Platelet Volume 11.5 H Neutrophils % 85.0 H Band Neutrophils % 2.0 Lymphocytes % 7.0 L Monocytes % 6.0 Nucleated Red Blood Cells % 1.0 H Neutrophils # 7.8 H Lymphocytes # 0.6 L Monocytes # 0.6 Platelet Estimate PLT APPEAR DECREASED Sodium Level 146 H Potassium Level 4.0 Chloride Level 111 H Carbon Dioxide Level 23 Anion Gap 16 Blood Urea Nitrogen 65 H Creatinine 2.55 H Glucose Level 150 Calcium Level 8.2 L Ionized Calcium (Measured) 1.2 Phosphorus Level 4.5 # Magnesium Level 2.5 # Amylase Level 239 H Lipase 1466 H Medications Current Medications Acetaminophen (Tylenol Supp) [address] TEMP > 37C; Start 06/23/16 at 16 :00 Acetaminophen (Tylenol Liquid) 650 mg Q4H PRN PO TEMP > 37C; Start 06/23/16 at 16:00 Eye Lubricant (Akwa Oint) 1 applic Q6 BOTH EYES Last administered on 06/27/16 05:21; Admin Dose 1 APPLIC; Start 06/23/16 at 18:00 Eye Lubricant 2 drop 2 drop Q6 BOTH EYES Last administered on 06/27/16 05:19; Admin Dose 2 DROP; Start 06/23/16 at 18:00 Lactated Ringer's 1,000 ml @ 75 mls/hr [id number] IV Last administered on 05:22; Admin Dose 75 MLS/HR; Start 06/23/16 at 18:00 Midazolam HCl (Versed) 50 ml @ 1 mls/hr TITRATE IV Last administered on 20:50; Admin Dose 5 MLS/HR; Start 06/23/16 at 23:00 Pantoprazole (Protonix Iv) 40 mg DAILY@06 IV Last administered on 06/27/16 05: 19; Admin Dose 40 MG; Start 06/25/16 at 06:00 Insulin Aspart (Novolog Insulin Pen) NOVOLOG *MILD* ALGORI... Q4 SC Last administered on 06/27/16 09:44; Admin Dose 1 UNIT; Start 06/25/16 at 13:00 Miscellaneous Information 1 ea NOTE XX ; Start 06/25/16 at 13:30 Glucose (Glutose) 15 gm Q15M PRN PO DECREASED GLUCOSE; Start 06/25/16 at 13:30 Glucose (Glutose) 22.5 gm Q15M PRN PO DECREASED GLUCOSE; Start 06/25/16 at 13: 30 Dextrose (D50w Syringe) 25 ml Q15M PRN IV DECREASED GLUCOSE; Start 06/25/16 at 13:30 Dextrose (D50w Syringe) 50 ml Q15M PRN IV DECREASED GLUCOSE; Start 06/25/16 at 13:30 Glucagon (Glucagen) 1 mg Q15M PRN IM DECREASED GLUCOSE; Start 06/25/16 at 13:30 Glucose 15 gm 15 gm Q15M PRN BUCCAL DECREASED GLUCOSE; Start 06/25/16 at 13:30 Norepinephrine 16 mg/Dextrose 500 ml @ 1.87 mls/hr TITRATE IV ; Start 06/25/16 at 17:30 Piperacillin Sod/ Tazobactam Sod (Zosyn 2.25gm/ 50ml (Pmx)) 50 ml @ 100 mls/hr Q8 IVPB Last administered on 06/27/16 05:22; Admin Dose 100 MLS/HR; Start at 22:00 Aspirin (Aspirin) 81 mg DAILY NGT Last administered on 06/27/16 09:42; Admin Dose 81 MG; Start 06/26/16 at 15:00 Metoprolol Tartrate (Lopressor) 12.5 mg BID PO Last administered on 06/26/16 16:14; Admin Dose 12.5 MG; Start 06/26/16 at 14:45 Assessment/Plan Chief Complaint/Hosp Course IMPRESSION 1. Cardiopulmonary arrest. With spontaneous return of circulation status post hypothermia protocol. 2. Probable anoxic brain injury possible brain 3. Evidence of early rhabdomyolysis with renal insufficiency. Improving 4. Possible aspiration pneumonia PLAN: 1. Continue mechanical ventilation. 2. EEG pending 3. Antibiotics for possible aspiration pneumonia. 4. Continue volume resuscitation 5. DVT and GI prophylaxis. 6. Neurology recommendations consider cerebral perfusion study Disposition Continue ICU care Discussed with nursing staff Critical care time 35 minutes Problems: SHAHNAZ HAIRSTON MD, [facility] Jun 27, 2016 10:10
--- NOTE | 2016-06-27 12:02 | SP ---
DATE OF PROCEDURE: 06/27/2016 EEG REPORT INDICATION: An 85-year-old gentleman, status post cardiopulmonary arrest and possibly brain . DESCRIPTION OF PROCEDURE: Cerebral silence protocol EEG was recorded digitally. [id number] and [id number] montages were recorded and reviewed. All impedances were measured and recorded. Cap electrodes were placed in accordance with the International 10-20 system of electrode placement. FINDINGS: Absence of background activity was seen throughout the recording, with presence of only c ardiac, pulse and respiratory artifacts. IMPRESSION: Electrocerebral silence. In the context of the patient's clinical examination, vital s igns and laboratory data, this EEG could be used as confirmatory testing for brain . Dictated By: DUNG FERNANDEZ/DEVON Conf#: [id number] DID#: [id number]
--- NOTE | 2016-06-27 12:47 | CONS ---
Date/Time of Note Date/Time of Note DATE: 06/27/16 TIME: 12:45 Assessment/Plan Assessment/Plan Additional Assessment/Plan Severe sepsis Vent dependent respiratory failure Status post cardiac arrest Cardiomyopathy Pneumonia -Blood pressure on the lower end, would DC beta-hellen. Awaiting official EEG report. Consultation Date/Type/Reason Admit Date/Time Jun 23, 2016 at 14:02 Type of Consultation: cv 24 HR Interval Summary Free Text/Dictation Patient seen and examined Exam/Review of Systems Vital Signs Vitals Vital Signs Date Time Temp Pulse Resp B/P Pulse Ox O2 Delivery O2 Flow Rate FiO2 06/27/16 11:03 71 14 100 30 06/27/16 11:00 94/63 Mechanical Ventilator 06/27/16 08:00 99.3 Intake and Output 06/26/16 06/26/16 06/27/16 15:00 23:00 07:00 Intake Total 460 ml 695 ml 1130 ml Output Total 385 ml 215 ml 310 ml Balance 75 ml 480 ml 820 ml Exam No apparent distress, no response to verbal stimuli Head: normocephalic ENMT: intubated Respiratory: other (Coarse breath sounds bilaterally, no wheezing) Cardiovascular: other, regular rate and rhythm Gastrointestinal: bowel sounds, other (No grimacing with palpation), soft Extremities: edema (Trace) Results Result Diagram: 06/27/16 0230 06/27/16 0230 Results 24 hrs Laboratory Tests Test 06/26/16 16:54 06/26/16 21:34 06/27/16 00:25 06/27/16 02:30 Bedside Glucose 166 152 154 White Blood Count 9.2 Red Blood Count 2.86 L Hemoglobin 8.9 L Hematocrit 25.9 L Mean Corpuscular Volume 90.6 Mean Corpuscular Hemoglobin 31.1 Mean Corpuscular Hemoglobin Concent 34.4 Red Cell Distribution Width 19.4 H Platelet Count 122 L Mean Platelet Volume 11.5 H Neutrophils % 85.0 H Band Neutrophils % 2.0 Lymphocytes % 7.0 L Monocytes % 6.0 Nucleated Red Blood Cells % 1.0 H Neutrophils # 7.8 H Lymphocytes # 0.6 L Monocytes # 0.6 Platelet Estimate PLT APPEAR DECREASED Sodium Level 146 H Potassium Level 4.0 Chloride Level 111 H Carbon Dioxide Level 23 Anion Gap 16 Blood Urea Nitrogen 65 H Creatinine 2.55 H Glucose Level 150 Calcium Level 8.2 L Ionized Calcium (Measured) 1.2 Phosphorus Level 4.5 # Magnesium Level 2.5 # Amylase Level 239 H Lipase 1466 H Test 06/27/16 05:18 06/27/16 09:40 Bedside Glucose 145 176 Medications Medications Current Medications Acetaminophen (Tylenol Supp) 650 mg Q4H PRN [place] TEMP > 37C; Start 06/23/16 at 16 :00 Acetaminophen (Tylenol Liquid) 650 mg Q4H PRN PO TEMP > 37C; Start 06/23/16 at 16:00 Eye Lubricant (Akwa Oint) 1 applic Q6 BOTH EYES Last administered on 06/27/16 05:21; Admin Dose 1 APPLIC; Start 06/23/16 at 18:00 Eye Lubricant 2 drop 2 drop Q6 BOTH EYES Last administered on 06/27/16 05:19; Admin Dose 2 DROP; Start 06/23/16 at 18:00 Lactated Ringer's 1,000 ml @ 75 mls/hr [id number] IV Last administered on 05:22; Admin Dose 75 MLS/HR; Start 06/23/16 at 18:00 Midazolam HCl (Versed) 50 ml @ 1 mls/hr TITRATE IV Last administered on 20:50; Admin Dose 5 MLS/HR; Start 06/23/16 at 23:00 Pantoprazole (Protonix Iv) 40 mg DAILY@06 IV Last administered on 06/27/16 05: 19; Admin Dose 40 MG; Start 06/25/16 at 06:00 Insulin Aspart (Novolog Insulin Pen) NOVOLOG *MILD* ALGORI... Q4 SC Last administered on 06/27/16 09:44; Admin Dose 1 UNIT; Start 06/25/16 at 13:00 Miscellaneous Information 1 ea NOTE XX ; Start 06/25/16 at 13:30 Glucose (Glutose) 15 gm Q15M PRN PO DECREASED GLUCOSE; Start 06/25/16 at 13:30 Glucose (Glutose) 22.5 gm Q15M PRN PO DECREASED GLUCOSE; Start 06/25/16 at 13: 30 Dextrose (D50w Syringe) 25 ml Q15M PRN IV DECREASED GLUCOSE; Start 06/25/16 at 13:30 Dextrose (D50w Syringe) 50 ml Q15M PRN IV DECREASED GLUCOSE; Start 06/25/16 at 13:30 Glucagon (Glucagen) 1 mg Q15M PRN IM DECREASED GLUCOSE; Start 06/25/16 at 13:30 Glucose 15 gm 15 gm Q15M PRN BUCCAL DECREASED GLUCOSE; Start 06/25/16 at 13:30 Norepinephrine 16 mg/Dextrose 500 ml @ 1.87 mls/hr TITRATE IV ; Start 06/25/16 at 17:30 Piperacillin Sod/ Tazobactam Sod (Zosyn 2.25gm/ 50ml (Pmx)) 50 ml @ 100 mls/hr Q8 IVPB Last administered on 06/27/16 05:22; Admin Dose 100 MLS/HR; Start at 22:00 Aspirin (Aspirin) 81 mg DAILY NGT Last administered on 06/27/16 09:42; Admin Dose 81 MG; Start 06/26/16 at 15:00 Metoprolol Tartrate (Lopressor) 12.5 mg BID PO Last administered on 06/26/16 16:14; Admin Dose 12.5 MG; Start 06/26/16 at 14:45 Kash Ghosh DO Jun 27, 2016 12:47
--- NOTE | 2016-06-27 19:38 | DES ---
Date/Time of Note Date/Time of Note DATE: 06/27/16 TIME: 19:34 Discharge/ Summary Admission/Discharge Info Admit Date/Time Jun 23, 2016 at 14:02 Discharge Date/Time 06/27/2016 Final Diagnosis brain due to cardiac arrest. Induced by setic shock due to pneumococcal sepsis and pneumonia; DM2; HTN Preliminary Cause of septic shock Hx of Present Illness This is the first [facility] admission for this 85-year-old right-handed, male. He has a prior history of heart disease and had been at home. Apparently last night, he was having difficulty getting to the bathroom. He had tried to get up and his assisted him, but then he slumped down to the floor without loss of consciousness. The is a little bit hazy on the details, but ultimately the patient's son called and subsequently 911 was summoned. He was unresponsive and ultimately required resuscitative efforts, as delineated in the emergency room doctor's notes. He had successful resuscitation and they placed him on hypothermia protocol. At this time, he is unable to give me any type of meaningful history due to being intubated and on hypothermia protocol with sedation. Cultures came back rapidly with pneumococcal sepsis Hospital Course IMPRESSION 1. Cardiopulmonary arrest. With spontaneous return of circulation status post hypothermia protocol. 2. Probable anoxic brain injury possible brain 3. Evidence of early rhabdomyolysis with renal insufficiency. Improving 4. Possible aspiration pneumonia PLAN: 1. Continue mechanical ventilation. 2. EEG pending 3. Antibiotics for possible aspiration pneumonia. 4. Continue volume resuscitation 5. DVT and GI prophylaxis. 6. Neurology recommendations consider cerebral perfusion study Disposition Continue ICU care Discussed with nursing staff Critical care time 35 minutes Patient was rewarmed but had no neuro recovery. Subsequent EEG and apnea test c/ w brain . Patient case reviewed with family who concurs with sensation of therapeutics. Pending Labs/Cultures Laboratory Tests Test 06/26/16 21:34 06/27/16 00:25 06/27/16 02:30 06/27/16 05:18 Bedside Glucose 152mg/dL (70-220) 154mg/dL (70-220) 145mg/dL (70-220) White Blood Count 9.210^3/ul (4.8-10.8) Red Blood Count 2.8610^6/ul (4.70-6.10) Hemoglobin 8.9g/dl (14.0-18.0) Hematocrit 25.9% (42.0-52.0) Mean Corpuscular Volume 90.6fl (82.0-101.0) Mean Corpuscular Hemoglobin 31.1pg (29.0-33.0) Mean Corpuscular Hemoglobin Concent 34.4g/dl (32.0-37.0) Red Cell Distribution Width 19.4% (11.5-14.5) Platelet Count 62087^3/UL (140-415) Mean Platelet Volume 11.5fl (7.4-10.4) Neutrophils % 85.0% (39.0-77.0) Band Neutrophils % 2.0% (0.0-5.0) Lymphocytes % 7.0% (15.0-51.0) Monocytes % 6.0% (0.0-11.0) Nucleated Red Blood Cells % 1.0/100WBC (0.0-0.0) Neutrophils # 7.810^3/ul (1.6-7.5) Lymphocytes # 0.610^3/ul (0.8-2.9) Monocytes # 0.610^3/ul (0.3-0.9) Platelet Estimate PLT APPEAR DECREASED Sodium Level 146mmol/L (135-144) Potassium Level 4.0mmol/L (3.5-5.1) Chloride Level 111mmol/L (97-110) Carbon Dioxide Level 23mmol/L (21-31) Anion Gap 16 (8-16) Blood Urea Nitrogen 65mg/dl (7-20) Creatinine 2.55mg/dl (0.61-1.24) Glucose Level 150mg/dl (70-220) Calcium Level 8.2mg/dl (8.4-10.2) Ionized Calcium (Measured) 1.2mmol/L (1.1-1.4) Phosphorus Level 4.5mg/dl (2.5-4.9) Magnesium Level 2.5mg/dl (1.7-2.5) Amylase Level 239U/L (11-123) Lipase 1466U/L (23-300) Test 06/27/16 09:40 06/27/16 13:08 Bedside Glucose 176mg/dL (70-220) 181mg/dL (70-220) RAJAT CASTRO MD Jun 27, 2016 19:38
== END 2016-06-27 18:56 | disposition expired | DRG 870 ==
LOC: E/R 11:36 → ICU 14:02
PROVIDERS: ADMIT Internal Medicine; ATTEND Internal Medicine
PROC: 5A1955Z Respiratory Ventilation, Greater than 96 Consecutive Hours (ICD-10-PCS; principal; 2016-06-23)
PROC: 0BH17EZ Insertion of Endotracheal Airway into Trachea, Via Natural or Artificial Opening (ICD-10-PCS; 2016-06-23)
PROC: 6A4Z0ZZ Hypothermia, Single (ICD-10-PCS; 2016-06-23)
DX: A40.3 Sepsis due to Streptococcus pneumoniae (principal); I21.4 Non-ST elevation (NSTEMI) myocardial infarction; J96.00 Acute respiratory failure, unspecified whether with hypoxia or hypercapnia; J18.9 Pneumonia, unspecified organism; R65.21 Severe sepsis with septic shock; N17.9 Acute kidney failure, unspecified; G93.40 Encephalopathy, unspecified; Z99.11 Dependence on respirator [ventilator] status; I48.2 Chronic atrial fibrillation; E87.2 Acidosis; I42.9 Cardiomyopathy, unspecified; M62.82 Rhabdomyolysis; E11.22 Type 2 diabetes mellitus with diabetic chronic kidney disease; I08.3 Combined rheumatic disorders of mitral, aortic and tricuspid valves; I45.10 Unspecified right bundle-branch block; D64.9 Anemia, unspecified; E78.5 Hyperlipidemia, unspecified; H35.30 Unspecified macular degeneration; K21.9 Gastro-esophageal reflux disease without esophagitis; G25.2 Other specified forms of tremor; I25.10 Atherosclerotic heart disease of native coronary artery without angina pectoris; I12.9 Hypertensive chronic kidney disease with stage 1 through stage 4 chronic kidney disease, or unspecified chronic kidney disease; N18.9 Chronic kidney disease, unspecified; Z96.1 Presence of intraocular lens; Z79.4 Long term (current) use of insulin; Z79.01 Long term (current) use of anticoagulants; Z87.891 Personal history of nicotine dependence; Z98.42 Cataract extraction status, left eye; Z95.5 Presence of coronary angioplasty implant and graft
CPT/HCPCS: 31500; 36415; 36600; 70450; 71010; 71275; 74000; 75635; 80048; 80053; 81001; 81003; 82150; 82330; 82550; 82553; 82803; 82962; 83605; 83690; 83735; 84100; 84132; 84484; 85025; 85384; 85610; 85651; 85730; 86850; 86900; 86901; 87040; 87081; 87086; 93005; 94002; 94003; 94770; 96374; 96375; C1751; C9113; J1815; J2543; J3370; J3475; J3480; J7030; J7040; J7120; Q9967